=== PATIENT | female | born 1975 | race Caucasian/White ===

== ENCOUNTER 2016-09-04 21:26 | Inpatient (IN) | payer MEDICARE ==
[~2016-09-04 21:26] MED LIST: ROCURONIUM BROMIDE INJ 50 MG/5 ML VIAL IV ONE
[2016-09-04] MEDS ORDERED: FENTANYL CITRATE INJ/PF 100 MCG/2 ML AMPUL ONE (21:38)
[2016-09-04] MEDS ORDERED: PROPOFOL 100 ML IV ONE (21:38)
[2016-09-04] MEDS ORDERED: FENTANYL CITRATE INJ/PF 100 MCG/2 ML AMPUL IV ONE (21:44)
[2016-09-04] MEDS ORDERED: KETAMINE HCL INJ 500 MG/10 ML VIAL IV ONE (21:44)
[2016-09-04] MEDS ORDERED: PROPOFOL 100 ML IV PRN (21:44)
[2016-09-04] MEDS ORDERED: ROCURONIUM BROMIDE INJ 50 MG/5 ML VIAL IV ONE (21:44)
--- NOTE | 2016-09-04 21:44 | ER Document Report ---
ED General - General Chief Complaint: Possible Overdose Stated Complaint: ALTERED MENTAL STATUS Cannot obtain history due to: Altered mental status Notes: Patient is a 41-year-old female who presents by EMS after being found unresponsive face down on her bed covered in feces by her son. In route to the emergency room and she was intermittently combative with EMS staff but then would become completely unresponsive. She has had a history of multiple similar presentations in the past. No additional history can be obtained secondary to patient's mental status and critical nature time of arrival. TRAVEL OUTSIDE OF THE [place] IN LAST 30 DAYS: No - Related Data Allergies/Adverse Reactions: morphine [Morphine] Allergy (Severe, Verified 11/29/15 21:03) VOMITING trazodone [Trazodone] Allergy (Severe, Verified 11/29/15 21:03) codeine [Codeine] Allergy (Intermediate, Verified 11/29/15 21:03) Sulfa (Sulfonamide Antibiotics) Allergy (Verified 11/29/15 20:55) Home Medications: Current Home Medications Baclofen [Baclofen] 20 mg PO Q4H 09/05/16 [History] Ibuprofen [Motrin 800 mg Tablet] 800 mg PO Q8H PRN 09/05/16 [History] Pregabalin [Lyrica] 200 mg PO Q8H 09/05/16 [History] Past Medical History - General Information source: Emergency Med Personnel Cannot obtain history due to: Altered mental status - Social History Smoking Status: Unknown if Ever Smoked Lives with: Family Family History: Other - Depression - Past Medical History Cardiac Medical History: Denies: Hx Heart Attack, Hx Hypertension Pulmonary Medical History: Reports: Hx Asthma - medicated, Hx Sleep Apnea Neurological Medical History: Reports: Hx Migraine. Denies: Hx Cerebrovascular Accident, Hx Seizures GI Medical History: Denies: Hx Hepatitis, Hx Hiatal Hernia, Hx Ulcer Musculoskeltal Medical History: Reports Hx Arthritis Psychiatric Medical History: Reports: Hx Anxiety, Hx Bipolar Disorder, Hx Depression Infectious Medical History: Denies: Hx Hepatitis Past Surgical History: Reports: Hx Adenoidectomy - 3 TIMES REMOVED, Hx Gastric Bypass Surgery, Hx Tonsillectomy - 3 TIMES REMOVED. Denies: Hx Mastectomy, Hx Open Heart Surgery, Hx Pacemaker Review of Systems - Review of Systems -: Yes ROS unobtainable due to patient's medical condition Physical Exam - Vital signs Vitals: Resp BP Pulse Ox 19 144/128 H 99 09/04/16 21:27 09/04/16 21:27 09/04/16 21:27 Interpretation: Normal Notes: PHYSICAL EXAMINATION: GENERAL: Obtunded, GCS 6 HEAD: Atraumatic, normocephalic. EYES: He was 3 mm and equally reactive to light. ENT: Very dry mucous membranes NECK: supple without lymphadenopathy LUNGS: Clear going upper airway noises are transmitted. Breath sounds are otherwise clear to auscultation bilaterally and equal. No wheezes rales or rhonchi. HEART: Regular rate and rhythm without murmurs ABDOMEN: Morbidly obese abdomen. Soft, normoactive bowel sounds. No guarding, no rebound. No masses appreciated. EXTREMITIES: no pitting or edema. No cyanosis. NEUROLOGICAL: Moves all extremities spontaneously to noxious stimuli but does not follow commands in any extremities. Does not open eyes to noxious stimuli. No verbal response. PSYCH: Obtunded SKIN: Warm, Dry, normal turgor, multiple ecchymosis of bilateral knees and lower extremities Course - Re-evaluation Re-evalutation: 09/04/16 21:42 Patient presents obtunded, not protecting her airway. She only responded to noxious stimuli. She will not answer any questions and does not follow commands in any extremity. She had gurgling respirations and given her lack of ability to protect her airway, I moved to intubate the patient shortly after her arrival. This is achieved without difficulty on first pass using a video mac 4. She has been started on propofol for postintubation sedation. [facility], CT of the head, and urinalysis will be obtained. Patient has a repeat history of presenting with altered mental status in the setting of polysubstance overdose and the son who was on scene apparently feels that the patient likely again did this today. 09/04/16 23:05 Patient remains sedated without requirement of escalation of propofol dosing. Laboratories are returning unremarkable. CT the head is pending. Chest x-ray shows appropriate ET tube placement with atelectasis at the left lobe base versus possible pneumonia. Given the absence of fever, tachycardia, hypotension , leukocytosis, or clinical history I do not suspect an acute pneumonia. Patient will require admission. 09/04/16 23:34 Patient continues to be appropriately sedated. Vitals within normal limits. Her laboratories at this point a complete unremarkable and a CT the head is negative. 09/04/16 23:47 Patient remains sedated on minimal propofol. I discussed this case with the hospitalist Dr. An was accepted for admission at this time - Vital Signs Vital signs: Temp Pulse Resp BP Pulse Ox 97.0 F 14 132/100 H 100 09/05/16 02:30 09/05/16 02:30 09/05/16 02:31 09/05/16 02:26 - Laboratory Result Diagrams: 09/04/16 21:50 09/04/16 22:53 Laboratory results interpreted by me: 09/04/16 09/04/16 09/04/16 21:50 22:12 22:53 Hgb 11.3 L Hct 35.6 L MCH 25.6 L MCHC 31.8 L RDW 17.5 H Sodium 145.8 H Potassium 3.3 L Chloride 110 H AST 44 H Total Protein 5.9 L Albumin 3.3 L Urine Ketones TRACE H Salicylates < 1.0 L Acetaminophen < 10 L - Diagnostic Test Radiology reviewed: Image reviewed, Reports reviewed Radiology results interpreted by me: 09/05/16 04:22 Chest x-ray: ET tube is in appropriate position. CT head: No acute intracranial bleed - EKG Interpretation by Me Additional EKG results interpreted by me: 09/05/16 04:23 Normal sinus rhythm. Rate 85. No ST elevations or depressions. QTC is 467. Procedures - Intubation Orotracheal Time of Intubation: 21:40 Airway evaluation: Normal anatomy Mallampati Classification: Class 2 Medications: Ketamine, Other - Rocuronium Intubation method: Orotracheal Blade type: Zackery Blade size: 4 Equipment used: Glidescope ETT size: 7.5 ETT secured at: Gums ETT secured at (cm): 21 Breath Sounds after Intubation: Equal End tidal CO2 confirmed: Yes Ventilator settings: SIMV Tidal volume: 450 FiO2: 45 Respirations: 14 Pressure support: 0 PEEP: 8 Post Intubation Xray: Yes Intubation Complications: No complications Critical Care Note - Critical Care Note Total time excluding time spent on procedures (mins): 40 Comments: Critical care time spent obtaining history from patient or surrogate, discussions with consultants, development of treatment plan with patient or surrogate, evaluation of patient's response to treatment, examination of patient , ordering and performing treatments and interventions, ordering and review of laboratory studies, re-evaluation of patient's condition, ordering and review of radiographic studies and review of old charts Discharge - Discharge Condition: Critical Disposition: ADMITTED INPATIENT Admitting Provider: Linda Barragan Juve Josué Admitted: ICU
[2016-09-04] MEDS ORDERED: NALOXONE HCL INJ/PF 0.4 MG/1 ML SDV IV ONE (21:45)
[2016-09-04] MEDS ORDERED: NORMAL SALINE 1000 ML 1,000 ML IV ONE ×2 (21:45→23:34)
[2016-09-04 22:10] LABS: ABSOLUTE MONOCYTES (AUTO) 0.8 10^3/uL (0.1-1.4); BASOPHILS % (AUTO) 0.5 % (0-2); EOSINOPHILS % (AUTO) 0.6 % (0-6); HEMATOCRIT 35.6 % (36.0-47.0); HEMOGLOBIN 11.3 g/dL (12.0-15.5); HGB HCT DIFFERENCE -1.7; LYMPHOCYTES % (AUTO) 16.9 % (13-45); MEAN CORPUSCULAR HEMOGLOBIN 25.6 pg (27.0-33.4); MEAN CORPUSCULAR HGB CONC 31.8 g/dL (32.0-36.0); MEAN CORPUSCULAR VOLUME 81 fl (80-97); MONOCYTES % (AUTO) 12.9 % (3-13); RED BLOOD COUNT 4.41 10^6/uL (3.72-5.28); RED CELL DISTRIBUTION WIDTH 17.5 % (11.5-14.0); SEGMENTED NEUTROPHILS % (AUTO) 69.1 % (42-78); WHITE BLOOD COUNT 5.9 10^3/uL (4.0-10.5)
[2016-09-04 22:47] LABS: URINE BARBITURATES SCREEN NEGATIVE; URINE METHADONE SCREEN NEGATIVE; URINE OPIATES LOW NEGATIVE; URINE PHENCYCLIDINE SCREEN NEGATIVE
[2016-09-04 22:49] LABS: APPEARANCE,URINE SLIGHTLY-CLOUDY; BILIRUBIN,URINE NEGATIVE (NEGATIVE); GLUCOSE, URINE NEGATIVE (NEGATIVE); KETONES,URINE TRACE mg/dL (NEGATIVE); LEUKOCYTE ESTERASE,URINE NEGATIVE (NEGATIVE); NITRITE,URINE NEGATIVE (NEGATIVE); PROTEIN,URINE NEGATIVE (NEGATIVE); URINE SPECIFIC GRAVITY 1.009; UROBILINOGEN,URINE NEGATIVE mg/dL (<2.0)
[2016-09-04 23:15] LABS: ALANINE AMINOTRANSFERASE 38 U/L (9-52); ALBUMIN 3.3 g/dL (3.5-5.0); ALKALINE PHOSPHATASE 71 U/L (38-126); ANION GAP 11 (5-19); ASPARTATE AMINO TRANSFERASE 44 U/L (14-36); BILIRUBIN,TOTAL 0.9 mg/dL (0.2-1.3); BLOOD UREA NITROGEN 14 mg/dL (7-20); CARBON DIOXIDE 25 mmol/L (22-30); CHLORIDE 110 mmol/L (98-107); CREATININE RESULT 0.58 mg/dL (0.52-1.25); GLUCOSE 110 mg/dL (75-110); POTASSIUM 3.3 mmol/L (3.6-5.0); SODIUM 145.8 mmol/L (137-145); TOTAL PROTEIN 5.9 g/dL (6.3-8.2)
[2016-09-04 23:17] LABS: ALCOHOL < 10 mg/dL (NONE DETECTED)
[2016-09-04] MEDS ORDERED: IPRATROPIUM/ALBUTEROL 0.5-2.5 MG/3 ML AMPUL NEB PRN (23:44)
[2016-09-05 00:09] LABS: PROTHROMBIN TIME 13.7 SEC (11.4-15.4)
[2016-09-05] MEDS ORDERED: NALOXONE HCL INJ/PF 0.4 MG/1 ML SDV ONE (00:15)
[2016-09-05] MEDS: POTASSI CL 20 MEQ/1/2NS 1L 20 MEQ/1,000 ML RTUINJ IV SCH ×4 (00:30→15:59)
[2016-09-05] MEDS: PROPOFOL 100 ML IV PRN ×8 (01:12→22:19)
--- NOTE | 2016-09-05 02:23 | PDOC H&P ---
History of Present Illness Admission Date/PCP: 09/04/16 23:45 Patient complains of: Altered mental status History of Present Illness: GILBERT WANG is a 41 year old female with a past medical history of polysubstance abuse, chronic pain, depression, gastric bypass and recurrent presentations of suspected overdose requiring intubation and critical care. Who is found by her son lying prone on the ground poorly responsive after hearing a loud bang. EMS at the scene discovered her in the deplorable condition surrounded by fecal matter and combative in the emergency room she is poorly responsive without improvement to Narcan and requiring intubation for airway protection. Toxicology is negative she's referred to the hospitalist for admission. Past Medical History Cardiac Medical History: Denies: Myocardial Infarction, Hypertension Pulmonary Medical History: Reports: Asthma - medicated, Sleep Apnea Neurological Medical History: Reports: Migraine Denies: Seizures GI Medical History: Denies: Hepatitis, Hiatal Hernia Musculoskeltal Medical History: Reports: Arthritis Psychiatric Medical History: Reports: Bipolar Disorder, Depression Hematology: Denies: Anemia, Sickle Cell Disease Past Surgical History Past Surgical History: Reports: Adenoidectomy - 3 TIMES REMOVED, Gastric Bypass Surgery, Tonsillectomy - 3 TIMES REMOVED Denies: Amputation, Mastectomy, Pacemaker Social History Information Source: [facility] Records Lives with: Family Smoking Status: Current Every Day Smoker Frequency of Alcohol Use: None Hx Recreational Drug Use: No Drugs: None, Other Hx Prescription Drug Abuse: Yes - opioids and narcotics - Advance Directive Resuscitation Status: Full Code Family History Family History: Other - Depression Parental Family History Reviewed: Yes Children Family History Reviewed: Yes Sibling(s) Family History Reviewed.: Yes Medication/Allergy Home Medications: Ropinirole HCl 2 mg PO BID 12/06/15 Duloxetine HCl 60 mg PO BID 04/08/16 Eszopiclone 6 mg PO QHS 04/08/16 Hydromorphone HCl 4 mg PO BIDP PRN 04/08/16 Meloxicam 7.5 mg PO BIDP PRN 04/08/16 Ondansetron HCl 4 mg PO QID 04/08/16 Pregabalin [Lyrica] 200 mg PO TID 04/08/16 Propranolol HCl [Propranolol HCl ER] 80 mg PO QHS 04/08/16 Tizanidine HCl 8 mg PO QHS 04/08/16 Tizanidine HCl 1 tab PO DAILYP PRN 04/09/16 Acetaminophen [Tylenol 325 mg Tablet] 650 mg PO Q4HP PRN tablet 04/10/16 Baclofen [Baclofen] 20 mg PO Q4H 09/05/16 Ibuprofen [Motrin 800 mg Tablet] 800 mg PO Q8H PRN 09/05/16 Pregabalin [Lyrica] 200 mg PO Q8H 09/05/16 Allergies/Adverse Reactions: morphine [Morphine] Allergy (Severe, Verified 11/29/15 21:03) VOMITING trazodone [Trazodone] Allergy (Severe, Verified 11/29/15 21:03) codeine [Codeine] Allergy (Intermediate, Verified 11/29/15 21:03) Sulfa (Sulfonamide Antibiotics) Allergy (Verified 11/29/15 20:55) Review of Systems ROS unobtainable: Due to mental status Physical Exam Vital Signs: Temp Pulse Resp BP Pulse Ox 96.7 F L 14 129/79 H 100 09/05/16 02:01 09/05/16 02:01 09/05/16 02:01 09/05/16 02:01 General appearance: PRESENT: other - Intubated and sedated Head exam: PRESENT: atraumatic, normocephalic Eye exam: PRESENT: conjunctiva pink, EOMI, PERRLA, other - Pupils symmetric but sluggishly reactive. ABSENT: conjunctival injection, conjunctiva pale, periorbital swelling, scleral icterus Ear exam: PRESENT: normal external ear exam Mouth exam: PRESENT: moist, tongue midline Neck exam: ABSENT: carotid bruit, JVD, lymphadenopathy, thyromegaly Respiratory exam: PRESENT: clear to auscultation geetha. ABSENT: rales, rhonchi, wheezes Cardiovascular exam: PRESENT: RRR. ABSENT: diastolic murmur, rubs, systolic murmur Pulses: PRESENT: normal dorsalis pedis pul Vascular exam: PRESENT: normal capillary refill GI/Abdominal exam: PRESENT: normal bowel sounds, soft. ABSENT: distended, guarding, mass, organolmegaly, rebound, tenderness Rectal exam: PRESENT: deferred Extremities exam: PRESENT: other - Bilateral lower extremity lesion suggestive of erythema nodosum Neurological exam: PRESENT: other - Sedated and encephalopathic Skin exam: PRESENT: dry, intact, warm, other - Lower extremity lesions suggestive of erythema nodosum no open lesion or exudate. ABSENT: cyanosis, rash Adult Front & Back Image: 1 - Multiple 2 to 5 cm erythemic, nonulcerated lesions, no evidence of joint involvement Results Impressions: Chest X-Ray 09/04/16 21:45 IMPRESSION: Patchy airspace disease in the left lower lobe. Endotracheal tube tip overlies the mid trachea. Nasogastric catheters present with tip overlying the body of the stomach. Head CT 09/04/16 22:17 IMPRESSION: No acute intracranial findings. Assessment & Plan - Diagnosis (1) Overdose Is this a current diagnosis for this admission?: YesPlan: Patient has had several recent similar presentations, toxicology negative, EKG and chemistry unremarkable, continue supportive measures (2) Acute encephalopathy Is this a current diagnosis for this admission?: YesPlan: Patient's medication reconciliation includes Esozpiclone. Continue supportive measures (3) Obstructive sleep apnea Is this a current diagnosis for this admission?: YesPlan: Patient intubated for airway protection obtain an ABG in a.m. - Time Time Spent: 30 to 50 Minutes
[2016-09-05 04:33] LABS: ABSOLUTE EOSINOPHILS # (AUTO) 0.1 10^3/uL (0.0-0.6); ABSOLUTE LYMPHOCYTES (AUTO) 1.7 10^3/uL (0.5-4.7); ABSOLUTE MONOCYTES (AUTO) 0.7 10^3/uL (0.1-1.4); ABSOLUTE NEUT (AUTO) 3.1 10^3/uL (1.7-8.2); BASOPHILS % (AUTO) 0.5 % (0-2); EOSINOPHILS % (AUTO) 1.2 % (0-6); HEMOGLOBIN 10.3 g/dL (12.0-15.5); HGB HCT DIFFERENCE -1.1; LYMPHOCYTES % (AUTO) 30.2 % (13-45); MEAN CORPUSCULAR HEMOGLOBIN 26.2 pg (27.0-33.4); MEAN CORPUSCULAR HGB CONC 32.3 g/dL (32.0-36.0); MEAN CORPUSCULAR VOLUME 81 fl (80-97); RED BLOOD COUNT 3.95 10^6/uL (3.72-5.28); RED CELL DISTRIBUTION WIDTH 18.1 % (11.5-14.0); SEGMENTED NEUTROPHILS % (AUTO) 56.1 % (42-78); WHITE BLOOD COUNT 5.5 10^3/uL (4.0-10.5)
[2016-09-05] MEDS ORDERED: INFLUENZA ADLT QUAD (36MOS+) 2016-17 VAC 0.5 ML SYR IM PRN (04:51)
[2016-09-05 05:00] LABS: ANION GAP 13 (5-19); BLOOD UREA NITROGEN 12 mg/dL (7-20); CALCIUM 8.5 mg/dL (8.4-10.2); CARBON DIOXIDE 21 mmol/L (22-30); CHLORIDE 109 mmol/L (98-107); CREATININE RESULT 0.57 mg/dL (0.52-1.25); GLUCOSE 86 mg/dL (75-110); POTASSIUM 3.7 mmol/L (3.6-5.0); SODIUM 142.5 mmol/L (137-145)
[2016-09-05 05:46] LABS: ARTERIAL BLOOD BASE EXCESS -6.2 mmol/L; ARTERIAL BLOOD O2 SATURATION 98.7 % (94-98)
[2016-09-05] MEDS: HEPARIN SOD (PORCINE) 5,000 UNIT/ML 1 ML SYRINGE SUBCUT SCH ×3 (05:51→21:10)
[2016-09-05] MEDS ORDERED: PHARMACY COMMUNICATION ORDER MC NR ×2 (07:45→09:45)
[2016-09-05 08:27] LABS: MAGNESIUM 1.9 mg/dL (1.6-2.3)
--- NOTE | 2016-09-05 08:33 | EKG REPORT ---
SEVERITY:- BORDERLINE ECG - SINUS RHYTHM PROBABLE LEFT ATRIAL ABNORMALITY : Confirmed by: Kody Lloyd MD 05-Sep-2016 08:32:27
[2016-09-05] MEDS ORDERED: GLUCAGON,HUMAN RECOMB 1 MG INJ IM PRN (09:35)
[2016-09-05] MEDS ORDERED: DEXTROSE 50%-WATER 25 GM/50 ML DISP.SYRIN IV PRN ×2 (09:35)
[2016-09-05] MEDS ORDERED: INSULIN LISPRO 100 UNIT/ML 3 ML VIAL SUBCUT PRN (09:35)
[2016-09-05] MEDS ORDERED: DEXTROSE 40% GEL 15 GM TUBE PO PRN ×2 (09:35)
[2016-09-05] MEDS ORDERED: CLONIDINE 0.1 MG/24 HR PATCH.TDWK TD SCH ×2 (10:00→22:00)
[2016-09-05 10:09] LABS: ALANINE AMINOTRANSFERASE 44 U/L (9-52); ALBUMIN 3.1 g/dL (3.5-5.0); ALKALINE PHOSPHATASE 69 U/L (38-126); ANION GAP 10 (5-19); ASPARTATE AMINO TRANSFERASE 38 U/L (14-36); BILIRUBIN,TOTAL 0.8 mg/dL (0.2-1.3); BLOOD UREA NITROGEN 10 mg/dL (7-20); CALCIUM 8.7 mg/dL (8.4-10.2); CARBON DIOXIDE 21 mmol/L (22-30); CHLORIDE 110 mmol/L (98-107); CREATININE RESULT 0.55 mg/dL (0.52-1.25); GLUCOSE 79 mg/dL (75-110); POTASSIUM 3.6 mmol/L (3.6-5.0); SODIUM 140.8 mmol/L (137-145); TOTAL PROTEIN 5.6 g/dL (6.3-8.2)
--- NOTE | 2016-09-05 10:38 | Physician Advisory Note ---
Physician Advisor ProgressNote .: Pursuant to the plan for [facility], I have reviewed the medical record for this patient. Physician Advisor Statement: Possible documentation opportunities if attending agrees: 1. ? - "possible sepsis, present on admission, with hypothermia, tachycardia and acute encephalopathy, due to ____, despite negative BCs, ruled in/out" 2. ? - "Acute Respiratory Failure due to drug overdose [+aspir PNA + obesity], with associated obtunded mental status and 'notably poor respiratory drive' per triage nurse, having gurgling respirations & not protecting her airway" (total GCS was 6-8 initially) 3. "LLL Pneumonia, suspect aspiration type given AMS" 4. "obesity with BMI 43" 5. "hypernatremia, likely due to intravascular volume depletion, due to acute toxic encephalopathy from overdose" As always, if concerned about any unstable VS or abnormal labs, please comment on them & note what doing about them, & please document each day the potential clinical problems you are concerned could occur if pt not kept in hospital for tx at this time. Thanks for your help with documentation accuracy/specificity improvement! Kathya Collier MD [facility] Physician Advisor, Fellow of Hospital Medicine
[2016-09-05] MEDS: PROPRANOLOL HCL 40 MG TABLET NG SCH ×2 (10:51→21:09)
[2016-09-05] MEDS: MIDAZOLAM HCL 100 ML IV PRN ×2 (10:52→18:04)
[2016-09-05] MEDS: HALOPERIDOL LACTATE INJ 5 MG/1 ML VIAL IV PRN (10:53)
[2016-09-05] MEDS: NYSTATIN TOPICAL POWDER 15 GM TP SCH ×2 (10:53→18:59)
[2016-09-05] MEDS: FENTANYL CITRATE INJ/PF 100 MCG/2 ML AMPUL IV PRN ×2 (10:54→18:06)
[2016-09-05 12:25] LABS: ARTERIAL BLOOD O2 SATURATION 98.6 % (94-98)
[2016-09-05 14:52] LABS: ANION GAP 10 (5-19); BLOOD UREA NITROGEN 9 mg/dL (7-20); CALCIUM 8.5 mg/dL (8.4-10.2); CARBON DIOXIDE 19 mmol/L (22-30); CHLORIDE 110 mmol/L (98-107); CREATININE RESULT 0.57 mg/dL (0.52-1.25); GLUCOSE 83 mg/dL (75-110); POTASSIUM 3.6 mmol/L (3.6-5.0); SODIUM 139.1 mmol/L (137-145)
--- NOTE | 2016-09-05 15:01 | PDOC CONSULTATION ---
Consultation Consult Date: 09/05/16 Attending physician:: ANTONIO MCDONNELL Consult reason:: resp fail History of Present Illness Admission Date/PCP: 09/04/16 23:45 History of Present Illness: All information from chart as patient is intubated and sedated no family members at the bedside GILBERT WANG is a 41 year old female with a past medical history of polysubstance abuse, chronic pain, depression, gastric bypass and recurrent presentations of suspected overdose requiring intubation and critical care. Who is found by her son lying prone on the ground poorly responsive after hearing a loud bang. EMS at the scene discovered her in the deplorable condition surrounded by fecal matter and combative in the emergency room she is poorly responsive without improvement to Narcan and requiring intubation for airway protection. Toxicology is negative she's referred to the hospitalist for admission. She has been followed several times in the past [facility] Past Medical History Cardiac Medical History: Denies: Myocardial Infarction, Hypertension Pulmonary Medical History: Reports: Asthma - medicated, Sleep Apnea Neurological Medical History: Reports: Migraine Denies: Seizures GI Medical History: Denies: Hepatitis, Hiatal Hernia Musculoskeltal Medical History: Reports: Arthritis Psychiatric Medical History: Reports: Bipolar Disorder, Depression Hematology: Denies: Anemia, Sickle Cell Disease Past Surgical History Past Surgical History: Reports: Adenoidectomy - 3 TIMES REMOVED, Gastric Bypass Surgery, Tonsillectomy - 3 TIMES REMOVED Denies: Amputation, Mastectomy, Pacemaker Social History Lives with: Family Smoking Status: Unknown if Ever Smoked Frequency of Alcohol Use: None Hx Recreational Drug Use: No Drugs: None, Other Hx Prescription Drug Abuse: Yes - Advance Directive Resuscitation Status: Full Code Family History Family History: Other - Depression Parental Family History Reviewed: No Children Family History Reviewed: No Sibling(s) Family History Reviewed.: No Medication/Allergy Home Medications: Baclofen [Baclofen 20 Mg Tablet] 20 mg PO TID 09/05/16 Ibuprofen [Motrin 800 mg Tablet] 800 mg PO BIDP PRN 09/05/16 Ondansetron HCl [Zofran] 4 mg PO Q8HP PRN 09/05/16 Pregabalin [Lyrica] 200 mg PO TID 09/05/16 Tizanidine HCl [Zanaflex 4 Mg Tablet] 4 mg PO DAILYP PRN 09/05/16 Tizanidine HCl [Zanaflex 4 Mg Tablet] 8 mg PO QHS 09/05/16 Allergies/Adverse Reactions: morphine [Morphine] Allergy (Severe, Verified 11/29/15 21:03) VOMITING trazodone [Trazodone] Allergy (Severe, Verified 11/29/15 21:03) codeine [Codeine] Allergy (Intermediate, Verified 11/29/15 21:03) Sulfa (Sulfonamide Antibiotics) Allergy (Verified 11/29/15 20:55) Review of Systems ROS unobtainable: Due to endotracheal tube Physical Exam Vital Signs: Temp Pulse Resp BP Pulse Ox 97.3 F 62 14 151/90 H 100 09/05/16 06:55 09/05/16 06:00 09/05/16 06:55 09/05/16 06:00 09/05/16 06:55 Intake & Output 09/04/16 09/05/16 09/06/16 06:59 06:59 06:59 Intake Total 697 Output Total 225 Balance 472 Weight 120.8 kg General appearance: PRESENT: no acute distress, disheveled, well-developed, well -nourished Head exam: PRESENT: atraumatic, normocephalic Eye exam: PRESENT: conjunctiva pale Mouth exam: PRESENT: neck supple, tongue midline Neck exam: PRESENT: carotid bruit Respiratory exam: PRESENT: crackles, decreased breath sounds, prolonged expiratory phas, rhonchi, unlabored, other - LLLobe Cardiovascular exam: PRESENT: RRR, +S1, +S2 Pulses: PRESENT: normal radial pulses GI/Abdominal exam: PRESENT: normal bowel sounds, soft. ABSENT: distended, guarding, mass, organolmegaly, rebound, tenderness Rectal exam: PRESENT: deferred Gentrourinary exam: PRESENT: indwelling catheter Skin exam: PRESENT: other - Various stages of subcutaneous ecchymosis was prominent over the lower extremities minor trauma with abrasions and excoriations to heels of feet bilaterally Results Laboratory Results: 09/05/16 04:04 09/05/16 04:04 09/05/16 09/05/16 09/05/16 04:04 04:04 05:18 WBC 5.5 RBC 3.95 Hgb 10.3 L Hct 32.0 L MCV 81 MCH 26.2 L MCHC 32.3 RDW 18.1 H Plt Count 158 Seg Neutrophils % 56.1 Lymphocytes % 30.2 Monocytes % 12.0 Eosinophils % 1.2 Basophils % 0.5 Absolute Neutrophils 3.1 Absolute Lymphocytes 1.7 Absolute Monocytes 0.7 Absolute Eosinophils 0.1 Absolute Basophils 0.0 Carbonic Acid 0.81 L HCO3/H2CO3 Ratio 20:1 ABG pH 7.42 ABG pCO2 27.0 L ABG pO2 132.4 H ABG HCO3 17.0 L ABG O2 Saturation 98.7 H ABG Base Excess -6.2 FiO2 35% Sodium 142.5 Potassium 3.7 Chloride 109 H Carbon Dioxide 21 L Anion Gap 13 BUN 12 Creatinine 0.57 Est GFR ( Amer) > 60 Est GFR (Non-Af Amer) > 60 Glucose 86 Lactic Acid Calcium 8.5 Magnesium 09/05/16 09/05/16 07:59 07:59 WBC RBC Hgb Hct MCV MCH MCHC RDW Plt Count Seg Neutrophils % Lymphocytes % Monocytes % Eosinophils % Basophils % Absolute Neutrophils Absolute Lymphocytes Absolute Monocytes Absolute Eosinophils Absolute Basophils Carbonic Acid HCO3/H2CO3 Ratio ABG pH ABG pCO2 ABG pO2 ABG HCO3 ABG O2 Saturation ABG Base Excess FiO2 Sodium Potassium Chloride Carbon Dioxide Anion Gap BUN Creatinine Est GFR ( Amer) Est GFR (Non-Af Amer) Glucose Lactic Acid 0.6 L Calcium Magnesium 1.9 09/05/16 07:59 Creatine Kinase 299 H Impressions: Chest X-Ray 09/04/16 21:45 IMPRESSION: Patchy airspace disease in the left lower lobe. Endotracheal tube tip overlies the mid trachea. Nasogastric catheters present with tip overlying the body of the stomach. Head CT 09/04/16 22:17 IMPRESSION: No acute intracranial findings. Assessment & Plan - Diagnosis (1) Acute encephalopathy Is this a current diagnosis for this admission?: YesPlan: Etiology of drug abuse not known (2) Overdose Is this a current diagnosis for this admission?: YesPlan: Drug screen is negative at this time (3) Polysubstance overdose Qualifiers: Encounter type: initial encounter Injury intent: undetermined intent Qualified Code(s): T50.904A - Poisoning by unspecified drugs, medicaments and biological substances, undetermined, initial encounter Is this a current diagnosis for this admission?: YesPlan: Per chart long history of polysubstance abuse (4) Morbid obesity with BMI of 50.0-59.9, adult Is this a current diagnosis for this admission?: YesPlan: Unchanged (5) Obstructive sleep apnea Is this a current diagnosis for this admission?: YesPlan: Currently mechanically ventilated no evidence to support use of CPAP if CPAP is at home (6) Asthma Is this a current diagnosis for this admission?: YesPlan: Bronchodilator therapy (7) Community acquired pneumonia Is this a current diagnosis for this admission?: YesPlan: Left lower lobe patchy infiltrates per radiology; WBC normal no left shift no bandemia; T-max 99.5 (8) Tobacco dependency Is this a current diagnosis for this admission?: YesPlan: Transdermal nicotine (9) Acute respiratory failure Qualifiers: Respiratory failure complication: hypoxia and hypercapnia Qualified Code(s): J96.01 - Acute respiratory failure with hypoxia Is this a current diagnosis for this admission?: YesPlan: Continue supplemental oxygenation and ventilation as needed - Time Critical Time spent with patient: 35 or more minutes - 55 minutes
[2016-09-05] MEDS: LANSOPRAZOLE 30 MG TAB.RAP.DR NG SCH (18:05)
--- NOTE | 2016-09-05 19:51 | PDOC PROGRESS REPORT ---
Subjective Progress Note for:: 09/05/16 Subjective:: Patient is intubated and sedated. Unable to obtain review of systems. Review of patient's pharmacy records reveals that she had baclofen filled on . Physical Exam Vital Signs: Temp Pulse Resp BP Pulse Ox 97.3 F 62 14 151/90 H 100 09/05/16 06:55 09/05/16 06:00 09/05/16 06:55 09/05/16 06:00 09/05/16 06:55 Intake & Output 09/04/16 09/05/16 09/06/16 06:59 06:59 06:59 Intake Total 697 Output Total 225 Balance 472 Weight 120.8 kg Exam: General: Intubated and sedated, diaphoretic HEENT: AT/NC, PERRL WITH MYDRIASIS, oropharynx is moist, pink, no scleral icterus, no conjunctival injection Neck: No JVD, trachea midline Chest: Rhonchi left lower lobe, CV: Regular rate and rhythm, normal S1 and S2, no murmur, rub, or gallop Abdomen: Soft, nondistended, hypoactive bowel sounds Extremities: No cyanosis, clubbing or edema Skin: Multiple ecchymoses in various stages of healing on bilateral lower extremities, abrasions bilateral Achilles Results Laboratory Results: 09/05/16 04:04 09/05/16 04:04 09/05/16 09/05/16 09/05/16 04:04 04:04 05:18 WBC 5.5 RBC 3.95 Hgb 10.3 L Hct 32.0 L MCV 81 MCH 26.2 L MCHC 32.3 RDW 18.1 H Plt Count 158 Seg Neutrophils % 56.1 Lymphocytes % 30.2 Monocytes % 12.0 Eosinophils % 1.2 Basophils % 0.5 Absolute Neutrophils 3.1 Absolute Lymphocytes 1.7 Absolute Monocytes 0.7 Absolute Eosinophils 0.1 Absolute Basophils 0.0 Carbonic Acid 0.81 L HCO3/H2CO3 Ratio 20:1 ABG pH 7.42 ABG pCO2 27.0 L ABG pO2 132.4 H ABG HCO3 17.0 L ABG O2 Saturation 98.7 H ABG Base Excess -6.2 FiO2 35% Sodium 142.5 Potassium 3.7 Chloride 109 H Carbon Dioxide 21 L Anion Gap 13 BUN 12 Creatinine 0.57 Est GFR ( Amer) > 60 Est GFR (Non-Af Amer) > 60 Glucose 86 Calcium 8.5 Impressions: Chest X-Ray 09/04/16 21:45 IMPRESSION: Patchy airspace disease in the left lower lobe. Endotracheal tube tip overlies the mid trachea. Nasogastric catheters present with tip overlying the body of the stomach. Head CT 09/04/16 22:17 IMPRESSION: No acute intracranial findings. Assessment & Plan - Diagnosis (1) Sepsis Qualifiers: Sepsis type: sepsis due to unspecified organism Qualified Code(s): A41.9 - Sepsis, unspecified organism Is this a current diagnosis for this admission?: YesPlan: Sepsis criteria met on admission with tachycardia, leukocytosis, and hypothermia. Sepsis likely secondary to aspiration pneumonia. (2) Aspiration pneumonia due to inhalation of vomitus Is this a current diagnosis for this admission?: YesPlan: Have place patient on Levaquin. Pending sputum culture. Scheduled nebulized treatment. (3) Status post gastric bypass for obesity Is this a current diagnosis for this admission?: Yes (4) DVT prophylaxis Is this a current diagnosis for this admission?: YesPlan: Heparin and SCDs (5) GI prophylaxis Is this a current diagnosis for this admission?: YesPlan: Prevacid (6) Dehydration with hypernatremia Is this a current diagnosis for this admission?: YesPlan: Fluid resuscitation (7) Anemia Qualifiers: Anemia type: unspecified type Qualified Code(s): D64.9 - Anemia, unspecified Is this a current diagnosis for this admission?: Yes (8) Metabolic acidosis due to ingestion of drugs or chemicals Is this a current diagnosis for this admission?: YesPlan: Likely secondary to ketosis and also possibly secondary to sepsis. Will check a lactate. Patient has mild high anion gap metabolic acidosis. Have discussed this with Poison Control [facility] and in their experience unlikely to be an ingestion of methanol or other volitileorganic acid. Will use bicarbonate drip if needed. (9) Acute encephalopathy Is this a current diagnosis for this admission?: YesPlan: Secondary to ingestion of medications and underlying sepsis. (10) Acute respiratory failure Qualifiers: Respiratory failure complication: hypoxia and hypercapnia Qualified Code(s): J96.01 - Acute respiratory failure with hypoxia Is this a current diagnosis for this admission?: YesPlan: Have consulted Dr. logan of coronary medicine for ventilator management. (11) Morbid obesity with BMI of 45.0-49.9, adult Is this a current diagnosis for this admission?: Yes (12) Polysubstance overdose Qualifiers: Encounter type: initial encounter Injury intent: undetermined intent Qualified Code(s): T50.904A - Poisoning by unspecified drugs, medicaments and biological substances, undetermined, initial encounter Is this a current diagnosis for this admission?: YesPlan: Likely baclofen overdose. IVC (13) Obstructive sleep apnea Is this a current diagnosis for this admission?: Yes
[2016-09-05] MEDS ORDERED: SODIUM BICARBONATE 8.4% INJ 50 MEQ/50 ML DISP.SYRIN IV ONE (21:00)
[2016-09-05] MEDS: LEVOFLOXACIN 750 MG/D5W RTU 750 MG/150 ML RTUPB IV SCH (21:08)
[2016-09-05] MEDS: NORMAL SALINE 1000 ML 1,000 ML IV PRN (21:09)
[2016-09-05] MEDS ORDERED: DEXTROSE 5%-WATER 1000 ML 1,000 ML with SODIUM BICARBONATE 150 ML IV PRN ×2 (22:00)
[2016-09-05 22:50] LABS: ANION GAP 8 (5-19); BLOOD UREA NITROGEN 8 mg/dL (7-20); CALCIUM 8.7 mg/dL (8.4-10.2); CARBON DIOXIDE 25 mmol/L (22-30); CHLORIDE 108 mmol/L (98-107); CREATININE RESULT 0.58 mg/dL (0.52-1.25); GLUCOSE 100 mg/dL (75-110); POTASSIUM 3.5 mmol/L (3.6-5.0); SODIUM 140.7 mmol/L (137-145)
[2016-09-06] MEDS: PROPOFOL 100 ML IV PRN ×3 (01:54→07:31)
[2016-09-06] MEDS: FENTANYL CITRATE INJ/PF 100 MCG/2 ML AMPUL IV PRN ×2 (03:20→20:20)
[2016-09-06] MEDS: HALOPERIDOL LACTATE INJ 5 MG/1 ML VIAL IV PRN ×3 (03:21→19:38)
[2016-09-06] MEDS: LANSOPRAZOLE 30 MG TAB.RAP.DR NG SCH ×2 (05:05→16:30)
[2016-09-06] MEDS: MIDAZOLAM HCL 100 ML IV PRN (05:05)
[2016-09-06] MEDS: HEPARIN SOD (PORCINE) 5,000 UNIT/ML 1 ML SYRINGE SUBCUT SCH ×3 (05:06→22:03)
[2016-09-06 05:09] LABS: ARTERIAL BLOOD BASE EXCESS 0.4 mmol/L; ARTERIAL BLOOD O2 SATURATION 98.6 % (94-98)
[2016-09-06 05:10] LABS: ALANINE AMINOTRANSFERASE 35 U/L (9-52); ALKALINE PHOSPHATASE 71 U/L (38-126); ANION GAP 8 (5-19); ASPARTATE AMINO TRANSFERASE 31 U/L (14-36); BILIRUBIN,TOTAL 0.8 mg/dL (0.2-1.3); BLOOD UREA NITROGEN 6 mg/dL (7-20); CALCIUM 8.2 mg/dL (8.4-10.2); CARBON DIOXIDE 24 mmol/L (22-30); CHLORIDE 108 mmol/L (98-107); CREATININE RESULT 0.56 mg/dL (0.52-1.25); GLUCOSE 90 mg/dL (75-110); MAGNESIUM 1.9 mg/dL (1.6-2.3); PHOSPHORUS 3.8 mg/dL (2.5-4.5); POTASSIUM 3.6 mmol/L (3.6-5.0); SODIUM 140.1 mmol/L (137-145); TOTAL PROTEIN 5.8 g/dL (6.3-8.2); TRIGLYCERIDES 371 mg/dL (<150)
[2016-09-06 05:11] LABS: ABSOLUTE EOSINOPHILS # (AUTO) 0.1 10^3/uL (0.0-0.6); ABSOLUTE MONOCYTES (AUTO) 0.7 10^3/uL (0.1-1.4); ABSOLUTE NEUT (AUTO) 5.3 10^3/uL (1.7-8.2); BASOPHILS % (AUTO) 0.4 % (0-2); EOSINOPHILS % (AUTO) 1.3 % (0-6); HEMATOCRIT 33.7 % (36.0-47.0); HEMOGLOBIN 10.9 g/dL (12.0-15.5); LYMPHOCYTES % (AUTO) 13.6 % (13-45); MEAN CORPUSCULAR HEMOGLOBIN 25.9 pg (27.0-33.4); MEAN CORPUSCULAR HGB CONC 32.3 g/dL (32.0-36.0); MEAN CORPUSCULAR VOLUME 80 fl (80-97); MONOCYTES % (AUTO) 9.8 % (3-13); RED CELL DISTRIBUTION WIDTH 17.9 % (11.5-14.0); SEGMENTED NEUTROPHILS % (AUTO) 74.9 % (42-78)
[2016-09-06] MEDS ORDERED: POTASSIUM CHLORIDE 20 MEQ/15 ML UDCUP NG ONE (08:00)
[2016-09-06] MEDS: PROPRANOLOL HCL 40 MG TABLET NG SCH ×2 (10:50→22:04)
[2016-09-06] MEDS: NICOTINE 21 MG/24 HR PATCH.TD24 TD SCH (10:51)
[2016-09-06] MEDS: NYSTATIN TOPICAL POWDER 15 GM TP SCH ×2 (10:51→19:06)
[2016-09-06] MEDS ORDERED: IPRATROPIUM/ALBUTEROL 0.5-2.5 MG/3 ML AMPUL NEB ONE (11:44)
[2016-09-06] MEDS ORDERED: DEXAMETHASONE SOD PHOS INJ 10 MG/1 ML VIAL IV ONE (11:45)
--- NOTE | 2016-09-06 13:00 | PSYCHOLOGICAL NOTE ---
Psych Note - Psych Note Psych Note: Patient is a 41-year-old female who presents by EMS after being found unresponsive face down on her bed covered in feces by her son. In route to the emergency room and she was intermittently combative with EMS staff but then would become completely unresponsive. She has had a history of multiple similar presentations in the past. Patient is currently intubated and unable to undergo psychiatric evaluation. Evaluation will currently need to take place later.
[2016-09-06 14:59] LABS: ARTERIAL BLOOD BASE EXCESS -0.2 mmol/L; ARTERIAL BLOOD O2 SATURATION 85.6 % (94-98)
[2016-09-06 17:22] LABS: ANION GAP 11 (5-19); BLOOD UREA NITROGEN 6 mg/dL (7-20); CALCIUM 8.9 mg/dL (8.4-10.2); CARBON DIOXIDE 22 mmol/L (22-30); CHLORIDE 109 mmol/L (98-107); CREATININE RESULT 0.56 mg/dL (0.52-1.25); GLUCOSE 136 mg/dL (75-110); POTASSIUM 3.8 mmol/L (3.6-5.0); SODIUM 141.9 mmol/L (137-145)
--- NOTE | 2016-09-06 21:27 | PDOC PROGRESS REPORT ---
Subjective Progress Note for:: 09/06/16 Subjective:: Patient seen earlier today on morning rounds. No acute events overnight. Patient weaning well likely to extubate. Physical Exam Vital Signs: Temp Pulse Resp BP Pulse Ox 99.1 F 62 14 130/73 H 100 09/06/16 06:45 09/05/16 20:00 09/06/16 06:45 09/06/16 06:10 09/06/16 06:11 Intake & Output 09/05/16 09/06/16 09/07/16 06:59 06:59 06:59 Intake Total 697 5297 Output Total 225 7 Balance 472 3270 Weight 120.8 kg 125 kg Exam: General: Intubated and sedated, following commands HEENT: AT/NC, PERRL PUPILS 5 MM, oropharynx is moist, pink, no scleral icterus , no conjunctival injection Neck: No JVD, trachea midline Chest: Occasional rhonchi CV: Regular rate and rhythm, normal S1 and S2, no murmur, rub, or gallop Abdomen: Soft, nondistended, active bowel sounds Extremities: No cyanosis, clubbing or edema Skin: Multiple ecchymoses in various stages of healing on bilateral lower extremities, abrasions bilateral Achilles Results Laboratory Results: 09/06/16 04:20 09/06/16 04:20 09/05/16 09/05/16 09/05/16 07:59 07:59 07:59 WBC RBC Hgb Hct MCV MCH MCHC RDW Plt Count Seg Neutrophils % Lymphocytes % Monocytes % Eosinophils % Basophils % Absolute Neutrophils Absolute Lymphocytes Absolute Monocytes Absolute Eosinophils Absolute Basophils Carbonic Acid HCO3/H2CO3 Ratio ABG pH ABG pCO2 ABG pO2 ABG HCO3 ABG O2 Saturation ABG Base Excess FiO2 Sodium 140.8 Potassium 3.6 Chloride 110 H Carbon Dioxide 21 L Anion Gap 10 BUN 10 Creatinine 0.55 Est GFR ( Amer) > 60 Est GFR (Non-Af Amer) > 60 Glucose 79 Lactic Acid 0.6 L Calcium 8.7 Phosphorus Magnesium 1.9 Cancelled Total Bilirubin 0.8 AST 38 H ALT 44 Alkaline Phosphatase 69 Total Protein 5.6 L Albumin 3.1 L Triglycerides 09/05/16 09/05/16 09/05/16 12:00 12:00 13:28 WBC RBC Hgb Hct MCV MCH MCHC RDW Plt Count Seg Neutrophils % Lymphocytes % Monocytes % Eosinophils % Basophils % Absolute Neutrophils Absolute Lymphocytes Absolute Monocytes Absolute Eosinophils Absolute Basophils Carbonic Acid 1.03 L HCO3/H2CO3 Ratio 21:1 ABG pH 7.42 ABG pCO2 34.3 L ABG pO2 124.0 H ABG HCO3 21.9 ABG O2 Saturation 98.6 H ABG Base Excess -2.0 FiO2 30% Sodium Cancelled 139.1 Potassium Cancelled 3.6 Chloride Cancelled 110 H Carbon Dioxide Cancelled 19 L Anion Gap Cancelled 10 BUN Cancelled 9 Creatinine Cancelled 0.57 Est GFR ( Amer) Cancelled > 60 Est GFR (Non-Af Amer) Cancelled > 60 Glucose Cancelled 83 Lactic Acid Calcium Cancelled 8.5 Phosphorus Magnesium Total Bilirubin AST ALT Alkaline Phosphatase Total Protein Albumin Triglycerides 09/05/16 09/06/16 09/06/16 22:35 04:20 04:20 WBC 7.0 RBC 4.20 Hgb 10.9 L Hct 33.7 L MCV 80 MCH 25.9 L MCHC 32.3 RDW 17.9 H Plt Count 116 L Seg Neutrophils % 74.9 Lymphocytes % 13.6 Monocytes % 9.8 Eosinophils % 1.3 Basophils % 0.4 Absolute Neutrophils 5.3 Absolute Lymphocytes 1.0 Absolute Monocytes 0.7 Absolute Eosinophils 0.1 Absolute Basophils 0.0 Carbonic Acid HCO3/H2CO3 Ratio ABG pH ABG pCO2 ABG pO2 ABG HCO3 ABG O2 Saturation ABG Base Excess FiO2 Sodium 140.7 Cancelled Potassium 3.5 L Cancelled Chloride 108 H Cancelled Carbon Dioxide 25 Cancelled Anion Gap 8 Cancelled BUN 8 Cancelled Creatinine 0.58 Cancelled Est GFR ( Amer) > 60 Cancelled Est GFR (Non-Af Amer) > 60 Cancelled Glucose 100 Cancelled Lactic Acid Calcium 8.7 Cancelled Phosphorus Cancelled Magnesium Cancelled Total Bilirubin AST ALT Alkaline Phosphatase Total Protein Albumin Triglycerides 09/06/16 09/06/16 04:20 04:48 WBC RBC Hgb Hct MCV MCH MCHC RDW Plt Count Seg Neutrophils % Lymphocytes % Monocytes % Eosinophils % Basophils % Absolute Neutrophils Absolute Lymphocytes Absolute Monocytes Absolute Eosinophils Absolute Basophils Carbonic Acid 1.07 HCO3/H2CO3 Ratio 22:1 ABG pH 7.45 ABG pCO2 35.4 ABG pO2 121.5 H ABG HCO3 24.1 ABG O2 Saturation 98.6 H ABG Base Excess 0.4 FiO2 30% Sodium 140.1 Potassium 3.6 Chloride 108 H Carbon Dioxide 24 Anion Gap 8 BUN 6 L Creatinine 0.56 Est GFR ( Amer) > 60 Est GFR (Non-Af Amer) > 60 Glucose 90 Lactic Acid Calcium 8.2 L Phosphorus 3.8 Magnesium 1.9 Total Bilirubin 0.8 AST 31 ALT 35 Alkaline Phosphatase 71 Total Protein 5.8 L Albumin 3.0 L Triglycerides 371 H 09/05/16 07:59 Creatine Kinase 299 H Impressions: Head CT 09/04/16 22:17 IMPRESSION: No acute intracranial findings. Assessment & Plan - Diagnosis (1) Sepsis Qualifiers: Sepsis type: sepsis due to unspecified organism Qualified Code(s): A41.9 - Sepsis, unspecified organism Is this a current diagnosis for this admission?: YesPlan: Sepsis criteria met on admission with tachycardia, leukocytosis, and hypothermia. Sepsis likely secondary to aspiration pneumonia. (2) Aspiration pneumonia due to inhalation of vomitus Is this a current diagnosis for this admission?: YesPlan: Have place patient on Levaquin. Will consider transitioning patient to a stronger antibiotic as she appears to have some thrombocytopenia and an increasing left shift today. Pending sputum culture. Scheduled nebulized treatment. (3) Status post gastric bypass for obesity Is this a current diagnosis for this admission?: Yes (4) DVT prophylaxis Is this a current diagnosis for this admission?: Yes (5) GI prophylaxis Is this a current diagnosis for this admission?: Yes (6) Dehydration with hypernatremia Is this a current diagnosis for this admission?: Yes (7) Anemia Qualifiers: Anemia type: unspecified type Qualified Code(s): D64.9 - Anemia, unspecified Is this a current diagnosis for this admission?: Yes (8) Metabolic acidosis due to ingestion of drugs or chemicals Is this a current diagnosis for this admission?: Yes (9) Acute encephalopathy Is this a current diagnosis for this admission?: YesPlan: Secondary to ingestion of medications and underlying sepsis. Patient following commands on ventilator despite being on dip rifampin. (10) Acute respiratory failure Qualifiers: Respiratory failure complication: hypoxia and hypercapnia Qualified Code(s): J96.01 - Acute respiratory failure with hypoxia Is this a current diagnosis for this admission?: Yes (11) Morbid obesity with BMI of 45.0-49.9, adult Is this a current diagnosis for this admission?: Yes (12) Polysubstance overdose Qualifiers: Encounter type: initial encounter Injury intent: undetermined intent Qualified Code(s): T50.904A - Poisoning by unspecified drugs, medicaments and biological substances, undetermined, initial encounter Is this a current diagnosis for this admission?: YesPlan: Likely baclofen overdose. IVC. Poison control was consulted and agreed with our management and assessment. (13) Obstructive sleep apnea Is this a current diagnosis for this admission?: Yes - Time Time Spent with patient: 35 or more minutes Medications reviewed and adjusted accordingly: Yes
[2016-09-06] MEDS: LEVOFLOXACIN 750 MG/D5W RTU 750 MG/150 ML RTUPB IV SCH (22:03)
[2016-09-07] MEDS: FENTANYL CITRATE INJ/PF 100 MCG/2 ML AMPUL IV PRN ×2 (00:28→04:46)
[2016-09-07] MEDS: HALOPERIDOL LACTATE INJ 5 MG/1 ML VIAL IV PRN ×3 (02:11→16:25)
[2016-09-07 02:19] LABS: ANION GAP 12 (5-19); BLOOD UREA NITROGEN 5 mg/dL (7-20); CALCIUM 9.2 mg/dL (8.4-10.2); CARBON DIOXIDE 22 mmol/L (22-30); CHLORIDE 107 mmol/L (98-107); CREATININE RESULT 0.52 mg/dL (0.52-1.25); GLUCOSE 108 mg/dL (75-110); POTASSIUM 3.8 mmol/L (3.6-5.0)
[2016-09-07 05:17] LABS: ARTERIAL BLOOD BASE EXCESS 0.9 mmol/L; ARTERIAL BLOOD O2 SATURATION 97.8 % (94-98)
[2016-09-07] MEDS: LANSOPRAZOLE 30 MG TAB.RAP.DR NG SCH ×2 (05:51→16:25)
[2016-09-07] MEDS: HEPARIN SOD (PORCINE) 5,000 UNIT/ML 1 ML SYRINGE SUBCUT SCH ×3 (06:12→22:09)
[2016-09-07] MEDS: NORMAL SALINE 1000 ML 1,000 ML IV PRN ×2 (06:41→22:15)
[2016-09-07 06:42] LABS: ABSOLUTE LYMPHOCYTES (AUTO) 1.1 10^3/uL (0.5-4.7); ABSOLUTE MONOCYTES (AUTO) 0.9 10^3/uL (0.1-1.4); ABSOLUTE NEUT (AUTO) 7.2 10^3/uL (1.7-8.2); BASOPHILS % (AUTO) 0.4 % (0-2); EOSINOPHILS % (AUTO) 0.1 % (0-6); HEMATOCRIT 34.9 % (36.0-47.0); HEMOGLOBIN 11.2 g/dL (12.0-15.5); HGB HCT DIFFERENCE -1.3; LYMPHOCYTES % (AUTO) 12.1 % (13-45); MEAN CORPUSCULAR HEMOGLOBIN 25.7 pg (27.0-33.4); MEAN CORPUSCULAR VOLUME 80 fl (80-97); MONOCYTES % (AUTO) 10.1 % (3-13); RED BLOOD COUNT 4.35 10^6/uL (3.72-5.28); RED CELL DISTRIBUTION WIDTH 17.7 % (11.5-14.0); SEGMENTED NEUTROPHILS % (AUTO) 77.3 % (42-78); WHITE BLOOD COUNT 9.3 10^3/uL (4.0-10.5)
[2016-09-07 07:00] LABS: ANION GAP 12 (5-19); BLOOD UREA NITROGEN 4 mg/dL (7-20); CALCIUM 9.3 mg/dL (8.4-10.2); CARBON DIOXIDE 24 mmol/L (22-30); CHLORIDE 104 mmol/L (98-107); CREATININE RESULT 0.55 mg/dL (0.52-1.25); GLUCOSE 97 mg/dL (75-110); MAGNESIUM 1.7 mg/dL (1.6-2.3); POTASSIUM 3.5 mmol/L (3.6-5.0); SODIUM 140.4 mmol/L (137-145)
[2016-09-07] MEDS ORDERED: POTASSIUM CHLORIDE 10 MEQ TABLET.SA PO ONE (07:41)
[2016-09-07] MEDS ORDERED: MAGNESIUM SULFATE/D5W 1 GM/100 ML RTUPB IV ONE (07:41)
[2016-09-07] MEDS ORDERED: LORAZEPAM INJ 2 MG/1 ML VIAL ONE (08:22)
[2016-09-07] MEDS ORDERED: LORAZEPAM INJ 2 MG/1 ML VIAL IV ONE (08:30)
[2016-09-07] MEDS: LORAZEPAM INJ 2 MG/1 ML VIAL IV PRN ×2 (08:37→17:18)
[2016-09-07] MEDS: PROPRANOLOL HCL 40 MG TABLET NG SCH ×2 (10:33→22:11)
[2016-09-07] MEDS: NYSTATIN TOPICAL POWDER 15 GM TP SCH ×2 (10:38→17:20)
[2016-09-07] MEDS: NICOTINE 21 MG/24 HR PATCH.TD24 TD SCH (10:38)
--- NOTE | 2016-09-07 15:31 | PSYCHOLOGICAL NOTE ---
Psych Note - Psych Note Psych Note: Patient is a 41-year-old female who presents by EMS after being found unresponsive face down on her bed covered in feces by her son. In route to the emergency room and she was intermittently combative with EMS staff but then would become completely unresponsive. She has had a history of multiple similar presentations in the past. Patient is very difficult to understand; she is having hard time forming words and has flat affect. Patient was able to communicate the bruises came from tripping because the power went off in her room. She also was able to state that her back hurt and she took baclofen. Patient stated she would like inpatient treatment. Patient will need to be re-evaluated when she can communicate better and is able to engage more effectively.
--- NOTE | 2016-09-07 16:39 | PDOC PROGRESS REPORT ---
Subjective Progress Note for:: 09/07/16 Subjective:: Patient is overly anxious and has not slept according to nursing staff. She is restless. Patient's speech is a whisper. Physical Exam Vital Signs: Temp Pulse Resp BP Pulse Ox 98.8 F 92 26 H 155/107 H 98 09/07/16 06:45 09/06/16 20:00 09/07/16 06:45 09/07/16 06:41 09/07/16 06:45 Intake & Output 09/06/16 09/07/16 09/08/16 06:59 06:59 06:59 Intake Total 5283 1827 Output Total 2026 5050 Balance 3270 -3223 Weight 125 kg 122.3 kg Exam: General: Awake, alert, oriented to self, no acute respiratory distress HEENT: AT/NC, PERRLA, oropharynx is moist, pink, no scleral icterus, no conjunctival injection Neck: No JVD, trachea midline Chest: Clear to auscultation bilaterally CV: Regular rate and rhythm, normal S1 and S2, no murmur, rub, or gallop Abdomen: Soft, nondistended, active bowel sounds, nontender to palpation; no rebound rigidity or guarding Extremities: No cyanosis, clubbing or edema Skin: Multiple ecchymoses in various stages of healing on bilateral lower extremities, abrasions bilateral Achilles Results Laboratory Results: 09/07/16 06:33 09/07/16 06:33 09/06/16 09/06/16 09/07/16 14:42 16:40 00:17 WBC RBC Hgb Hct MCV MCH MCHC RDW Plt Count Seg Neutrophils % Lymphocytes % Monocytes % Eosinophils % Basophils % Absolute Neutrophils Absolute Lymphocytes Absolute Monocytes Absolute Eosinophils Absolute Basophils Carbonic Acid 1.07 HCO3/H2CO3 Ratio 22:1 ABG pH 7.44 ABG pCO2 35.6 ABG pO2 48.1 L ABG HCO3 23.6 ABG O2 Saturation 85.6 L ABG Base Excess -0.2 FiO2 ROOM AIR Sodium 141.9 Cancelled Potassium 3.8 Cancelled Chloride 109 H Cancelled Carbon Dioxide 22 Cancelled Anion Gap 11 Cancelled BUN 6 L Cancelled Creatinine 0.56 Cancelled Est GFR ( Amer) > 60 Cancelled Est GFR (Non-Af Amer) > 60 Cancelled Glucose 136 H Cancelled Calcium 8.9 Cancelled Magnesium 09/07/16 09/07/16 09/07/16 01:46 04:50 06:33 WBC 9.3 RBC 4.35 Hgb 11.2 L Hct 34.9 L MCV 80 MCH 25.7 L MCHC 32.0 RDW 17.7 H Plt Count 210 Seg Neutrophils % 77.3 Lymphocytes % 12.1 L Monocytes % 10.1 Eosinophils % 0.1 Basophils % 0.4 Absolute Neutrophils 7.2 Absolute Lymphocytes 1.1 Absolute Monocytes 0.9 Absolute Eosinophils 0.0 Absolute Basophils 0.0 Carbonic Acid 1.04 L HCO3/H2CO3 Ratio 23:1 ABG pH 7.46 H ABG pCO2 34.7 L ABG pO2 98.4 ABG HCO3 24.3 ABG O2 Saturation 97.8 ABG Base Excess 0.9 FiO2 ROOM AIR Sodium 141.0 Potassium 3.8 Chloride 107 Carbon Dioxide 22 Anion Gap 12 BUN 5 L Creatinine 0.52 Est GFR ( Amer) > 60 Est GFR (Non-Af Amer) > 60 Glucose 108 Calcium 9.2 Magnesium 09/07/16 06:33 WBC RBC Hgb Hct MCV MCH MCHC RDW Plt Count Seg Neutrophils % Lymphocytes % Monocytes % Eosinophils % Basophils % Absolute Neutrophils Absolute Lymphocytes Absolute Monocytes Absolute Eosinophils Absolute Basophils Carbonic Acid HCO3/H2CO3 Ratio ABG pH ABG pCO2 ABG pO2 ABG HCO3 ABG O2 Saturation ABG Base Excess FiO2 Sodium 140.4 Potassium 3.5 L Chloride 104 Carbon Dioxide 24 Anion Gap 12 BUN 4 L Creatinine 0.55 Est GFR ( Amer) > 60 Est GFR (Non-Af Amer) > 60 Glucose 97 Calcium 9.3 Magnesium 1.7 09/05/16 07:59 Creatine Kinase 299 H Impressions: Head CT 09/04/16 22:17 IMPRESSION: No acute intracranial findings. Chest/Abdomen CTA 09/06/16 00:00 IMPRESSION: Minimal bibasilar atelectasis. No pulmonary emboli. Chest X-Ray 09/06/16 06:00 IMPRESSION: No significant interval change compared with exam from 2 days prior. Assessment & Plan - Diagnosis (1) Polysubstance overdose Qualifiers: Encounter type: initial encounter Injury intent: undetermined intent Qualified Code(s): T50.904A - Poisoning by unspecified drugs, medicaments and biological substances, undetermined, initial encounter Is this a current diagnosis for this admission?: YesPlan: Likely baclofen overdose. IVC. Poison control was consulted and agreed with our management and assessment. This is this patient's third polysubstance overdose in 9 months. At this time I insist that this patient be placed for psychiatric evaluation. Currently not stable for placement medically. (2) Sepsis Qualifiers: Sepsis type: sepsis due to unspecified organism Qualified Code(s): A41.9 - Sepsis, unspecified organism Is this a current diagnosis for this admission?: YesPlan: Sepsis criteria met on admission with tachycardia, leukocytosis, and hypothermia. Sepsis likely secondary to aspiration pneumonia. (3) Aspiration pneumonia due to inhalation of vomitus Is this a current diagnosis for this admission?: YesPlan: Have place patient on Levaquin. Pending sputum culture. Scheduled nebulized treatment. Patient underwent CTA yesterday after extubation. Patient was found to have bibasilar atelectasis without consolidation. No pulmonary emboli were seen (4) Status post gastric bypass for obesity Is this a current diagnosis for this admission?: Yes (5) Dehydration with hypernatremia Is this a current diagnosis for this admission?: YesPlan: Fluid resuscitation (6) Anemia Qualifiers: Anemia type: unspecified type Qualified Code(s): D64.9 - Anemia, unspecified Is this a current diagnosis for this admission?: Yes (7) Metabolic acidosis due to ingestion of drugs or chemicals Is this a current diagnosis for this admission?: YesPlan: Now resolved. Likely secondary to ketosis and also possibly secondary to sepsis. Patient had mild high anion gap metabolic acidosis. Have discussed this with Poison Control Center and in their experience unlikely to be an ingestion of methanol or other volitile organic acid. (8) Acute encephalopathy Is this a current diagnosis for this admission?: YesPlan: Secondary to ingestion of medications and underlying sepsis. Also feel there is a component of benzodiazepine withdrawal or possibly narcotic withdrawal. Upon review of patient's outside records, it appears as though in the last month she is no longer prescribed narcotics and benzodiazepines. Patient does continue to get baclofen. It appears as though patient's Risperdal was also stopped. (9) Acute respiratory failure Qualifiers: Respiratory failure complication: hypoxia and hypercapnia Qualified Code(s): J96.01 - Acute respiratory failure with hypoxia Is this a current diagnosis for this admission?: YesPlan: Resolved. (10) Obstructive sleep apnea Is this a current diagnosis for this admission?: Yes (11) DVT prophylaxis Is this a current diagnosis for this admission?: Yes (12) GI prophylaxis Is this a current diagnosis for this admission?: Yes (13) Morbid obesity with BMI of 45.0-49.9, adult Is this a current diagnosis for this admission?: Yes - Time Time Spent with patient: 35 or more minutes Medications reviewed and adjusted accordingly: Yes Anticipated discharge: Other - Psychiatric placement
[2016-09-07] MEDS: LEVOFLOXACIN 750 MG/D5W RTU 750 MG/150 ML RTUPB IV SCH (22:10)
[2016-09-08] MEDS: LANSOPRAZOLE 30 MG TAB.RAP.DR NG SCH ×2 (05:39→16:18)
[2016-09-08] MEDS: HEPARIN SOD (PORCINE) 5,000 UNIT/ML 1 ML SYRINGE SUBCUT SCH ×3 (05:39→21:33)
[2016-09-08] MEDS: NORMAL SALINE 1000 ML 1,000 ML IV PRN (05:40)
[2016-09-08 09:17] LABS: ABSOLUTE EOSINOPHILS # (AUTO) 0.1 10^3/uL (0.0-0.6); ABSOLUTE MONOCYTES (AUTO) 0.4 10^3/uL (0.1-1.4); ABSOLUTE NEUT (AUTO) 2.6 10^3/uL (1.7-8.2); BASOPHILS % (AUTO) 0.5 % (0-2); EOSINOPHILS % (AUTO) 1.5 % (0-6); HEMOGLOBIN 11.3 g/dL (12.0-15.5); HGB HCT DIFFERENCE -1.1; LYMPHOCYTES % (AUTO) 24.1 % (13-45); MEAN CORPUSCULAR HEMOGLOBIN 25.8 pg (27.0-33.4); MEAN CORPUSCULAR HGB CONC 32.1 g/dL (32.0-36.0); MEAN CORPUSCULAR VOLUME 80 fl (80-97); MONOCYTES % (AUTO) 9.1 % (3-13); RED BLOOD COUNT 4.36 10^6/uL (3.72-5.28); SEGMENTED NEUTROPHILS % (AUTO) 64.8 % (42-78); WHITE BLOOD COUNT 4.1 10^3/uL (4.0-10.5)
[2016-09-08] MEDS: NYSTATIN TOPICAL POWDER 15 GM TP SCH ×2 (09:28→17:06)
[2016-09-08] MEDS: PROPRANOLOL HCL 40 MG TABLET NG SCH ×2 (09:30→21:33)
[2016-09-08 09:31] LABS: ANION GAP 15 (5-19); BLOOD UREA NITROGEN 5 mg/dL (7-20); CARBON DIOXIDE 21 mmol/L (22-30); CHLORIDE 103 mmol/L (98-107); CREATININE RESULT 0.57 mg/dL (0.52-1.25); GLUCOSE 90 mg/dL (75-110); POTASSIUM 3.6 mmol/L (3.6-5.0); SODIUM 138.9 mmol/L (137-145)
[2016-09-08] MEDS: NICOTINE 21 MG/24 HR PATCH.TD24 TD SCH (09:32)
[2016-09-08] MEDS: PREGABALIN 100 MG CAPSULE PO SCH ×2 (13:16→17:07)
[2016-09-08] MEDS ORDERED: BACLOFEN 10 MG TABLET PO ONE (16:00)
[2016-09-08] MEDS ORDERED: ACETAMINOPHEN 325 MG TABLET PO ONE (16:00)
--- NOTE | 2016-09-08 17:12 | PDOC PROGRESS REPORT ---
Subjective Progress Note for:: 09/08/16 Subjective:: Patient is much improved today. Patient denies SI or HI. Patient denies chest pain, shortness of breath, abdominal pain, nausea, vomiting, fevers, chills, diarrhea, constipation, headache, new onset weakness. Patient complains of her normal chronic pain. Physical Exam Vital Signs: Temp Pulse Resp BP Pulse Ox 98.3 F 86 20 121/59 L 100 09/08/16 03:43 09/08/16 06:37 09/08/16 03:43 09/08/16 03:43 09/08/16 03:43 Intake & Output 09/07/16 09/08/16 09/09/16 06:59 06:59 06:59 Intake Total 1822059 Output Total 5049 2074 Balance -3222 -15 Weight 122.3 kg 123 kg Exam: General: Awake, alert, oriented to self, no acute respiratory distress HEENT: AT/NC, PERRLA, oropharynx is moist, pink, no scleral icterus, no conjunctival injection Neck: No JVD, trachea midline Chest: Clear to auscultation bilaterally CV: Regular rate and rhythm, normal S1 and S2, no murmur, rub, or gallop Abdomen: Soft, nondistended, active bowel sounds, nontender to palpation; no rebound rigidity or guarding Extremities: No cyanosis, clubbing or edema Skin: Multiple ecchymoses in various stages of healing on bilateral lower extremities, abrasions bilateral Achilles Results Laboratory Results: 09/07/16 06:33 09/07/16 06:33 09/05/16 07:59 Creatine Kinase 299 H Impressions: Head CT 09/04/16 22:17 IMPRESSION: No acute intracranial findings. Chest/Abdomen CTA 09/06/16 00:00 IMPRESSION: Minimal bibasilar atelectasis. No pulmonary emboli. Chest X-Ray 09/06/16 06:00 IMPRESSION: No significant interval change compared with exam from 2 days prior. Assessment & Plan - Diagnosis (1) Polysubstance overdose Qualifiers: Encounter type: initial encounter Injury intent: undetermined intent Qualified Code(s): T50.904A - Poisoning by unspecified drugs, medicaments and biological substances, undetermined, initial encounter Is this a current diagnosis for this admission?: YesPlan: Likely baclofen overdose. Patient reports she took 6 baclofen. IVC. Poison control was consulted and agreed with our management and assessment. This is this patient's third polysubstance overdose in 9 months. At this time I insist that this patient be placed for psychiatric evaluation. Currently stable for placement medically. (2) Sepsis Qualifiers: Sepsis type: sepsis due to unspecified organism Qualified Code(s): A41.9 - Sepsis, unspecified organism Is this a current diagnosis for this admission?: YesPlan: Sepsis criteria met on admission with tachycardia, leukocytosis, and hypothermia. Sepsis likely secondary to pneumonia with Staphylococcus aureus. (3) Status post gastric bypass for obesity Is this a current diagnosis for this admission?: YesPlan: Place on vitamins. (4) Dehydration with hypernatremia Is this a current diagnosis for this admission?: YesPlan: Resolved with rehydration (5) Anemia Qualifiers: Anemia type: unspecified type Qualified Code(s): D64.9 - Anemia, unspecified Is this a current diagnosis for this admission?: Yes (6) Metabolic acidosis due to ingestion of drugs or chemicals Is this a current diagnosis for this admission?: YesPlan: Now resolved. Likely secondary to ketosis and also possibly secondary to sepsis. Patient had mild high anion gap metabolic acidosis. Have discussed this with Poison Control Center and in their experience unlikely to be an ingestion of methanol or other volitile organic acid. (7) Acute encephalopathy Is this a current diagnosis for this admission?: YesPlan: This has now resolved. Secondary to ingestion of medications and underlying sepsis. Also feel there is a component of baclofen withdrawal. (8) Acute respiratory failure Qualifiers: Respiratory failure complication: hypoxia and hypercapnia Qualified Code(s): J96.01 - Acute respiratory failure with hypoxia Is this a current diagnosis for this admission?: YesPlan: Resolved. (9) Obstructive sleep apnea Is this a current diagnosis for this admission?: Yes (10) DVT prophylaxis Is this a current diagnosis for this admission?: Yes (11) GI prophylaxis Is this a current diagnosis for this admission?: Yes (12) Morbid obesity with BMI of 45.0-49.9, adult Is this a current diagnosis for this admission?: Yes - Time Time Spent with patient: 25-34 minutes Medications reviewed and adjusted accordingly: Yes
[2016-09-08] MEDS: MULTIVITAMINS W-IRON TABLET, CHEWABLE PO SCH (17:44)
[2016-09-08] MEDS: CALCIUM CARBONATE 250 MG/VITAMIN D3 125 UNIT TABLET PO SCH (17:45)
[2016-09-08] MEDS: VENLAFAXINE HCL 25 MG TABLET PO SCH (21:34)
[2016-09-08] MEDS ORDERED: CLINDAMYCIN HCL 150 MG CAPSULE PO SCH (22:00)
[2016-09-08] MEDS ORDERED: ARIPIPRAZOLE 5 MG TABLET PO SCH (22:00)
[2016-09-08] MEDS ORDERED: BACLOFEN 10 MG TABLET PO SCH (22:00)
[2016-09-08] MEDS ORDERED: LEVOFLOXACIN 750 MG TABLET PO ONE (22:00)
[2016-09-09] MEDS: ACETAMINOPHEN 325 MG TABLET PO PRN ×2 (00:21→07:25)
[2016-09-09] MEDS: HEPARIN SOD (PORCINE) 5,000 UNIT/ML 1 ML SYRINGE SUBCUT SCH ×2 (05:40→13:26)
[2016-09-09] MEDS: LANSOPRAZOLE 30 MG TAB.RAP.DR NG SCH (05:40)
[2016-09-09] MEDS: NYSTATIN TOPICAL POWDER 15 GM TP SCH (09:10)
[2016-09-09] MEDS: PROPRANOLOL HCL 40 MG TABLET NG SCH (09:14)
[2016-09-09] MEDS: MULTIVITAMINS W-IRON TABLET, CHEWABLE PO SCH (09:14)
[2016-09-09] MEDS: CALCIUM CARBONATE 250 MG/VITAMIN D3 125 UNIT TABLET PO SCH (09:15)
[2016-09-09] MEDS: PREGABALIN 100 MG CAPSULE PO SCH ×2 (09:15→13:25)
[2016-09-09] MEDS: NICOTINE 21 MG/24 HR PATCH.TD24 TD SCH (09:16)
[2016-09-09] MEDS ORDERED: CYANOCOBALAMIN (VITAMIN B-12) 1,000 MCG TABLET PO SCH (10:00)
[2016-09-09] MEDS ORDERED: CHOLECALCIFEROL (D3) 1,000 UNIT TABLET PO SCH (10:00)
[2016-09-09] MEDS ORDERED: LEVOFLOXACIN 750 MG TABLET PO SCH (10:00)
--- NOTE | 2016-09-09 10:03 | PSYCHOLOGICAL NOTE ---
Psych Note - Psych Note Psych Note: Reviewed patient record in preparation for disposition and reevluation. Note, it appears patient has two medical records which have been requested to be merged. Patient is known to this clinician and was seen and discharged for a similar, although less severe overdose of her medications, last week. At the time of discharge, patient was recommended to pursue inpatient or outpatient SA treatment. At that time, patient was not ready, in regards to the Stages of Change model; however, her 18 year old son was in agreement that the patient required further SA treatment, and specifically wanted his mother to go to an inpatient facility. Patient's reportedly found her minimally responsive, and noted to be "covered in feces," when he called 911 just a couple days post discharge. Patient was intubated second to being unable to maintain her airway. Patient was extubated, and per Hospitalist Dr. Holman, patient is medically cleared for inpatient placement. Discussed with Hospitalist SA treatment services in [place], to include voluntary or involuntary programs. At this time, there is only one known inpatient facility in this region who accepts IVC, which is [facility]. Discussed with Hospitalist that patient's SA presents as primary, and must be addressed prior to addressing any underlying psychiatric concerns, like depression. Discussed patient's willingness to change, and whether or not she would agree to inpatient SA treatment. Also discussed, inpatient SA treatment in [place] is largely detox oriented, and few in the [place] offer inpatient treatment beyond detox. At this time , Hospitalist states patient is still experiencing some withdrawal from Baclofen ; however, acknowledges that the patient is outside of the detox window, making her ineligible for detox placement. Conducted check in with patient who today presents A&Ox4 with euthymic mood and her usual flat affect. Patient today states she was not attempting suicide when she took her pills. She states this episode is both her fault and her son's fault. Patient states she and her son were arguing because she was not sleeping , and she took her prescribed 3 pills of Baclofen. Patient states she did not make her son aware she already took her dose, and when he brought her the medications, she accepted and ingested. Patient states she was having trouble sleeping due to her restless leg syndrome, and chronic pain. Patient maintains she had not slept in 3 days' however, this time frame is incongruent with her last discharge date from the ED and re-admission. Patient states she is wiling to go to inpatient SA treatment, and discussed the possibility of doing so. Discussed with patient that she is currently outside the window of requiring detox stabilization. Patient reports she would be willing to engage in an intensive outpatient treatment, or a longer inpatient treatment program, if she is able to identify one. [facility] Clinical Nursing Professor, Otilia inquired into length of admission. Made Coordinator aware patient had been admitted since 09/04. Coordinator states patient is ineligible for [facility] as they are strictly a detox facility and "no longer to drug treatment. The [facility]'s have all this wonderful money for intensive outpatient treatment so they are sent here for detox and then follow up in their community." Patient is A&O. Mood is euthymic with flat affect. Patient denies suicidal/ homicidal ideations, intent, plan, or means. Patient denies A/V H; delusions not noted. Thought processes were organized. Conversational speech was slow for rate, tone, and prosody. Intellectual abilities were estimated within average range. Attention and focus were fair. Insight, judgment, and impulse control were poor. Polysubtance Use Disorder Unspecified Depressive Disorder Patient at this time is recommended to remain under IVC for further observation and disposition. Will attempt to secure placement for what is likely comorbid depression and substance abuse. Concerns for patient's safety due to the frequency and severity of episodes (again, not patient has 2 charts), limited/ poor insight, as well as differing stories regarding her intent behind ingesting these pills. Patient reportedly told RN that she was attempting suicide; however, today stated she did not. I consulted with Dr. Duque in regards to the care and management of this patient. Hospitalist advised of updates and in agreement with disposition and recommendations.
[2016-09-09] MEDS: VENLAFAXINE HCL 25 MG TABLET PO SCH (10:29)
[2016-09-09] MEDS ORDERED: LIDOCAINE 5% (700 MG) TRANSDERMAL ADH..PATCH TP SCH (13:00)
--- NOTE | 2016-09-09 15:22 | PSYCHOLOGICAL NOTE ---
Psych Note - Psych Note Psych Note: Conducted check in with patient who is a 41 year old female admitted to [facility] due to reported overdose of her Baclofen. Patient today is smiling and A&O. Mood presents calm and happy. Patient states she remains in agreement to seek substance abuse services. Discussed with patient the inquiries and referrals made on her behalf and provided psychoeducation regarding treatment options per her insurance and substances abused. Made patient aware that [facility] is not an option, for a myriad of reasons, unless she is able to self pay. Discussed with patient an alternative facility located in [place], [place] and recommended by [facility] who can bill Medicare for SA treatment (vs strictly detox). Patient states while she does not physically have transportation herself, she may have enough money for a [employer] bus, or her friend who had agreed to take her to [place], may be able to assist her down there. Discussed with patient that this program, as discussed yesterday, is voluntary and that due to her no longer meeting criteria for IVC (absence of SI/ HI, A/V H), she would need to pursue treatment. Reviewed with patient the list of resources provided to her, to include SA facilities and local outpatient treatment facilities. Patient continues to deny SI/HI. Discussed with Hospitalist who states she is in agreement with rescinding patient's IVC so she may pursue voluntary treatment. Discussed the IVC criteria , and reviewed patient's current presentation. Hospitalist in agreement that to continue the IVC would violate the patient's rights as she no longer meets criteria. Made Hospitalist aware of potential treatment bed at [facility] in [place], [place]. Requested Clinician call Jake Katz with d/c planning to request assistance. Left vm making Ms. Katz aware of request. Patient is A&Ox4. Mood is calm and happy with smiling affect. Patient denies suicidal/homicidal ideations, intent, plan, or means. Patient denies A/V H; delusions not noted. Thought processes were organizes and rational. Conversational speech was WNL for patient. Intellectual abilities were estimated within average range. Attention and focus were fair. Insight, judgment , and impulse control were poor. Polysubtance Use Disorder Unspecified Depressive Disorder Patient is psychiatrically cleared for discharge and recommended for rescind IVC. A treatment bed in a partial hospitalization program in [place], [place] has been identified and patient is in agreement to pursue this bed upon discharge. Note, there were a myriad of factors which prevented direct placement from the hospital. Specifically, in [place] there no longer appear to be treatment facilities which can bill Medicare, they are strictly detox facilities. Per the [employer]ice, Medicare will only pay for alcohol or benzo detox, and only for up to 7 days. Patient was provided information on treatment programs who will accept jones pay, should she choose to do so. I consulted with Dr. Duque in regards to the care and management of this patient. Hospitalist in agreement with disposition and recommendations.
[2016-09-09 15:43] VITALS: BP 144/110
--- NOTE | 2016-09-09 22:48 | PDOC DISCHARGE SUMMARY ---
General - Admit/Disc Date/PCP Admission Date/Primary Care Provider: 09/04/16 23:45 Discharge Date: 09/09/16 - Discharge Diagnosis (1) Polysubstance overdose Is this a current diagnosis for this admission?: Yes (2) Sepsis Is this a current diagnosis for this admission?: Yes (3) Status post gastric bypass for obesity Is this a current diagnosis for this admission?: Yes (4) Dehydration with hypernatremia Is this a current diagnosis for this admission?: Yes (5) Anemia Is this a current diagnosis for this admission?: Yes (6) Metabolic acidosis due to ingestion of drugs or chemicals Is this a current diagnosis for this admission?: Yes (7) Acute encephalopathy Is this a current diagnosis for this admission?: Yes (8) Acute respiratory failure Is this a current diagnosis for this admission?: Yes (9) Obstructive sleep apnea Is this a current diagnosis for this admission?: Yes (10) Morbid obesity with BMI of 45.0-49.9, adult Is this a current diagnosis for this admission?: Yes - Additional Information Resuscitation Status: Full Code Discharge Diet: Regular Discharge Activity: Activity As Tolerated, Slowly Increase Activity Home Medications: Diclofenac Sodium [Voltaren] 4 inch TOP QIDP PRN 07/09/16 Duloxetine HCl [Cymbalta] 60 mg PO Q12 07/09/16 Eszopiclone [Lunesta] 6 mg PO QHS 07/09/16 Pregabalin [Lyrica 100 mg Capsule] 200 mg PO Q8 07/09/16 Propranolol HCl [Propranolol HCl ER] 80 mg PO DAILY 07/09/16 Risperidone 1 mg PO QHS 07/09/16 Ropinirole HCl [Requip] 1 mg PO QID 07/09/16 Baclofen [Baclofen 10 mg Tablet] 10 mg PO Q12 tablet 07/12/16 Docusate Sodium [Colace 100 mg Capsule] 100 mg PO BID capsule 07/12/16 Ondansetron HCl [Zofran] 4 mg PO Q8HP PRN 09/05/16 Pregabalin [Lyrica] 200 mg PO TID 09/05/16 Tizanidine HCl [Zanaflex 4 mg Tablet] 4 mg PO DAILYP PRN 09/05/16 Baclofen [Baclofen 10 mg Tablet] 10 mg PO QHS tablet 09/09/16 Calcium Carbonate/Vitamin D3 [Os-Maicol 250 mg with Vitamin D 125 Units] 1 tab PO BID tablet 09/09/16 Cholecalciferol (Vitamin D3) [Vitamin D3 1000 Unit Tablet] 1,000 unit PO DAILY tablet 09/09/16 Cyanocobalamin (Vitamin B-12) [Vitamin B-12 1000 mcg Tablet] 1,000 mcg PO DAILY tablet 09/09/16 Levofloxacin [Levaquin 750 mg Tablet] 750 mg PO DAILY #5 tablet 09/09/16 Multivitamins W-Iron [Flintstones Chewable Multivit W/Fe Tab] 2 tab PO BID tab.chew 09/09/16 Nicotine [Nicoderm 21 mg/24 Hr Transderm Patch] 1 each TD DAILY patch.td24 12/21 Pregabalin [Lyrica 100 mg Capsule] 100 mg PO TID capsule 09/09/16 Propranolol HCl [Inderal 40 mg Tablet] 40 mg PO Q12 #30 tablet 09/09/16 Venlafaxine HCl [Effexor 25 mg Tablet] 25 mg PO Q12 #30 tablet 09/09/16 History of Present Illness History of Present Illness: GILBERT WANG is a 41 year old female with a past medical history of polysubstance abuse, chronic pain, depression, gastric bypass and recurrent presentations of suspected overdose requiring intubation and critical care. Who is found by her son lying prone on the ground poorly responsive after hearing a loud bang. EMS at the scene discovered her in the deplorable condition surrounded by fecal matter and combative in the emergency room she is poorly responsive without improvement to Narcan and requiring intubation for airway protection. Toxicology is negative she's referred to the hospitalist for admission. Hospital Course Hospital Course: Patient was initially intubated and in the ICU. Poison control was contacted and so was her pharmacy. It appears as though patient has overdosed on baclofen again. Patient was treated conservatively and quickly extubated. Patient was found to have a staphylococcal aureus pneumonia. She was on Levaquin and did well with this. This was listed as an allergy previously and this was removed from her allergy profile. Patient was seen by psychology and did not meet criteria for IVC. A bed was obtained for patient at [place] [address] . Phone number: . Patient was strongly encouraged to go to this facility and participate in therapy. Have discussed with patient tapering off of her baclofen. Physical Exam Vital Signs: Temp Pulse Resp BP Pulse Ox 97.7 F 73 20 144/110 H 100 09/09/16 15:52 09/09/16 15:52 09/09/16 15:52 09/09/16 15:52 09/09/16 15:52 Intake & Output 09/08/16 09/09/16 09/10/16 06:59 06:59 06:59 Intake Total 2059 2336 520 Output Total 5 1750 Balance -15 586 520 Weight 123 kg 120.8 kg Exam: General: Awake, alert, oriented to person, place, time, situation, no acute respiratory distress HEENT: AT/NC, PERRLA, oropharynx is moist, pink, no scleral icterus, no conjunctival injection Neck: No JVD, trachea midline Chest: Clear to auscultation bilaterally CV: Regular rate and rhythm, normal S1 and S2, no murmur, rub, or gallop Abdomen: Soft, nondistended, active bowel sounds, nontender to palpation; no rebound rigidity or guarding Extremities: No cyanosis, clubbing or edema Neuro: Cranial nerves II through XII are grossly intact without focal deficits Psych: Normal mood and blunted affect Skin: Multiple ecchymoses in various stages of healing on bilateral lower extremities, abrasions bilateral Achilles Results Laboratory Results: 09/08/16 08:44 09/08/16 08:44 09/05/16 07:59 Creatine Kinase 299 H Impressions: Head CT 09/04/16 22:17 IMPRESSION: No acute intracranial findings. Chest/Abdomen CTA 09/06/16 00:00 IMPRESSION: Minimal bibasilar atelectasis. No pulmonary emboli. Chest X-Ray 09/06/16 06:00 IMPRESSION: No significant interval change compared with exam from 2 days prior. Qualifiers PATEINT BEING DISCHARGED WITH ANY OF THE FOLLOWING DIAGNOSIS?: No Plan Time Spent: Less than 30 Minutes
== END 2016-09-09 16:23 | disposition home or self-care (01) | DRG 917 ==
LOC: ER 21:26 → EH 23:45 → ICU 09-05 02:40 → 3S 09-07 11:43
PROVIDERS: ADMIT Internal Medicine; ATTEND Internal Medicine
DX: T42.8X4A Poisoning by antiparkinsonism drugs and other central muscle-tone depressants, undetermined, initial encounter (principal); A41.9 Sepsis, unspecified organism; J96.01 Acute respiratory failure with hypoxia; G93.40 Encephalopathy, unspecified; J96.02 Acute respiratory failure with hypercapnia; J69.0 Pneumonitis due to inhalation of food and vomit; J15.211 Pneumonia due to Methicillin susceptible Staphylococcus aureus; E87.0 Hyperosmolality and hypernatremia; E87.2 Acidosis; Z68.42 Body mass index [BMI] 45.0-49.9, adult; Y92.009 Unspecified place in unspecified non-institutional (private) residence as the place of occurrence of the external cause; E86.0 Dehydration; D64.9 Anemia, unspecified; G47.33 Obstructive sleep apnea (adult) (pediatric); Z98.84 Bariatric surgery status; E66.01 Morbid (severe) obesity due to excess calories; M19.90 Unspecified osteoarthritis, unspecified site; F31.9 Bipolar disorder, unspecified; Z79.899 Other long term (current) drug therapy; Z88.1 Allergy status to other antibiotic agents; Z88.8 Allergy status to other drugs, medicaments and biological substances; F17.210 Nicotine dependence, cigarettes, uncomplicated
CPT/HCPCS: 36415; 70450; 71010; 71275; 80048; 80053; 80178; 80307; 81001; 82550; 82803; 82962; 83605; 83735; 84100; 84478; 84703; 85025; 85610; 87070; 87186; 87205; 93005; 93010; 94002; 94003; 94640; 94660; 96360; 99291; J1100; J1630; J1644; J1956; J2060; J2250; J2310; J2704; J3010; J3475; J3480; J3490; J7030; J7060; J7620

== ENCOUNTER 2016-09-13 08:09 | Inpatient (IN) | payer MEDICARE ==
[2016-09-13] MEDS ORDERED: LORAZEPAM INJ 2 MG/1 ML VIAL IM ONE (08:12)
[2016-09-13] MEDS ORDERED: NORMAL SALINE 1000 ML 1,000 ML IV PRN ×2 (08:13→09:22)
[2016-09-13] MEDS ORDERED: LORAZEPAM INJ 2 MG/1 ML VIAL ONE ×2 (08:15→11:15)
[2016-09-13] MEDS ORDERED: ETOMIDATE INJ/PF 20 MG/10 ML SDV IV ONE ×2 (08:36→08:46)
[2016-09-13 08:45] LABS: ABSOLUTE LYMPHOCYTES (AUTO) 1.4 10^3/uL (0.5-4.7); ABSOLUTE MONOCYTES (AUTO) 1.2 10^3/uL (0.1-1.4); ABSOLUTE NEUT (AUTO) 11.1 10^3/uL (1.7-8.2); BASOPHILS % (AUTO) 0.2 % (0-2); EOSINOPHILS % (AUTO) 0.1 % (0-6); HEMATOCRIT 39.3 % (36.0-47.0); HEMOGLOBIN 12.5 g/dL (12.0-15.5); HGB HCT DIFFERENCE -1.8; LYMPHOCYTES % (AUTO) 10.5 % (13-45); MEAN CORPUSCULAR HEMOGLOBIN 25.6 pg (27.0-33.4); MEAN CORPUSCULAR HGB CONC 31.7 g/dL (32.0-36.0); MEAN CORPUSCULAR VOLUME 81 fl (80-97); MONOCYTES % (AUTO) 8.4 % (3-13); RED BLOOD COUNT 4.87 10^6/uL (3.72-5.28); SEGMENTED NEUTROPHILS % (AUTO) 80.8 % (42-78); WHITE BLOOD COUNT 13.8 10^3/uL (4.0-10.5)
[2016-09-13] MEDS ORDERED: PROPOFOL 100 ML IV ONE ×2 (08:53→11:44)
[2016-09-13 09:16] LABS: ALANINE AMINOTRANSFERASE 29 U/L (9-52); ALBUMIN 4.4 g/dL (3.5-5.0); ALKALINE PHOSPHATASE 82 U/L (38-126); ANION GAP 16 (5-19); ASPARTATE AMINO TRANSFERASE 25 U/L (14-36); BILIRUBIN,TOTAL 0.8 mg/dL (0.2-1.3); BLOOD UREA NITROGEN 22 mg/dL (7-20); CALCIUM 10.2 mg/dL (8.4-10.2); CARBON DIOXIDE 23 mmol/L (22-30); CHLORIDE 107 mmol/L (98-107); CREATININE RESULT 0.53 mg/dL (0.52-1.25); GLUCOSE 113 mg/dL (75-110); LIPASE 128.8 U/L (23-300); POTASSIUM 3.9 mmol/L (3.6-5.0); SODIUM 145.8 mmol/L (137-145); TOTAL PROTEIN 7.5 g/dL (6.3-8.2)
[2016-09-13 09:20] LABS: ALCOHOL < 10 mg/dL (NONE DETECTED)
[2016-09-13 09:22] LABS: VENOUS BLOOD BASE EXCESS -1.7 mmol/L; VENOUS BLOOD HCO3 22.7 mmol/L (20-32); VENOUS BLOOD PCO2 37.3 mmHg (35-63); VENOUS BLOOD PH 7.4 (7.30-7.42)
[2016-09-13] MEDS ORDERED: NORMAL SALINE 1000 ML 1,000 ML IV ONE (09:22)
[2016-09-13 10:29] LABS: APPEARANCE,URINE CLEAR; BILIRUBIN,URINE NEGATIVE (NEGATIVE); GLUCOSE, URINE NEGATIVE (NEGATIVE); KETONES,URINE TRACE mg/dL (NEGATIVE); LEUKOCYTE ESTERASE,URINE NEGATIVE (NEGATIVE); NITRITE,URINE NEGATIVE (NEGATIVE); PROTEIN,URINE NEGATIVE (NEGATIVE); URINE SPECIFIC GRAVITY 1.024; UROBILINOGEN,URINE NEGATIVE mg/dL (<2.0)
[2016-09-13 10:42] LABS: URINE BARBITURATES SCREEN NEGATIVE; URINE METHADONE SCREEN NEGATIVE; URINE OPIATES LOW NEGATIVE; URINE PHENCYCLIDINE SCREEN NEGATIVE
--- NOTE | 2016-09-13 11:34 | PSYCHOLOGICAL NOTE ---
Psych Note - Psych Note Psych Note: Patient presented to [facility] ED by EMS. Patient has been intubated and unable to engage in evaluation. Clinician will be making a report to APS with concerns that patient is unable to manage her medications.
[2016-09-13] MEDS ORDERED: LORAZEPAM INJ 2 MG/1 ML VIAL IV ONE (11:40)
[2016-09-13 12:05] LABS: PARTIAL THROMBOPLASTIN TIME 26.2 SEC (23.5-35.8)
[2016-09-13] MEDS ORDERED: VANCOMYCIN HCL INJ 1000 MG VIAL IV ONE (12:54)
[2016-09-13] MEDS ORDERED: CEFEPIME 2 GM/D5W RTU 50 ML IV ONE (12:54)
--- NOTE | 2016-09-13 13:18 | ER Document Report ---
ED General - General Chief Complaint: Possible Overdose Stated Complaint: ALTERED MENTAL STATUS TRAVEL OUTSIDE OF THE [place] IN LAST 30 DAYS: No - HPI Patient complains to provider of: altered mental status Notes: Patient has a history of multiple admissions to the hospital for substance abuse or substance overdose. Patient was brought in today by EMS after being found having altered mental status at home rolling around and Feces or dog feces at her house. Son states that the patient was not taking any extra medication according to EMS. Upon her arrival here to the ER patient had to be physically restrained patient was noncompliant with any medical therapy. Initially try to give the patient 1 dose of Ativan to help chemically restrain her however in the process of doing this patient did start to require oxygen. Patient continued to state altered and not following commands therefore decision was made to intubate the patient for her safety Otherwise history of present illness is limited due to altered mental status - Related Data Allergies/Adverse Reactions: morphine [Morphine] Allergy (Severe, Verified 09/13/16 11:16) VOMITING trazodone [Trazodone] Allergy (Severe, Verified 09/13/16 11:16) codeine [Codeine] Allergy (Intermediate, Verified 09/13/16 11:16) cinnamon [Cinnamon] Allergy (Unknown, Verified 09/13/16 11:16) Swelling of Throat metformin HCl [From Glucophage] Allergy (Verified 09/13/16 11:16) Sulfa (Sulfonamide Antibiotics) Allergy (Verified 09/13/16 11:16) Home Medications: Current Home Medications Baclofen [Baclofen 10 mg Tablet] 20 mg PO TID 09/13/16 [History] Hydromorphone HCl 4 mg PO BID 09/13/16 [History] Meloxicam 7.5 mg PO BID 09/13/16 [History] Pseudoephedrine HCl [Sudafed] 30 mg PO ASDIR PRN 09/13/16 [History] Ropinirole HCl [Requip] 1 mg PO BID 09/13/16 [History] Past Medical History - Social History Smoking Status: Unknown if Ever Smoked Family History: Reviewed & Not Pertinent, Other - Past Medical History Cardiac Medical History: Reports: Hx Hypertension Denies: Hx Coronary Artery Disease, Hx Heart Attack Pulmonary Medical History: Reports: Hx Asthma, Hx Pneumonia, Hx Sleep Apnea Denies: Hx Bronchitis, Hx COPD Neurological Medical History: Reports: Hx Migraine. Denies: Hx Cerebrovascular Accident, Hx Seizures Renal/ Medical History: Denies: Hx Peritoneal Dialysis GI Medical History: Denies: Hx Hepatitis, Hx Hiatal Hernia, Hx Ulcer Musculoskeltal Medical History: Reports Hx Arthritis Psychiatric Medical History: Reports: Hx Anxiety, Hx Bipolar Disorder, Hx Depression Infectious Medical History: Denies: Hx Hepatitis Past Surgical History: Reports: Hx Adenoidectomy - 3 TIMES REMOVED, Hx Gastric Bypass Surgery, Hx Tonsillectomy - 3 TIMES REMOVED. Denies: Hx Mastectomy, Hx Open Heart Surgery, Hx Pacemaker - Immunizations Hx Diphtheria, Pertussis, Tetanus Vaccination: - unk Hx Pneumococcal Vaccination: 07/07/12 Review of Systems - Review of Systems -: Yes ROS unobtainable due to patient's medical condition - Altered mental status intubated Physical Exam - Vital signs Vitals: Pulse Resp BP Pulse Ox 142 H 18 180/137 H 91 L 09/13/16 08:10 09/13/16 08:10 09/13/16 08:10 09/13/16 08:10 Interpretation: Hypertensive, Tachycardic - General General appearance: Combative, Other - Altered - HEENT Head: Normocephalic, Atraumatic Eyes: Normal Conjunctiva: Normal Cornea: Normal Pupils: Dilated - Dilated reactive to light Sinus: Normal Nasal: Normal Mouth/Lips: Normal Mucous membranes: Normal Pharynx: Normal - Respiratory Respiratory status: No respiratory distress Chest status: Nontender Breath sounds: Normal Chest palpation: Normal - Cardiovascular Rhythm: Regular Heart sounds: Normal auscultation Murmur: No - Abdominal Inspection: Normal Distension: No distension Bowel sounds: Normal Tenderness: Nontender Organomegaly: No organomegaly - Back Back: Normal, Nontender - Extremities General upper extremity: Normal inspection, Nontender, Normal color, Normal ROM , Normal temperature General lower extremity: Normal inspection, Nontender, Normal color, Normal ROM , Normal temperature, Normal weight bearing. No: Juan A's sign - Neurological Neuro grossly intact: Yes Cognition: Confused Steffanie Coma Scale Eye Opening: Spontaneous Steffanie Coma Scale Verbal: Incomprehensible Steffanie Coma Scale Motor: Localizes to Pain [place] Coma Scale Total: 11 Speech: No: Normal - Patient screaming Motor strength normal: LUE, RUE, LLE, RLE Sensory: Normal - Psychological Associated symptoms: Other - Altered mental status combative - Skin Skin Temperature: Warm Skin Moisture: Dry Skin Color: Normal Notes: Multiple bruises throughout the extremities abdomen no signs of bruising on the back. Course - Re-evaluation Re-evalutation: 09/13/16 16:10 Patient coming in with a history of polysubstance abuse altered mental status combative. After administering 1 dose of Ativan patient did start to require oxygen and therefore decision was made to go ahead and intubate the patient as that sedating the patient without airway protection would be very dangerous. CT scan lab work was performed CT scan CTA shows signs of possible pneumonia. Will treat this with the pain vancomycin. Patient was fluid resuscitated otherwise workup shows no other etiology. More likely dissolve chemical induced. Patient will be referred to the hospitalist for admission. - Vital Signs Vital signs: Temp Pulse Resp BP Pulse Ox 97.2 F 119 H 15 130/59 H 100 09/13/16 14:21 09/13/16 08:49 09/13/16 14:21 09/13/16 14:20 09/13/16 14:30 - Laboratory Result Diagrams: 09/13/16 08:28 09/13/16 08:28 Laboratory results interpreted by me: 09/13/16 09/13/16 09/13/16 08:28 08:28 08:28 WBC 13.8 H MCH 25.6 L MCHC 31.7 L RDW 18.0 H Seg Neutrophils % 80.8 H Lymphocytes % 10.5 L Absolute Neutrophils 11.1 H Sodium 145.8 H BUN 22 H Glucose 113 H Lactic Acid 3.5 H Urine Ketones Salicylates < 1.0 L Acetaminophen < 10 L 09/13/16 10:00 WBC MCH MCHC RDW Seg Neutrophils % Lymphocytes % Absolute Neutrophils Sodium BUN Glucose Lactic Acid Urine Ketones TRACE H Salicylates Acetaminophen Procedures - Central Line Right Internal jugular Consent obtained: Yes Central line pre-insertion: Sterile PPE donned, Chloraprep applied, Sterile drapes applied Central line lumen type: Triple Anesthetic type: 1% Lidocaine mL's of anesthesia: 2 Ultrasound guided: Yes CM at insertion site: 20 Line secured with sutures: Yes Central line post-insertion: Blood return from lumens, Biopatch applied, Sutured , Sterile dressing applied, Position confirmed w/ CXR Number of attempts: 1 Complications: No - Intubation Orotracheal Airway evaluation: Abnormal 3-3-2 rule, Large tongue, Obese Mallampati Classification: Class 2 Medications: Etomidate, Other - rocuronium Intubation method: Orotracheal Equipment used: Glidescope, Bougie ETT size: 7.0 ETT secured at: Teeth ETT secured at (cm): 19 Ventilator settings: SIMV Tidal volume: 500 FiO2: 100 Respirations: 12 Pressure support: 10 PEEP: 5 Post Intubation Xray: Yes Notes: 09/13/16 16:12 Patient was recently extubated. Had difficult time in passing the 80 original tube and also the 70 with the glide stylette 'll let therefore a bougie was placed within the airway and et was placed within the airway after sliding the ET tube over the bougie this was confirmed with light prescription scope visualization Critical Care Note - Critical Care Note Total time excluding time spent on procedures (mins): 35 Comments: Multiple evaluations patient requiring intubation central line placement due to altered mental status from polysubstance abuse. Discharge - Discharge Clinical Impression: Acute encephalopathy, Tobacco dependency Polysubstance overdose Qualifiers: Encounter type: initial encounter Injury intent: undetermined intent Qualified Code(s): T50.904A - Poisoning by unspecified drugs, medicaments and biological substances, undetermined, initial encounter Aspiration pneumonia Qualifiers: Aspiration pneumonia type: unspecified Laterality: unspecified laterality Lung location: unspecified part of lung Qualified Code(s): J69.0 - Pneumonitis due to inhalation of food and vomit Condition: Fair Disposition: ADMITTED INPATIENT Admitting Provider: [facility] Unit Admitted: ICU
[2016-09-13] MEDS ORDERED: ALBUTEROL SULFATE 0.083% NEB 2.5 MG/3 ML AMPUL NEB PRN (13:56)
[2016-09-13] MEDS ORDERED: ROCURONIUM BROMIDE INJ 50 MG/5 ML VIAL IV ONE (14:21)
[2016-09-13] MEDS ORDERED: ENOXAPARIN SODIUM INJ 40 MG/0.4 ML DISP.SYRIN SUBCUT ONE (15:00)
[2016-09-13 15:27] LABS: PROTHROMBIN TIME 12.3 SEC (11.4-15.4)
[2016-09-13] MEDS: POTASSI CL 20 MEQ/D5-1/2NS 1L 1,000 ML IV PRN ×2 (16:32→22:09)
[2016-09-13] MEDS: PROPOFOL 100 ML IV PRN ×3 (16:33→22:08)
[2016-09-13 16:43] LABS: ARTERIAL BLOOD BASE EXCESS -1.1 mmol/L; ARTERIAL BLOOD O2 SATURATION 98.6 % (94-98)
[2016-09-13] MEDS ORDERED: INFLUENZA ADLT QUAD (36MOS+) 2016-17 VAC 0.5 ML SYR IM PRN (17:21)
--- NOTE | 2016-09-13 18:02 | PDOC H&P ---
History of Present Illness Admission Date/PCP: 09/13/16 13:56 History of Present Illness: GILBERT WANG is a 41 year old female that is well-known to our facility for frequent polysubstance overdose requiring hospitalization. Patient has history of bipolar disorder and chronic pain. It is thought she overdosed on baclofen. I cannot obtain history from patient as she is sedated and intubated the time of my evaluation. Past Medical History Cardiac Medical History: Reports: Hypertension Denies: Coronary Artery Disease, Myocardial Infarction Pulmonary Medical History: Reports: Asthma, Pneumonia, Sleep Apnea Denies: Bronchitis, Chronic Obstructive Pulmonary Disease (COPD) Neurological Medical History: Reports: Migraine Denies: Seizures GI Medical History: Denies: Hepatitis, Hiatal Hernia Musculoskeltal Medical History: Reports: Arthritis Psychiatric Medical History: Reports: Bipolar Disorder, Depression Hematology: Reports: Anemia Denies: Sickle Cell Disease Past Surgical History Past Surgical History: Reports: Adenoidectomy - 3 TIMES REMOVED, Gastric Bypass Surgery, Tonsillectomy - 3 TIMES REMOVED Denies: Amputation, Mastectomy, Pacemaker Social History Information Source: [facility] Smoking Status: Unknown if Ever Smoked Frequency of Alcohol Use: None Hx Recreational Drug Use: No Drugs: None, Other Hx Prescription Drug Abuse: Yes - Advance Directive Resuscitation Status: Full Code Family History Family History: Reviewed & Not Pertinent, Other Parental Family History Reviewed: Yes Children Family History Reviewed: Yes Sibling(s) Family History Reviewed.: Yes Medication/Allergy Home Medications: Duloxetine HCl [Cymbalta] 60 mg PO Q12 07/09/16 Pregabalin [Lyrica] 200 mg PO TID 09/05/16 Tizanidine HCl [Zanaflex 4 mg Tablet] 4 mg PO DAILYP PRN 09/05/16 Levofloxacin [Levaquin 750 mg Tablet] 750 mg PO DAILY #5 tablet 09/09/16 Propranolol HCl [Inderal 40 mg Tablet] 40 mg PO Q12 #30 tablet 09/09/16 Venlafaxine HCl [Effexor 25 mg Tablet] 25 mg PO Q12 #30 tablet 09/09/16 Baclofen [Baclofen 10 mg Tablet] 20 mg PO TID 09/13/16 Hydromorphone HCl 4 mg PO BID 09/13/16 Meloxicam 7.5 mg PO BID 09/13/16 Pseudoephedrine HCl [Sudafed] 30 mg PO ASDIR PRN 09/13/16 Ropinirole HCl [Requip] 1 mg PO BID 09/13/16 Allergies/Adverse Reactions: morphine [Morphine] Allergy (Severe, Verified 09/13/16 11:16) VOMITING trazodone [Trazodone] Allergy (Severe, Verified 09/13/16 11:16) codeine [Codeine] Allergy (Intermediate, Verified 09/13/16 11:16) cinnamon [Cinnamon] Allergy (Unknown, Verified 09/13/16 11:16) Swelling of Throat metformin HCl [From Glucophage] Allergy (Verified 09/13/16 11:16) Sulfa (Sulfonamide Antibiotics) Allergy (Verified 09/13/16 11:16) Review of Systems ROS unobtainable: Due to endotracheal tube Physical Exam Vital Signs: Temp Pulse Resp BP Pulse Ox 98.1 F 117 H 22 H 135/78 H 95 09/13/16 16:36 09/13/16 16:36 09/13/16 16:36 09/13/16 16:36 09/13/16 16:36 Intake & Output 09/12/16 09/13/16 09/14/16 06:59 06:59 06:59 Output Total 1000 Balance -1000 Weight 127 kg PHYSICAL EXAM: GENERAL: Sedated/intubated HEENT: Normocephalic, no scleral icterus, conjunctiva clear, EOEM intact, PERRLA , moist mucous membranes. Endotracheal tube in place NECK: trachea midline, no thyromegally RESPIRATORY: Bilateral anterior rhonchi CARDIAC: Regular rate and rhythm, no murmur/molly/rub ABDOMEN: Soft, no distension, unable to appreciate tenderness, no guarding, normal bowel sounds, negative Desai sign RECTAL: deferred : deferred EXTREMITIES: No edema, cyanosis, clubbing MUSCULOSKELETAL: No joint swelling or deformity VASCULAR: normal peripheral pulses NEUROLOGIC: Limited by sedated/intubated state SKIN: No rash, no wounds, no worrisome skin lesions Results Laboratory Results: 09/13/16 16:20 Carbonic Acid 1.07 HCO3/H2CO3 Ratio 21:1 ABG pH 7.43 ABG pCO2 35.7 ABG pO2 127.4 H ABG HCO3 22.9 ABG O2 Saturation 98.6 H ABG Base Excess -1.1 FiO2 30% Impressions: Chest X-Ray 09/13/16 09:11 IMPRESSION: LIFE LINES DESCRIBED. MILD PERIHILAR PROMINENCE. Abdomen/Pelvis CT 09/13/16 09:50 IMPRESSION: NO SIGNIFICANT OR ACUTE FINDING IN THE ABDOMEN OR PELVIS ON CT SCAN WITH IV CONTRAST. Chest/Abdomen CTA 09/13/16 09:50 IMPRESSION: No CT angio evidence of acute pulmonary emboli or thoracic aortic dissection. Patchy consolidation in the left lower lobe atelectasis versus pneumonia. Bandlike atelectasis right lung base. Head CT 09/13/16 09:50 IMPRESSION: NORMAL BRAIN CT WITHOUT CONTRAST. Assessment & Plan - Diagnosis (1) Acute respiratory failure Qualifiers: Respiratory failure complication: hypoxia and hypercapnia Qualified Code(s): J96.01 - Acute respiratory failure with hypoxia Is this a current diagnosis for this admission?: YesPlan: Patient was intubated in the emergency department. Continue mechanical ventilation. Follow-up chest x-ray and ABGs. Consult Dr. Shoemaker of pulmonary medicine. (2) Sepsis Qualifiers: Sepsis type: sepsis due to unspecified organism Qualified Code(s): A41.9 - Sepsis, unspecified organism Is this a current diagnosis for this admission?: YesPlan: Secondary to aspiration pneumonia. Start patient on IV cefepime IV Levaquin. Check blood and sputum cultures. (3) Aspiration pneumonia due to inhalation of vomitus Is this a current diagnosis for this admission?: YesPlan: High probability of gram-negative bacteria. Start IV cefepime and Levaquin pending blood and sputum cultures. (4) Polysubstance overdose Qualifiers: Encounter type: initial encounter Injury intent: undetermined intent Qualified Code(s): T50.904A - Poisoning by unspecified drugs, medicaments and biological substances, undetermined, initial encounter Is this a current diagnosis for this admission?: YesPlan: Patient has had multiple episodes of overdose requiring hospitalization. Placed on involuntary commitment. (5) Bipolar affective disorder Qualifiers: Active/Remission status: currently active Current bipolar episode type : mixed Current episode severity: severe Psychotic features: without psychotic features Qualified Code(s): F31.63 - Bipolar disorder, current episode mixed, severe, without psychotic features Is this a current diagnosis for this admission?: Yes (6) Chronic pain Is this a current diagnosis for this admission?: Yes (7) Status post gastric bypass for obesity Is this a current diagnosis for this admission?: Yes - Time Critical Time spent with patient: 35 or more minutes
[2016-09-13 18:25] LABS: APPEARANCE,URINE CLEAR; BILIRUBIN,URINE NEGATIVE (NEGATIVE); GLUCOSE, URINE NEGATIVE (NEGATIVE); KETONES,URINE NEGATIVE (NEGATIVE); LEUKOCYTE ESTERASE,URINE NEGATIVE (NEGATIVE); NITRITE,URINE NEGATIVE (NEGATIVE); PROTEIN,URINE NEGATIVE (NEGATIVE); URINE SPECIFIC GRAVITY 1.033; UROBILINOGEN,URINE NEGATIVE mg/dL (<2.0)
[2016-09-13] MEDS: MIDAZOLAM HCL 100 ML IV PRN (19:24)
--- NOTE | 2016-09-13 19:41 | EKG REPORT ---
SEVERITY:- NORMAL ECG - SINUS RHYTHM : Confirmed by: Jacob Arias 13-Sep-2016 19:41:23
[2016-09-13] MEDS: LEVOFLOXACIN 750 MG/D5W RTU 750 MG/150 ML RTUPB IV SCH (20:04)
[2016-09-13] MEDS ORDERED: CEFEPIME 2 GM/D5W RTU 50 ML IV SCH (22:00)
[2016-09-13] MEDS: FAMOTIDINE INJ/PF 20 MG/2 ML SDV IV SCH (22:08)
[2016-09-13] MEDS ORDERED: CEFEPIME INJ 2 GM VIAL ONE (23:23)
[2016-09-14] MEDS: PROPOFOL 100 ML IV PRN ×9 (00:57→21:36)
[2016-09-14] MEDS: HYDROMORPHONE HCL INJ/PF 2 MG/ML AMPULE IV PRN (03:19)
[2016-09-14] MEDS: POTASSI CL 20 MEQ/D5-1/2NS 1L 1,000 ML IV PRN ×3 (03:20→19:52)
[2016-09-14 06:25] LABS: ABSOLUTE EOSINOPHILS # (AUTO) 0.1 10^3/uL (0.0-0.6); ABSOLUTE LYMPHOCYTES (AUTO) 1.3 10^3/uL (0.5-4.7); ABSOLUTE MONOCYTES (AUTO) 0.6 10^3/uL (0.1-1.4); ABSOLUTE NEUT (AUTO) 4.3 10^3/uL (1.7-8.2); BASOPHILS % (AUTO) 0.5 % (0-2); EOSINOPHILS % (AUTO) 1.6 % (0-6); HEMATOCRIT 29.5 % (36.0-47.0); LYMPHOCYTES % (AUTO) 20.1 % (13-45); MEAN CORPUSCULAR HEMOGLOBIN 26.2 pg (27.0-33.4); MEAN CORPUSCULAR HGB CONC 32.3 g/dL (32.0-36.0); MEAN CORPUSCULAR VOLUME 81 fl (80-97); MONOCYTES % (AUTO) 9.7 % (3-13); RED BLOOD COUNT 3.64 10^6/uL (3.72-5.28); SEGMENTED NEUTROPHILS % (AUTO) 68.1 % (42-78); WHITE BLOOD COUNT 6.3 10^3/uL (4.0-10.5)
[2016-09-14 06:30] LABS: ARTERIAL BLOOD BASE EXCESS -0.2 mmol/L; ARTERIAL BLOOD O2 SATURATION 98.5 % (94-98)
[2016-09-14 06:41] LABS: HEMOGLOBIN 9.5 g/dL (12.0-15.5)
[2016-09-14 06:45] LABS: ANION GAP 8 (5-19); BLOOD UREA NITROGEN 9 mg/dL (7-20); CALCIUM 8.3 mg/dL (8.4-10.2); CARBON DIOXIDE 23 mmol/L (22-30); CHLORIDE 111 mmol/L (98-107); CREATININE RESULT 0.39 mg/dL (0.52-1.25); GLUCOSE 86 mg/dL (75-110); SODIUM 142.3 mmol/L (137-145)
[2016-09-14 06:52] LABS: POTASSIUM 3.1 mmol/L (3.6-5.0)
[2016-09-14] MEDS: ENOXAPARIN SODIUM INJ 40 MG/0.4 ML DISP.SYRIN SUBCUT SCH (08:42)
[2016-09-14] MEDS: POTASSI CL 20 MEQ/50 ML RIDER 20 MEQ/50 ML RTUPB IV SCH ×2 (08:43→10:13)
[2016-09-14] MEDS ORDERED: POTASSI CL 20 MEQ/D5-1/2NS 1L 1,000 ML IV PRN (08:51)
[2016-09-14] MEDS ORDERED: NORMAL SALINE INJ/PF 0.9% 10 ML SDV IV PRN (08:57)
[2016-09-14] MEDS: FAMOTIDINE INJ/PF 20 MG/2 ML SDV IV SCH ×2 (09:17→21:35)
[2016-09-14] MEDS ORDERED: CEFEPIME HCL 2 GM in DEXTROSE 5%-WATER 50 ML IV ONE (11:00)
[2016-09-14] MEDS ORDERED: LORAZEPAM INJ 2 MG/1 ML VIAL ONE (11:15)
[2016-09-14] MEDS: MIDAZOLAM HCL 100 ML IV PRN ×2 (11:59→19:54)
[2016-09-14] MEDS: ACETAMINOPHEN 325 MG TABLET NG PRN (11:59)
[2016-09-14] MEDS ORDERED: LORAZEPAM INJ 2 MG/1 ML VIAL IV ONE (12:00)
[2016-09-14] MEDS ORDERED: DEXTROSE 50%-WATER 25 GM/50 ML DISP.SYRIN IV ONE ×2 (12:31→13:07)
[2016-09-14] MEDS ORDERED: INSULIN LISPRO 100 UNIT/ML 3 ML VIAL SUBCUT PRN (12:32)
[2016-09-14] MEDS ORDERED: DEXTROSE 50%-WATER 25 GM/50 ML DISP.SYRIN IV PRN (12:32)
[2016-09-14] MEDS ORDERED: DEXTROSE 40% GEL 15 GM TUBE PO PRN ×2 (12:32)
[2016-09-14] MEDS ORDERED: GLUCAGON,HUMAN RECOMB 1 MG INJ IM PRN (12:32)
[2016-09-14] MEDS: DEXTROSE 50%-WATER 25 GM/50 ML DISP.SYRIN IV PRN ×4 (13:22→21:37)
[2016-09-14] MEDS: LEVOFLOXACIN 750 MG/D5W RTU 750 MG/150 ML RTUPB IV SCH (15:16)
--- NOTE | 2016-09-14 16:08 | PDOC PROGRESS REPORT ---
Subjective Progress Note for:: 09/14/16 Subjective:: Patient developed significant sinus tachycardia when taken off sedation today for weaning. Weaning trial was terminated. I cannot obtain history from patient secondary to sedated/intubated state. Physical Exam Vital Signs: Temp Pulse Resp BP Pulse Ox 100.4 F 117 H 18 126/62 H 97 09/14/16 14:00 09/14/16 12:00 09/14/16 14:45 09/14/16 13:59 09/14/16 15:44 Intake & Output 09/13/16 09/14/16 09/15/16 06:59 06:59 07:59 Output Total 2210 1050 Balance -2210 -1050 Weight 128.6 kg GENERAL: Sedated/intubated HEENT: Normocephalic, no scleral icterus, conjunctiva clear, EOEM intact, PERRLA , moist mucous membranes. Endotracheal tube in place NECK: trachea midline, no thyromegally RESPIRATORY: Clear to auscultation CARDIAC: Regular rate and rhythm, no murmur/molly/rub ABDOMEN: Soft, no distension, unable to appreciate tenderness, no guarding, normal bowel sounds, negative Desai sign EXTREMITIES: No edema, cyanosis, clubbing MUSCULOSKELETAL: No joint swelling or deformity VASCULAR: normal peripheral pulses NEUROLOGIC: Limited by sedated/intubated state SKIN: No rash, no wounds, no worrisome skin lesions Results Laboratory Results: 09/14/16 06:15 09/14/16 06:15 09/13/16 09/13/16 09/14/16 16:20 17:52 06:15 WBC RBC Hgb Hct MCV MCH MCHC RDW Plt Count Seg Neutrophils % Lymphocytes % Monocytes % Eosinophils % Basophils % Absolute Neutrophils Absolute Lymphocytes Absolute Monocytes Absolute Eosinophils Absolute Basophils Carbonic Acid 1.07 1.06 HCO3/H2CO3 Ratio 21:1 22:1 ABG pH 7.43 7.45 ABG pCO2 35.7 35.1 ABG pO2 127.4 H 118.7 H ABG HCO3 22.9 23.6 ABG O2 Saturation 98.6 H 98.5 H ABG Base Excess -1.1 -0.2 FiO2 30% 30% Sodium Potassium Chloride Carbon Dioxide Anion Gap BUN Creatinine Est GFR ( Amer) Est GFR (Non-Af Amer) Glucose Calcium Urine Color YELLOW Urine Appearance CLEAR Urine pH 5.0 Ur Specific [place] 1.033 Urine Protein NEGATIVE Urine Glucose (UA) NEGATIVE Urine Ketones NEGATIVE Urine Blood NEGATIVE Urine Nitrite NEGATIVE Ur Leukocyte Esterase NEGATIVE Urine WBC (Auto) 2 Urine RBC (Auto) 6 09/14/16 09/14/16 06:15 06:15 WBC 6.3 RBC 3.64 L Hgb 9.5 L D Hct 29.5 L MCV 81 MCH 26.2 L MCHC 32.3 RDW 18.0 H Plt Count 160 Seg Neutrophils % 68.1 Lymphocytes % 20.1 Monocytes % 9.7 Eosinophils % 1.6 Basophils % 0.5 Absolute Neutrophils 4.3 Absolute Lymphocytes 1.3 Absolute Monocytes 0.6 Absolute Eosinophils 0.1 Absolute Basophils 0.0 Carbonic Acid HCO3/H2CO3 Ratio ABG pH ABG pCO2 ABG pO2 ABG HCO3 ABG O2 Saturation ABG Base Excess FiO2 Sodium 142.3 Potassium 3.1 L Chloride 111 H Carbon Dioxide 23 Anion Gap 8 BUN 9 Creatinine 0.39 L Est GFR ( Amer) > 60 Est GFR (Non-Af Amer) > 60 Glucose 86 Calcium 8.3 L Urine Color Urine Appearance Urine pH Ur Specific [place] Urine Protein Urine Glucose (UA) Urine Ketones Urine Blood Urine Nitrite Ur Leukocyte Esterase Urine WBC (Auto) Urine RBC (Auto) Impressions: Abdomen/Pelvis CT 09/13/16 09:50 IMPRESSION: NO SIGNIFICANT OR ACUTE FINDING IN THE ABDOMEN OR PELVIS ON CT SCAN WITH IV CONTRAST. Chest/Abdomen CTA 09/13/16 09:50 IMPRESSION: No CT angio evidence of acute pulmonary emboli or thoracic aortic dissection. Patchy consolidation in the left lower lobe atelectasis versus pneumonia. Bandlike atelectasis right lung base. Head CT 09/13/16 09:50 IMPRESSION: NORMAL BRAIN CT WITHOUT CONTRAST. Chest X-Ray 09/14/16 06:00 IMPRESSION: 1. Support tubes and lines as above. 2. Persistent perihilar prominence, similar to prior study. Retrocardiac opacity likely representing atelectasis, infiltrate, or aspiration. Assessment & Plan - Diagnosis (1) Acute respiratory failure Qualifiers: Respiratory failure complication: hypoxia and hypercapnia Qualified Code(s): J96.01 - Acute respiratory failure with hypoxia Is this a current diagnosis for this admission?: YesPlan: Continue mechanical ventilation. Follow-up chest x-ray and ABGs. Pulmonary medicine managing. (2) Sepsis Qualifiers: Sepsis type: sepsis due to unspecified organism Qualified Code(s): A41.9 - Sepsis, unspecified organism Is this a current diagnosis for this admission?: YesPlan: Secondary to aspiration pneumonia. Continue IV cefepime IV Levaquin pending blood and sputum cultures. (3) Aspiration pneumonia due to inhalation of vomitus Is this a current diagnosis for this admission?: YesPlan: High probability of gram-negative bacteria. Continue IV cefepime and Levaquin pending blood and sputum cultures. (4) Polysubstance overdose Qualifiers: Encounter type: initial encounter Injury intent: undetermined intent Qualified Code(s): T50.904A - Poisoning by unspecified drugs, medicaments and biological substances, undetermined, initial encounter Is this a current diagnosis for this admission?: YesPlan: Patient has had multiple episodes of overdose requiring hospitalization. Placed on involuntary commitment. (5) Bipolar affective disorder Qualifiers: Active/Remission status: currently active Current bipolar episode type : mixed Current episode severity: severe Psychotic features: without psychotic features Qualified Code(s): F31.63 - Bipolar disorder, current episode mixed, severe, without psychotic features Is this a current diagnosis for this admission?: Yes (6) Chronic pain Is this a current diagnosis for this admission?: Yes (7) Status post gastric bypass for obesity Is this a current diagnosis for this admission?: Yes - Time Critical Time spent with patient: 35 or more minutes
--- NOTE | 2016-09-14 18:26 | PDOC CONSULTATION ---
Consultation Consult Date: 09/13/16 Attending physician:: GERI MAYFIELD Consult reason:: resp depression History of Present Illness Admission Date/PCP: 09/13/16 13:56 History of Present Illness: Information from chart as patient intubatedGILBERT WANG is a 41 year old female that is well-known to our facility for frequent polysubstance overdose requiring hospitalization. Patient has history of bipolar disorder and chronic pain. It is thought she overdosed on baclofen. I cannot obtain history from patient as she is sedated and intubated the time of my evaluation. Past Medical History Cardiac Medical History: Reports: Hypertension Denies: Coronary Artery Disease, Myocardial Infarction Pulmonary Medical History: Reports: Asthma, Pneumonia, Sleep Apnea Denies: Bronchitis, Chronic Obstructive Pulmonary Disease (COPD) Neurological Medical History: Reports: Migraine Denies: Seizures GI Medical History: Denies: Hepatitis, Hiatal Hernia Musculoskeltal Medical History: Reports: Arthritis Psychiatric Medical History: Reports: Bipolar Disorder, Depression Hematology: Reports: Anemia Denies: Sickle Cell Disease Past Surgical History Past Surgical History: Reports: Adenoidectomy - 3 TIMES REMOVED, Gastric Bypass Surgery, Tonsillectomy - 3 TIMES REMOVED Denies: Amputation, Mastectomy, Pacemaker Social History Information Source: [facility] Records Smoking Status: Unknown if Ever Smoked Passive smoke exposure as: Both Frequency of Alcohol Use: None Hx Recreational Drug Use: No Drugs: None, Other Hx Prescription Drug Abuse: Yes - Advance Directive Resuscitation Status: Full Code Family History Family History: Reviewed & Not Pertinent, Other Parental Family History Reviewed: No Children Family History Reviewed: No Sibling(s) Family History Reviewed.: No Medication/Allergy Home Medications: Duloxetine HCl [Cymbalta] 60 mg PO Q12 07/09/16 Pregabalin [Lyrica] 200 mg PO TID 09/05/16 Tizanidine HCl [Zanaflex 4 mg Tablet] 4 mg PO DAILYP PRN 09/05/16 Levofloxacin [Levaquin 750 mg Tablet] 750 mg PO DAILY #5 tablet 09/09/16 Propranolol HCl [Inderal 40 mg Tablet] 40 mg PO Q12 #30 tablet 09/09/16 Venlafaxine HCl [Effexor 25 mg Tablet] 25 mg PO Q12 #30 tablet 09/09/16 Baclofen [Baclofen 10 mg Tablet] 20 mg PO TID 09/13/16 Hydromorphone HCl 4 mg PO BID 09/13/16 Meloxicam 7.5 mg PO BID 09/13/16 Pseudoephedrine HCl [Sudafed] 30 mg PO ASDIR PRN 09/13/16 Ropinirole HCl [Requip] 1 mg PO BID 09/13/16 Allergies/Adverse Reactions: morphine [Morphine] Allergy (Severe, Verified 09/13/16 11:16) VOMITING trazodone [Trazodone] Allergy (Severe, Verified 09/13/16 11:16) codeine [Codeine] Allergy (Intermediate, Verified 09/13/16 11:16) cinnamon [Cinnamon] Allergy (Unknown, Verified 09/13/16 11:16) Swelling of Throat metformin HCl [From Glucophage] Allergy (Verified 09/13/16 11:16) Sulfa (Sulfonamide Antibiotics) Allergy (Verified 09/13/16 11:16) Review of Systems ROS unobtainable: Due to endotracheal tube Physical Exam Vital Signs: Temp Pulse Resp BP Pulse Ox 97.2 F 71 16 118/50 L 100 09/14/16 06:00 09/13/16 20:25 09/14/16 06:00 09/14/16 05:58 09/14/16 06:00 Intake & Output 09/13/16 09/14/16 09/15/16 06:59 06:59 07:59 Output Total 2210 Balance -2210 Weight 128.6 kg General appearance: PRESENT: no acute distress, disheveled, obese Head exam: PRESENT: atraumatic, normocephalic Eye exam: PRESENT: conjunctiva pale Mouth exam: PRESENT: neck supple, tongue midline, other - ET tube in place Neck exam: ABSENT: carotid bruit, JVD, lymphadenopathy, thyromegaly Respiratory exam: PRESENT: decreased breath sounds, rales, rhonchi, symmetrical , unlabored Cardiovascular exam: PRESENT: RRR, +S1, +S2 Pulses: PRESENT: normal radial pulses GI/Abdominal exam: PRESENT: normal bowel sounds, soft. ABSENT: distended, guarding, mass, organolmegaly, rebound, tenderness Rectal exam: PRESENT: deferred Gentrourinary exam: PRESENT: indwelling catheter Musculoskeletal exam: PRESENT: normal inspection Skin exam: PRESENT: dry, warm Results Laboratory Results: 09/14/16 06:15 09/14/16 06:15 09/13/16 09/13/16 09/14/16 16:20 17:52 06:15 WBC RBC Hgb Hct MCV MCH MCHC RDW Plt Count Seg Neutrophils % Lymphocytes % Monocytes % Eosinophils % Basophils % Absolute Neutrophils Absolute Lymphocytes Absolute Monocytes Absolute Eosinophils Absolute Basophils Carbonic Acid 1.07 1.06 HCO3/H2CO3 Ratio 21:1 22:1 ABG pH 7.43 7.45 ABG pCO2 35.7 35.1 ABG pO2 127.4 H 118.7 H ABG HCO3 22.9 23.6 ABG O2 Saturation 98.6 H 98.5 H ABG Base Excess -1.1 -0.2 FiO2 30% 30% Sodium Potassium Chloride Carbon Dioxide Anion Gap BUN Creatinine Est GFR ( Amer) Est GFR (Non-Af Amer) Glucose Calcium Urine Color YELLOW Urine Appearance CLEAR Urine pH 5.0 Ur Specific [place] 1.033 Urine Protein NEGATIVE Urine Glucose (UA) NEGATIVE Urine Ketones NEGATIVE Urine Blood NEGATIVE Urine Nitrite NEGATIVE Ur Leukocyte Esterase NEGATIVE Urine WBC (Auto) 2 Urine RBC (Auto) 6 09/14/16 09/14/16 06:15 06:15 WBC 6.3 RBC 3.64 L Hgb 9.5 L D Hct 29.5 L MCV 81 MCH 26.2 L MCHC 32.3 RDW 18.0 H Plt Count 160 Seg Neutrophils % 68.1 Lymphocytes % 20.1 Monocytes % 9.7 Eosinophils % 1.6 Basophils % 0.5 Absolute Neutrophils 4.3 Absolute Lymphocytes 1.3 Absolute Monocytes 0.6 Absolute Eosinophils 0.1 Absolute Basophils 0.0 Carbonic Acid HCO3/H2CO3 Ratio ABG pH ABG pCO2 ABG pO2 ABG HCO3 ABG O2 Saturation ABG Base Excess FiO2 Sodium 142.3 Potassium 3.1 L Chloride 111 H Carbon Dioxide 23 Anion Gap 8 BUN 9 Creatinine 0.39 L Est GFR ( Amer) > 60 Est GFR (Non-Af Amer) > 60 Glucose 86 Calcium 8.3 L Urine Color Urine Appearance Urine pH Ur Specific [place] Urine Protein Urine Glucose (UA) Urine Ketones Urine Blood Urine Nitrite Ur Leukocyte Esterase Urine WBC (Auto) Urine RBC (Auto) Impressions: Abdomen/Pelvis CT 09/13/16 09:50 IMPRESSION: NO SIGNIFICANT OR ACUTE FINDING IN THE ABDOMEN OR PELVIS ON CT SCAN WITH IV CONTRAST. Chest/Abdomen CTA 09/13/16 09:50 IMPRESSION: No CT angio evidence of acute pulmonary emboli or thoracic aortic dissection. Patchy consolidation in the left lower lobe atelectasis versus pneumonia. Bandlike atelectasis right lung base. Head CT 09/13/16 09:50 IMPRESSION: NORMAL BRAIN CT WITHOUT CONTRAST. Chest X-Ray 09/14/16 06:00 IMPRESSION: 1. Support tubes and lines as above. 2. Persistent perihilar prominence, similar to prior study. Retrocardiac opacity likely representing atelectasis, infiltrate, or aspiration. Assessment & Plan - Diagnosis (1) Aspiration pneumonia Qualifiers: Aspiration pneumonia type: unspecified Laterality: unspecified laterality Lung location: unspecified part of lung Qualified Code(s): J69.0 - Pneumonitis due to inhalation of food and vomit Is this a current diagnosis for this admission?: Yes (2) Polysubstance overdose Qualifiers: Encounter type: initial encounter Injury intent: undetermined intent Qualified Code(s): T50.904A - Poisoning by unspecified drugs, medicaments and biological substances, undetermined, initial encounter Is this a current diagnosis for this admission?: Yes (3) Acute respiratory failure Qualifiers: Respiratory failure complication: hypoxia and hypercapnia Qualified Code(s): J96.01 - Acute respiratory failure with hypoxia Is this a current diagnosis for this admission?: YesPlan: mechanical ventilation - Time Critical Time spent with patient: 35 or more minutes - 50 min
--- NOTE | 2016-09-14 18:32 | PDOC PROGRESS REPORT ---
Subjective Progress Note for:: 09/14/16 Subjective:: arousable Physical Exam Vital Signs: Temp Pulse Resp BP Pulse Ox 97.2 F 71 16 118/50 L 100 09/14/16 06:00 09/13/16 20:25 09/14/16 06:00 09/14/16 05:58 09/14/16 06:00 Intake & Output 09/13/16 09/14/16 09/15/16 06:59 06:59 07:59 Output Total 2210 Balance -2210 Weight 128.6 kg General appearance: PRESENT: no acute distress, disheveled, obese Head exam: PRESENT: atraumatic, normocephalic Eye exam: PRESENT: conjunctiva pale, EOMI Mouth exam: PRESENT: moist, neck supple, other - ET tube in place Neck exam: ABSENT: carotid bruit, JVD, lymphadenopathy, thyromegaly Respiratory exam: PRESENT: decreased breath sounds, rhonchi, symmetrical, unlabored Cardiovascular exam: PRESENT: RRR, +S1, +S2 Pulses: PRESENT: normal radial pulses GI/Abdominal exam: PRESENT: normal bowel sounds, soft. ABSENT: distended, guarding, mass, organolmegaly, rebound, tenderness Rectal exam: PRESENT: deferred Gentrourinary exam: PRESENT: indwelling catheter Extremities exam: PRESENT: +1 edema Neurological exam: PRESENT: awake Skin exam: PRESENT: dry, intact Results Laboratory Results: 09/14/16 06:15 09/14/16 06:15 09/13/16 09/13/16 09/14/16 16:20 17:52 06:15 WBC RBC Hgb Hct MCV MCH MCHC RDW Plt Count Seg Neutrophils % Lymphocytes % Monocytes % Eosinophils % Basophils % Absolute Neutrophils Absolute Lymphocytes Absolute Monocytes Absolute Eosinophils Absolute Basophils Carbonic Acid 1.07 1.06 HCO3/H2CO3 Ratio 21:1 22:1 ABG pH 7.43 7.45 ABG pCO2 35.7 35.1 ABG pO2 127.4 H 118.7 H ABG HCO3 22.9 23.6 ABG O2 Saturation 98.6 H 98.5 H ABG Base Excess -1.1 -0.2 FiO2 30% 30% Sodium Potassium Chloride Carbon Dioxide Anion Gap BUN Creatinine Est GFR ( Amer) Est GFR (Non-Af Amer) Glucose Calcium Urine Color YELLOW Urine Appearance CLEAR Urine pH 5.0 Ur Specific [place] 1.033 Urine Protein NEGATIVE Urine Glucose (UA) NEGATIVE Urine Ketones NEGATIVE Urine Blood NEGATIVE Urine Nitrite NEGATIVE Ur Leukocyte Esterase NEGATIVE Urine WBC (Auto) 2 Urine RBC (Auto) 6 09/14/16 09/14/16 06:15 06:15 WBC 6.3 RBC 3.64 L Hgb 9.5 L D Hct 29.5 L MCV 81 MCH 26.2 L MCHC 32.3 RDW 18.0 H Plt Count 160 Seg Neutrophils % 68.1 Lymphocytes % 20.1 Monocytes % 9.7 Eosinophils % 1.6 Basophils % 0.5 Absolute Neutrophils 4.3 Absolute Lymphocytes 1.3 Absolute Monocytes 0.6 Absolute Eosinophils 0.1 Absolute Basophils 0.0 Carbonic Acid HCO3/H2CO3 Ratio ABG pH ABG pCO2 ABG pO2 ABG HCO3 ABG O2 Saturation ABG Base Excess FiO2 Sodium 142.3 Potassium 3.1 L Chloride 111 H Carbon Dioxide 23 Anion Gap 8 BUN 9 Creatinine 0.39 L Est GFR ( Amer) > 60 Est GFR (Non-Af Amer) > 60 Glucose 86 Calcium 8.3 L Urine Color Urine Appearance Urine pH Ur Specific [place] Urine Protein Urine Glucose (UA) Urine Ketones Urine Blood Urine Nitrite Ur Leukocyte Esterase Urine WBC (Auto) Urine RBC (Auto) Impressions: Abdomen/Pelvis CT 09/13/16 09:50 IMPRESSION: NO SIGNIFICANT OR ACUTE FINDING IN THE ABDOMEN OR PELVIS ON CT SCAN WITH IV CONTRAST. Chest/Abdomen CTA 09/13/16 09:50 IMPRESSION: No CT angio evidence of acute pulmonary emboli or thoracic aortic dissection. Patchy consolidation in the left lower lobe atelectasis versus pneumonia. Bandlike atelectasis right lung base. Head CT 09/13/16 09:50 IMPRESSION: NORMAL BRAIN CT WITHOUT CONTRAST. Chest X-Ray 09/14/16 06:00 IMPRESSION: 1. Support tubes and lines as above. 2. Persistent perihilar prominence, similar to prior study. Retrocardiac opacity likely representing atelectasis, infiltrate, or aspiration. Assessment & Plan - Diagnosis (1) Aspiration pneumonia Qualifiers: Aspiration pneumonia type: unspecified Laterality: unspecified laterality Lung location: unspecified part of lung Qualified Code(s): J69.0 - Pneumonitis due to inhalation of food and vomit Is this a current diagnosis for this admission?: YesPlan: c albicans (2) Polysubstance overdose Qualifiers: Encounter type: initial encounter Injury intent: undetermined intent Qualified Code(s): T50.904A - Poisoning by unspecified drugs, medicaments and biological substances, undetermined, initial encounter Is this a current diagnosis for this admission?: Yes (3) Acute respiratory failure Qualifiers: Respiratory failure complication: hypoxia and hypercapnia Qualified Code(s): J96.01 - Acute respiratory failure with hypoxia Is this a current diagnosis for this admission?: YesPlan: rr,FIO2,MIn vent airway pressures suggest safe extubation extubate - Time Critical Time spent with patient: 35 or more minutes - 55 min
[2016-09-14] MEDS: CEFEPIME HCL 2 GM in DEXTROSE 5%-WATER 50 ML IV SCH (21:35)
[2016-09-15] MEDS: PROPOFOL 100 ML IV PRN ×8 (00:03→23:04)
[2016-09-15] MEDS: DEXTROSE 50%-WATER 25 GM/50 ML DISP.SYRIN IV PRN ×3 (00:04→13:35)
[2016-09-15] MEDS: POTASSI CL 20 MEQ/D5-1/2NS 1L 1,000 ML IV PRN ×3 (04:41→22:03)
[2016-09-15] MEDS: MIDAZOLAM HCL 100 ML IV PRN ×2 (04:42→20:46)
[2016-09-15 05:40] LABS: ABSOLUTE EOSINOPHILS # (AUTO) 0.1 10^3/uL (0.0-0.6); ABSOLUTE LYMPHOCYTES (AUTO) 1.3 10^3/uL (0.5-4.7); ABSOLUTE MONOCYTES (AUTO) 0.9 10^3/uL (0.1-1.4); ABSOLUTE NEUT (AUTO) 4.7 10^3/uL (1.7-8.2); BASOPHILS % (AUTO) 0.2 % (0-2); EOSINOPHILS % (AUTO) 1.6 % (0-6); HEMOGLOBIN 9.9 g/dL (12.0-15.5); HGB HCT DIFFERENCE -1.3; LYMPHOCYTES % (AUTO) 17.9 % (13-45); MEAN CORPUSCULAR HEMOGLOBIN 25.7 pg (27.0-33.4); MEAN CORPUSCULAR HGB CONC 32.1 g/dL (32.0-36.0); MEAN CORPUSCULAR VOLUME 80 fl (80-97); MONOCYTES % (AUTO) 13.3 % (3-13); RED BLOOD COUNT 3.87 10^6/uL (3.72-5.28); RED CELL DISTRIBUTION WIDTH 18.3 % (11.5-14.0)
[2016-09-15 06:08] LABS: ARTERIAL BLOOD BASE EXCESS 0.5 mmol/L; ARTERIAL BLOOD O2 SATURATION 98.7 % (94-98)
[2016-09-15 06:10] LABS: ANION GAP 7 (5-19); BLOOD UREA NITROGEN 5 mg/dL (7-20); CALCIUM 8.4 mg/dL (8.4-10.2); CARBON DIOXIDE 25 mmol/L (22-30); CHLORIDE 107 mmol/L (98-107); CREATININE RESULT 0.44 mg/dL (0.52-1.25); GLUCOSE 94 mg/dL (75-110); MAGNESIUM 1.7 mg/dL (1.6-2.3); PHOSPHORUS 4.5 mg/dL (2.5-4.5); POTASSIUM 3.5 mmol/L (3.6-5.0); SODIUM 139.4 mmol/L (137-145)
[2016-09-15] MEDS: ENOXAPARIN SODIUM INJ 40 MG/0.4 ML DISP.SYRIN SUBCUT SCH (08:42)
[2016-09-15] MEDS: FAMOTIDINE INJ/PF 20 MG/2 ML SDV IV SCH ×2 (09:37→23:04)
[2016-09-15] MEDS: CEFEPIME HCL 2 GM in DEXTROSE 5%-WATER 50 ML IV SCH ×2 (09:37→23:05)
[2016-09-15] MEDS ORDERED: POTASSI CL 20 MEQ/50 ML RIDER 20 MEQ/50 ML RTUPB IV ONE (10:00)
[2016-09-15] MEDS ORDERED: SUCCINYLCHOLINE CHLORIDE INJ 200 MG/10 ML VIAL ONE (10:20)
[2016-09-15] MEDS ORDERED: DEXAMETHASONE SOD PHOSPHATE INJ 4 MG/1 ML VIAL ONE (11:47)
[2016-09-15] MEDS ORDERED: RACEPINEPHRINE HCL 2.25% NEB 0.5 ML AMPUL NEB ONE (11:56)
[2016-09-15] MEDS: LORAZEPAM INJ 2 MG/1 ML VIAL IV PRN (12:18)
[2016-09-15 12:21] LABS: ARTERIAL BLOOD BASE EXCESS 2.5 mmol/L; ARTERIAL BLOOD O2 SATURATION 99.1 % (94-98)
[2016-09-15] MEDS: DEXAMETHASONE SOD PHOSPHATE INJ 4 MG/1 ML VIAL IV SCH ×2 (14:11→23:05)
--- NOTE | 2016-09-15 15:18 | PDOC PROGRESS REPORT ---
Subjective Progress Note for:: 09/15/16 Subjective:: Patient had unremarkable lung exam, chest x-ray, ABG this morning and was therefore extubated. She has had upper airway stridor, tachypnea, tachycardia since extubation. This is been somewhat improved with initiation of BiPAP and administration of Ativan. Patient remains very sedate and I cannot obtain review of systems. Physical Exam Vital Signs: Temp Pulse Resp BP Pulse Ox 98.1 F 147 H 28 H 159/75 H 100 09/15/16 08:00 09/15/16 11:43 09/15/16 15:06 09/15/16 13:59 09/15/16 15:06 Intake & Output 09/14/16 09/15/16 09/16/16 05:59 06:59 06:59 Intake Total Output Total 2175 Balance -2175 Weight GENERAL: Sedated, mildly tachypneic HEENT: Conjunctiva clear, nonicteric, moist mucous membranes, no JVD, midline trachea RESPIRATORY: Upper airway stridor noted CARDIAC: Tachycardic/regular ABDOMEN: Soft, nondistended, nontender, positive bowel sounds, no rebound, no guarding EXTREMETIES: No edema, cyanosis, clubbing NEUROLOGIC: Alert, sedated, CN's grossly intact, no focal deficits SKIN: No rash, wounds Results Laboratory Results: 09/15/16 05:20 09/15/16 05:20 09/15/16 09/15/16 09/15/16 05:20 05:20 05:20 WBC 7.0 RBC 3.87 Hgb 9.9 L Hct 31.0 L MCV 80 MCH 25.7 L MCHC 32.1 RDW 18.3 H Plt Count 188 Seg Neutrophils % 67.0 Lymphocytes % 17.9 Monocytes % 13.3 H Eosinophils % 1.6 Basophils % 0.2 Absolute Neutrophils 4.7 Absolute Lymphocytes 1.3 Absolute Monocytes 0.9 Absolute Eosinophils 0.1 Absolute Basophils 0.0 Carbonic Acid 1.01 L HCO3/H2CO3 Ratio 23:1 ABG pH 7.47 H ABG pCO2 33.6 L ABG pO2 126.9 H ABG HCO3 23.8 ABG O2 Saturation 98.7 H ABG Base Excess 0.5 FiO2 30% Sodium 139.4 Potassium 3.5 L Chloride 107 Carbon Dioxide 25 Anion Gap 7 BUN 5 L Creatinine 0.44 L Est GFR ( Amer) > 60 Est GFR (Non-Af Amer) > 60 Glucose 94 Calcium 8.4 Phosphorus 4.5 Magnesium 1.7 09/15/16 12:10 WBC RBC Hgb Hct MCV MCH MCHC RDW Plt Count Seg Neutrophils % Lymphocytes % Monocytes % Eosinophils % Basophils % Absolute Neutrophils Absolute Lymphocytes Absolute Monocytes Absolute Eosinophils Absolute Basophils Carbonic Acid 1.13 HCO3/H2CO3 Ratio 23:1 ABG pH 7.46 H ABG pCO2 37.7 ABG pO2 157.8 H ABG HCO3 26.3 H ABG O2 Saturation 99.1 H ABG Base Excess 2.5 FiO2 30% Sodium Potassium Chloride Carbon Dioxide Anion Gap BUN Creatinine Est GFR ( Amer) Est GFR (Non-Af Amer) Glucose Calcium Phosphorus Magnesium 09/13/16 17:52 Catheterized Urine Urine Culture - Final NO GROWTH 2 DAYS Impressions: Abdomen/Pelvis CT 09/13/16 09:50 IMPRESSION: NO SIGNIFICANT OR ACUTE FINDING IN THE ABDOMEN OR PELVIS ON CT SCAN WITH IV CONTRAST. Chest/Abdomen CTA 09/13/16 09:50 IMPRESSION: No CT angio evidence of acute pulmonary emboli or thoracic aortic dissection. Patchy consolidation in the left lower lobe atelectasis versus pneumonia. Bandlike atelectasis right lung base. Head CT 09/13/16 09:50 IMPRESSION: NORMAL BRAIN CT WITHOUT CONTRAST. Chest X-Ray 09/15/16 06:00 IMPRESSION: 1. Support tubes and lines as above. 2. Interval improvement in the left retrocardiac density and perihilar prominence in comparison the previous day's study. Assessment & Plan - Diagnosis (1) Acute respiratory failure Qualifiers: Respiratory failure complication: hypoxia and hypercapnia Qualified Code(s): J96.01 - Acute respiratory failure with hypoxia Is this a current diagnosis for this admission?: YesPlan: Status post extubation 09/15/2016. Continue BiPAP. Start IV Decadron for upper airway stridor. ABG postextubation stable. If patient's clinical condition worsens she may have to be reintubated. (2) Sepsis Qualifiers: Sepsis type: sepsis due to unspecified organism Qualified Code(s): A41.9 - Sepsis, unspecified organism Is this a current diagnosis for this admission?: YesPlan: Secondary to aspiration pneumonia. Continue IV cefepime IV Levaquin for now until clinical condition improves. Blood cultures negative. Sputum culture with Nat species likely representing colonization. (3) Aspiration pneumonia due to inhalation of vomitus Is this a current diagnosis for this admission?: YesPlan: High probability of gram-negative bacteria. Continue IV cefepime and Levaquin until clinical status improves. (4) Polysubstance overdose Qualifiers: Encounter type: initial encounter Injury intent: undetermined intent Qualified Code(s): T50.904A - Poisoning by unspecified drugs, medicaments and biological substances, undetermined, initial encounter Is this a current diagnosis for this admission?: YesPlan: Patient has had multiple episodes of overdose requiring hospitalization. Placed on involuntary commitment. (5) Bipolar affective disorder Qualifiers: Active/Remission status: currently active Current bipolar episode type : mixed Current episode severity: severe Psychotic features: without psychotic features Qualified Code(s): F31.63 - Bipolar disorder, current episode mixed, severe, without psychotic features Is this a current diagnosis for this admission?: Yes (6) Chronic pain Is this a current diagnosis for this admission?: Yes (7) Status post gastric bypass for obesity Is this a current diagnosis for this admission?: Yes (8) Sinus tachycardia Is this a current diagnosis for this admission?: YesPlan: Likely multifactorial to include respiratory failure, possible baclofen withdrawal syndrome. Continue to address causes. (9) Anemia Qualifiers: Anemia type: unspecified type Qualified Code(s): D64.9 - Anemia, unspecified Is this a current diagnosis for this admission?: YesPlan: H&H remains low but stable. (10) Hypokalemia Is this a current diagnosis for this admission?: YesPlan: Replace as needed. (11) Hypoglycemia Is this a current diagnosis for this admission?: YesPlan: Continue dextrose containing IV fluids. Continue Accu-Cheks. (12) DVT prophylaxis Is this a current diagnosis for this admission?: YesPlan: Continue Lovenox. - Time Critical Time spent with patient: 35 or more minutes
[2016-09-15] MEDS: LEVOFLOXACIN 750 MG/D5W RTU 750 MG/150 ML RTUPB IV SCH (16:03)
[2016-09-15 17:29] LABS: ARTERIAL BLOOD BASE EXCESS 0.9 mmol/L; ARTERIAL BLOOD O2 SATURATION 97.2 % (94-98)
--- NOTE | 2016-09-15 18:13 | PDOC PROGRESS REPORT ---
Subjective Progress Note for:: 09/15/16 Subjective:: Yesterday's extubation was delayed due to heart rate Physical Exam Vital Signs: Temp Pulse Resp BP Pulse Ox 98.1 F 96 17 135/91 H 98 09/15/16 08:00 09/15/16 10:00 09/15/16 10:00 09/15/16 10:00 09/15/16 10:15 Intake & Output 09/14/16 09/15/16 09/16/16 05:59 06:59 06:59 Intake Total Output Total 650 Balance -650 Weight General appearance: PRESENT: no acute distress, disheveled, obese Head exam: PRESENT: atraumatic, normocephalic Eye exam: PRESENT: conjunctiva pale Mouth exam: PRESENT: tongue midline, other - Current vital signs are stable ET tube in place Neck exam: ABSENT: carotid bruit, JVD, lymphadenopathy, thyromegaly Respiratory exam: PRESENT: decreased breath sounds, rhonchi, symmetrical, unlabored Cardiovascular exam: PRESENT: RRR, +S1, +S2 Pulses: PRESENT: normal radial pulses GI/Abdominal exam: PRESENT: normal bowel sounds, soft. ABSENT: distended, guarding, mass, organolmegaly, rebound, tenderness Rectal exam: PRESENT: deferred Gentrourinary exam: PRESENT: indwelling catheter Skin exam: PRESENT: warm Results Laboratory Results: 09/15/16 05:20 09/15/16 05:20 09/15/16 09/15/16 09/15/16 05:20 05:20 05:20 WBC 7.0 RBC 3.87 Hgb 9.9 L Hct 31.0 L MCV 80 MCH 25.7 L MCHC 32.1 RDW 18.3 H Plt Count 188 Seg Neutrophils % 67.0 Lymphocytes % 17.9 Monocytes % 13.3 H Eosinophils % 1.6 Basophils % 0.2 Absolute Neutrophils 4.7 Absolute Lymphocytes 1.3 Absolute Monocytes 0.9 Absolute Eosinophils 0.1 Absolute Basophils 0.0 Carbonic Acid 1.01 L HCO3/H2CO3 Ratio 23:1 ABG pH 7.47 H ABG pCO2 33.6 L ABG pO2 126.9 H ABG HCO3 23.8 ABG O2 Saturation 98.7 H ABG Base Excess 0.5 FiO2 30% Sodium 139.4 Potassium 3.5 L Chloride 107 Carbon Dioxide 25 Anion Gap 7 BUN 5 L Creatinine 0.44 L Est GFR ( Amer) > 60 Est GFR (Non-Af Amer) > 60 Glucose 94 Calcium 8.4 Phosphorus 4.5 Magnesium 1.7 09/13/16 17:52 Catheterized Urine Urine Culture - Final NO GROWTH 2 DAYS Impressions: Abdomen/Pelvis CT 09/13/16 09:50 IMPRESSION: NO SIGNIFICANT OR ACUTE FINDING IN THE ABDOMEN OR PELVIS ON CT SCAN WITH IV CONTRAST. Chest/Abdomen CTA 09/13/16 09:50 IMPRESSION: No CT angio evidence of acute pulmonary emboli or thoracic aortic dissection. Patchy consolidation in the left lower lobe atelectasis versus pneumonia. Bandlike atelectasis right lung base. Head CT 09/13/16 09:50 IMPRESSION: NORMAL BRAIN CT WITHOUT CONTRAST. Chest X-Ray 09/15/16 06:00 IMPRESSION: 1. Support tubes and lines as above. 2. Interval improvement in the left retrocardiac density and perihilar prominence in comparison the previous day's study. Assessment & Plan - Diagnosis (1) Aspiration pneumonia Qualifiers: Aspiration pneumonia type: unspecified Laterality: unspecified laterality Lung location: unspecified part of lung Qualified Code(s): J69.0 - Pneumonitis due to inhalation of food and vomit Is this a current diagnosis for this admission?: YesPlan: c albicans (2) Polysubstance overdose Qualifiers: Encounter type: initial encounter Injury intent: undetermined intent Qualified Code(s): T50.904A - Poisoning by unspecified drugs, medicaments and biological substances, undetermined, initial encounter Is this a current diagnosis for this admission?: YesPlan: Primary travel concern appears to be baclofen (3) Acute respiratory failure Qualifiers: Respiratory failure complication: hypoxia and hypercapnia Qualified Code(s): J96.01 - Acute respiratory failure with hypoxia Is this a current diagnosis for this admission?: YesPlan: rr,FIO2,MIn vent airway pressures suggest safe extubation; Current vital signs are stable; No tachycardia, extubate (4) Aspiration pneumonia due to inhalation of vomitus Is this a current diagnosis for this admission?: YesPlan: Stable at this time (5) Metabolic acidosis due to ingestion of drugs or chemicals Is this a current diagnosis for this admission?: YesPlan: Improved (6) Morbid obesity with BMI of 45.0-49.9, adult Is this a current diagnosis for this admission?: Yes (7) Obstructive sleep apnea Is this a current diagnosis for this admission?: Yes (8) Polypharmacy Is this a current diagnosis for this admission?: Yes - Time Critical Time spent with patient: 35 or more minutes
[2016-09-16] MEDS: PROPOFOL 100 ML IV PRN ×7 (01:44→23:06)
[2016-09-16] MEDS: HYDROMORPHONE HCL INJ/PF 2 MG/ML AMPULE IV PRN (01:57)
[2016-09-16 04:40] LABS: ABSOLUTE LYMPHOCYTES (AUTO) 0.9 10^3/uL (0.5-4.7); ABSOLUTE MONOCYTES (AUTO) 0.6 10^3/uL (0.1-1.4); ABSOLUTE NEUT (AUTO) 5.2 10^3/uL (1.7-8.2); BASOPHILS % (AUTO) 0.2 % (0-2); EOSINOPHILS % (AUTO) 0.2 % (0-6); HEMATOCRIT 28.4 % (36.0-47.0); HEMOGLOBIN 9.3 g/dL (12.0-15.5); HGB HCT DIFFERENCE -0.5; LYMPHOCYTES % (AUTO) 13.1 % (13-45); MEAN CORPUSCULAR HEMOGLOBIN 26.5 pg (27.0-33.4); MEAN CORPUSCULAR HGB CONC 32.8 g/dL (32.0-36.0); MEAN CORPUSCULAR VOLUME 81 fl (80-97); RED BLOOD COUNT 3.51 10^6/uL (3.72-5.28); RED CELL DISTRIBUTION WIDTH 18.4 % (11.5-14.0); SEGMENTED NEUTROPHILS % (AUTO) 77.5 % (42-78); WHITE BLOOD COUNT 6.7 10^3/uL (4.0-10.5)
[2016-09-16 04:52] LABS: ANION GAP 7 (5-19); BLOOD UREA NITROGEN 8 mg/dL (7-20); CALCIUM 8.7 mg/dL (8.4-10.2); CARBON DIOXIDE 28 mmol/L (22-30); CHLORIDE 108 mmol/L (98-107); CREATININE RESULT 0.37 mg/dL (0.52-1.25); GLUCOSE 116 mg/dL (75-110); POTASSIUM 3.8 mmol/L (3.6-5.0); SODIUM 142.6 mmol/L (137-145)
[2016-09-16] MEDS: DEXAMETHASONE SOD PHOSPHATE INJ 4 MG/1 ML VIAL IV SCH ×3 (05:06→23:00)
[2016-09-16] MEDS: POTASSI CL 20 MEQ/D5-1/2NS 1L 1,000 ML IV PRN ×2 (06:31→17:25)
[2016-09-16] MEDS: ENOXAPARIN SODIUM INJ 40 MG/0.4 ML DISP.SYRIN SUBCUT SCH (08:04)
[2016-09-16] MEDS: NICOTINE 21 MG/24 HR PATCH.TD24 TD SCH (09:18)
[2016-09-16] MEDS: CEFEPIME HCL 2 GM in DEXTROSE 5%-WATER 50 ML IV SCH ×2 (09:18→23:02)
[2016-09-16] MEDS: FAMOTIDINE INJ/PF 20 MG/2 ML SDV IV SCH ×2 (09:18→23:00)
[2016-09-16 09:33] LABS: FOLATE 2.98 ng/mL (>2.76)
[2016-09-16] MEDS: BACLOFEN 10 MG TABLET NG SCH ×2 (09:41→17:16)
--- NOTE | 2016-09-16 10:11 | PDOC PROGRESS REPORT ---
Subjective Subjective:: reintubated--.tachardia and tachypnia Physical Exam Vital Signs: Temp Pulse Resp BP Pulse Ox 97.3 F 79 14 110/60 97 09/16/16 08:00 09/16/16 08:00 09/16/16 08:00 09/16/16 08:00 09/16/16 08:00 Intake & Output 09/15/16 09/16/16 09/17/16 06:59 06:59 06:59 Intake Total 3911 Output Total 4090 45 Balance -179 -45 Weight 124.9 kg General appearance: PRESENT: no acute distress, disheveled, obese Head exam: PRESENT: atraumatic, normocephalic Eye exam: PRESENT: conjunctiva pale Mouth exam: PRESENT: moist, neck supple, other - ET tube Respiratory exam: PRESENT: decreased breath sounds, prolonged expiratory phas, symmetrical, unlabored Cardiovascular exam: PRESENT: RRR, +S1, +S2 Pulses: PRESENT: normal radial pulses GI/Abdominal exam: PRESENT: normal bowel sounds, soft. ABSENT: distended, guarding, mass, organolmegaly, rebound, tenderness Rectal exam: PRESENT: deferred Gentrourinary exam: PRESENT: indwelling catheter Musculoskeletal exam: PRESENT: normal inspection Skin exam: PRESENT: dry, warm Results Laboratory Results: 09/16/16 04:25 09/16/16 04:25 09/15/16 09/15/16 09/16/16 12:10 17:10 04:25 WBC 6.7 RBC 3.51 L Hgb 9.3 L Hct 28.4 L MCV 81 MCH 26.5 L MCHC 32.8 RDW 18.4 H Plt Count 193 Seg Neutrophils % 77.5 Lymphocytes % 13.1 Monocytes % 9.0 Eosinophils % 0.2 Basophils % 0.2 Absolute Neutrophils 5.2 Absolute Lymphocytes 0.9 Absolute Monocytes 0.6 Absolute Eosinophils 0.0 Absolute Basophils 0.0 Retic Count (auto) Absolute Retic Carbonic Acid 1.13 1.18 HCO3/H2CO3 Ratio 23:1 21:1 ABG pH 7.46 H 7.43 ABG pCO2 37.7 39.1 ABG pO2 157.8 H 91.3 ABG HCO3 26.3 H 25.3 ABG O2 Saturation 99.1 H 97.2 ABG Base Excess 2.5 0.9 FiO2 30% 40% Sodium Potassium Chloride Carbon Dioxide Anion Gap BUN Creatinine Est GFR ( Amer) Est GFR (Non-Af Amer) Glucose Calcium Iron TIBC % Saturation Ferritin Vitamin B12 Folate 09/16/16 09/16/16 09/16/16 04:25 04:25 04:25 WBC RBC Hgb Hct MCV MCH MCHC RDW Plt Count Seg Neutrophils % Lymphocytes % Monocytes % Eosinophils % Basophils % Absolute Neutrophils Absolute Lymphocytes Absolute Monocytes Absolute Eosinophils Absolute Basophils Retic Count (auto) 1.45 Absolute Retic 0.052 Carbonic Acid HCO3/H2CO3 Ratio ABG pH ABG pCO2 ABG pO2 ABG HCO3 ABG O2 Saturation ABG Base Excess FiO2 Sodium 142.6 Potassium 3.8 Chloride 108 H Carbon Dioxide 28 Anion Gap 7 BUN 8 Creatinine 0.37 L Est GFR ( Amer) > 60 Est GFR (Non-Af Amer) > 60 Glucose 116 H Calcium 8.7 Iron 12.7 L TIBC 290 % Saturation 4 Ferritin 25.90 Vitamin B12 295.0 Folate 2.98 09/13/16 20:30 Tracheal Aspirate Gram Stain - Final 09/13/16 20:30 Tracheal Aspirate Sputum Culture - Final C.albicans/C.dubliniensis Normal Nydia 09/13/16 17:52 Catheterized Urine Urine Culture - Final NO GROWTH 2 DAYS Impressions: Abdomen/Pelvis CT 09/13/16 09:50 IMPRESSION: NO SIGNIFICANT OR ACUTE FINDING IN THE ABDOMEN OR PELVIS ON CT SCAN WITH IV CONTRAST. Chest/Abdomen CTA 09/13/16 09:50 IMPRESSION: No CT angio evidence of acute pulmonary emboli or thoracic aortic dissection. Patchy consolidation in the left lower lobe atelectasis versus pneumonia. Bandlike atelectasis right lung base. Head CT 09/13/16 09:50 IMPRESSION: NORMAL BRAIN CT WITHOUT CONTRAST. Chest X-Ray 09/15/16 06:00 IMPRESSION: 1. Support tubes and lines as above. 2. Interval improvement in the left retrocardiac density and perihilar prominence in comparison the previous day's study. Assessment & Plan - Diagnosis (1) Aspiration pneumonia Qualifiers: Aspiration pneumonia type: unspecified Laterality: unspecified laterality Lung location: unspecified part of lung Qualified Code(s): J69.0 - Pneumonitis due to inhalation of food and vomit Is this a current diagnosis for this admission?: YesPlan: c albicans no add organisms (2) Polysubstance overdose Qualifiers: Encounter type: initial encounter Injury intent: undetermined intent Qualified Code(s): T50.904A - Poisoning by unspecified drugs, medicaments and biological substances, undetermined, initial encounter Is this a current diagnosis for this admission?: Yes (3) Acute respiratory failure Qualifiers: Respiratory failure complication: hypoxia and hypercapnia Qualified Code(s): J96.01 - Acute respiratory failure with hypoxia Is this a current diagnosis for this admission?: YesPlan: stridor rx with decadron (4) Aspiration pneumonia due to inhalation of vomitus Is this a current diagnosis for this admission?: YesPlan: Stable at this time (5) Metabolic acidosis due to ingestion of drugs or chemicals Is this a current diagnosis for this admission?: YesPlan: Improved (6) Morbid obesity with BMI of 45.0-49.9, adult Is this a current diagnosis for this admission?: Yes (7) Obstructive sleep apnea Is this a current diagnosis for this admission?: Yes (8) Polypharmacy Is this a current diagnosis for this admission?: Yes - Time Critical Time spent with patient: 35 or more minutes - 45 min
[2016-09-16] MEDS: MIDAZOLAM HCL 100 ML IV PRN ×2 (10:52→23:06)
[2016-09-16] MEDS: LEVOFLOXACIN 750 MG/D5W RTU 750 MG/150 ML RTUPB IV SCH (15:17)
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
[2016-09-17] MEDS: POTASSI CL 20 MEQ/D5-1/2NS 1L 1,000 ML IV PRN ×3 (01:23→20:56)
[2016-09-17] MEDS: PROPOFOL 100 ML IV PRN ×7 (01:23→22:00)
[2016-09-17] MEDS: DEXAMETHASONE SOD PHOSPHATE INJ 4 MG/1 ML VIAL IV SCH ×3 (05:17→22:00)
[2016-09-17 05:23] LABS: ARTERIAL BLOOD BASE EXCESS 3.3 mmol/L; ARTERIAL BLOOD O2 SATURATION 96.6 % (94-98)
[2016-09-17 05:24] LABS: ABSOLUTE LYMPHOCYTES (AUTO) 0.7 10^3/uL (0.5-4.7); ABSOLUTE MONOCYTES (AUTO) 0.4 10^3/uL (0.1-1.4); ABSOLUTE NEUT (AUTO) 5.8 10^3/uL (1.7-8.2); BASOPHILS % (AUTO) 0.2 % (0-2); EOSINOPHILS % (AUTO) 0.1 % (0-6); HEMATOCRIT 29.9 % (36.0-47.0); HEMOGLOBIN 9.8 g/dL (12.0-15.5); HGB HCT DIFFERENCE -0.5; LYMPHOCYTES % (AUTO) 10.4 % (13-45); MEAN CORPUSCULAR HEMOGLOBIN 26.1 pg (27.0-33.4); MEAN CORPUSCULAR HGB CONC 32.6 g/dL (32.0-36.0); MEAN CORPUSCULAR VOLUME 80 fl (80-97); MONOCYTES % (AUTO) 6.3 % (3-13); RED BLOOD COUNT 3.74 10^6/uL (3.72-5.28); RED CELL DISTRIBUTION WIDTH 18.6 % (11.5-14.0)
[2016-09-17] MEDS: MIDAZOLAM HCL 100 ML IV PRN ×3 (05:33→22:01)
[2016-09-17 05:49] LABS: ANION GAP 9 (5-19); BLOOD UREA NITROGEN 8 mg/dL (7-20); CARBON DIOXIDE 27 mmol/L (22-30); CHLORIDE 107 mmol/L (98-107); CREATININE RESULT 0.43 mg/dL (0.52-1.25); GLUCOSE 130 mg/dL (75-110); POTASSIUM 4.2 mmol/L (3.6-5.0); SODIUM 142.8 mmol/L (137-145)
[2016-09-17] MEDS: HYDROMORPHONE HCL INJ/PF 2 MG/ML AMPULE IV PRN ×2 (08:39→12:42)
[2016-09-17] MEDS: ENOXAPARIN SODIUM INJ 40 MG/0.4 ML DISP.SYRIN SUBCUT SCH (08:40)
[2016-09-17] MEDS: BACLOFEN 10 MG TABLET NG SCH ×2 (09:38→17:04)
[2016-09-17] MEDS: IBUPROFEN 400 MG TABLET PO PRN (09:39)
[2016-09-17] MEDS: CEFEPIME HCL 2 GM in DEXTROSE 5%-WATER 50 ML IV SCH ×2 (09:42→22:00)
[2016-09-17] MEDS: FAMOTIDINE INJ/PF 20 MG/2 ML SDV IV SCH ×2 (09:42→21:59)
[2016-09-17] MEDS: FERROUS SULFATE LIQUID 300 MG/5 ML UDC NG SCH (09:42)
[2016-09-17] MEDS: NICOTINE 21 MG/24 HR PATCH.TD24 TD SCH (09:43)
--- NOTE | 2016-09-17 13:49 | PDOC PROGRESS REPORT ---
Subjective Progress Note for:: 09/17/16 Subjective:: intubated--sedated Physical Exam Vital Signs: Temp Pulse Resp BP Pulse Ox 98.2 F 112 H 17 118/68 97 09/17/16 06:00 09/16/16 20:00 09/17/16 06:35 09/17/16 06:35 09/17/16 06:35 Intake & Output 09/16/16 09/17/16 09/18/16 06:59 06:59 06:59 Intake Total 3911 4802 Output Total 4090 4700 Balance -179 102 Weight 124.9 kg 125.1 kg General appearance: PRESENT: no acute distress, disheveled, obese Head exam: PRESENT: atraumatic, normocephalic Eye exam: PRESENT: conjunctiva pale Mouth exam: PRESENT: neck supple, other - ET tube in place Neck exam: ABSENT: carotid bruit, JVD, lymphadenopathy, thyromegaly Respiratory exam: PRESENT: decreased breath sounds, prolonged expiratory phas, rhonchi, unlabored Cardiovascular exam: PRESENT: RRR, +S1, +S2 Pulses: PRESENT: normal radial pulses GI/Abdominal exam: PRESENT: normal bowel sounds, soft. ABSENT: distended, guarding, mass, organolmegaly, rebound, tenderness Rectal exam: PRESENT: deferred Gentrourinary exam: PRESENT: indwelling catheter Musculoskeletal exam: PRESENT: normal inspection Skin exam: PRESENT: dry, warm Results Laboratory Results: 09/17/16 05:05 09/17/16 05:05 09/16/16 09/17/16 09/17/16 04:25 05:05 05:05 WBC RBC Hgb Hct MCV MCH MCHC RDW Plt Count Seg Neutrophils % Lymphocytes % Monocytes % Eosinophils % Basophils % Absolute Neutrophils Absolute Lymphocytes Absolute Monocytes Absolute Eosinophils Absolute Basophils Carbonic Acid 1.13 HCO3/H2CO3 Ratio 23:1 ABG pH 7.47 H ABG pCO2 37.7 ABG pO2 81.0 ABG HCO3 27.0 H ABG O2 Saturation 96.6 ABG Base Excess 3.3 FiO2 21% Sodium 142.8 Potassium 4.2 Chloride 107 Carbon Dioxide 27 Anion Gap 9 BUN 8 Creatinine 0.43 L Est GFR ( Amer) > 60 Est GFR (Non-Af Amer) > 60 Glucose 130 H Calcium 9.0 Iron 12.7 L TIBC 290 % Saturation 4 Ferritin 25.90 Vitamin B12 295.0 Folate 2.98 09/17/16 05:05 WBC 7.0 RBC 3.74 Hgb 9.8 L Hct 29.9 L MCV 80 MCH 26.1 L MCHC 32.6 RDW 18.6 H Plt Count 221 Seg Neutrophils % 83.0 H Lymphocytes % 10.4 L Monocytes % 6.3 Eosinophils % 0.1 Basophils % 0.2 Absolute Neutrophils 5.8 Absolute Lymphocytes 0.7 Absolute Monocytes 0.4 Absolute Eosinophils 0.0 Absolute Basophils 0.0 Carbonic Acid HCO3/H2CO3 Ratio ABG pH ABG pCO2 ABG pO2 ABG HCO3 ABG O2 Saturation ABG Base Excess FiO2 Sodium Potassium Chloride Carbon Dioxide Anion Gap BUN Creatinine Est GFR ( Amer) Est GFR (Non-Af Amer) Glucose Calcium Iron TIBC % Saturation Ferritin Vitamin B12 Folate 09/13/16 20:30 Tracheal Aspirate Gram Stain - Final 09/13/16 20:30 Tracheal Aspirate Sputum Culture - Final C.albicans/C.dubliniensis Normal Nydia Impressions: Abdomen/Pelvis CT 09/13/16 09:50 IMPRESSION: NO SIGNIFICANT OR ACUTE FINDING IN THE ABDOMEN OR PELVIS ON CT SCAN WITH IV CONTRAST. Chest/Abdomen CTA 09/13/16 09:50 IMPRESSION: No CT angio evidence of acute pulmonary emboli or thoracic aortic dissection. Patchy consolidation in the left lower lobe atelectasis versus pneumonia. Bandlike atelectasis right lung base. Head CT 09/13/16 09:50 IMPRESSION: NORMAL BRAIN CT WITHOUT CONTRAST. Assessment & Plan - Diagnosis (1) Aspiration pneumonia Qualifiers: Aspiration pneumonia type: unspecified Laterality: unspecified laterality Lung location: unspecified part of lung Qualified Code(s): J69.0 - Pneumonitis due to inhalation of food and vomit Is this a current diagnosis for this admission?: YesPlan: c albicans no add organisms (2) Polysubstance overdose Qualifiers: Encounter type: initial encounter Injury intent: undetermined intent Qualified Code(s): T50.904A - Poisoning by unspecified drugs, medicaments and biological substances, undetermined, initial encounter Is this a current diagnosis for this admission?: YesPlan: Primary travel concern appears to be baclofen (3) Acute respiratory failure Qualifiers: Respiratory failure complication: hypoxia and hypercapnia Qualified Code(s): J96.01 - Acute respiratory failure with hypoxia Is this a current diagnosis for this admission?: YesPlan: stridor rx with decadron (4) Aspiration pneumonia due to inhalation of vomitus Is this a current diagnosis for this admission?: No (5) Metabolic acidosis due to ingestion of drugs or chemicals Is this a current diagnosis for this admission?: No (6) Morbid obesity with BMI of 45.0-49.9, adult Is this a current diagnosis for this admission?: YesPlan: Unchanged (7) Obstructive sleep apnea Is this a current diagnosis for this admission?: Yes (8) Polypharmacy Is this a current diagnosis for this admission?: YesPlan: Supportive care - Time Critical Time spent with patient: 35 or more minutes - 45 minutes
[2016-09-17] MEDS: LEVOFLOXACIN 750 MG/D5W RTU 750 MG/150 ML RTUPB IV SCH (14:03)
--- NOTE | 2016-09-17 22:59 | PDOC PROGRESS REPORT ---
Subjective Progress Note for:: 09/17/16 Subjective:: Patient seen in the ICU earlier today on rounds. No acute events overnight. Unable to obtain review of systems secondary to patient's intubated and sedated status. Physical Exam Vital Signs: Temp Pulse Resp BP Pulse Ox 99.3 F 92 17 109/62 96 09/17/16 16:00 09/17/16 20:00 09/17/16 19:17 09/17/16 20:35 09/17/16 21:15 Intake & Output 09/16/16 09/17/16 09/18/16 06:59 06:59 06:59 Intake Total 3911 4802 2549 Output Total 4090 4700 2110 Balance -179 102 439 Weight 124.9 kg 125.1 kg Exam: General: Patient is intubated, sedated, mechanically ventilated HEENT: AT/NC, PERRL, oropharynx is moist, pink, no scleral icterus, no conjunctival injection Neck: No JVD, trachea midline Chest: Clear to auscultation bilaterally, no wheezes rhonchi or rales CV: Regular rate and rhythm, normal S1 and S2, no murmur, rub, or gallop Abdomen: Soft, nontender to palpation, nondistended, active bowel sounds Extremities: No cyanosis, clubbing or edema Results Laboratory Results: 09/17/16 05:05 09/17/16 05:05 09/16/16 09/17/16 09/17/16 04:25 05:05 05:05 WBC RBC Hgb Hct MCV MCH MCHC RDW Plt Count Seg Neutrophils % Lymphocytes % Monocytes % Eosinophils % Basophils % Absolute Neutrophils Absolute Lymphocytes Absolute Monocytes Absolute Eosinophils Absolute Basophils Carbonic Acid 1.13 HCO3/H2CO3 Ratio 23:1 ABG pH 7.47 H ABG pCO2 37.7 ABG pO2 81.0 ABG HCO3 27.0 H ABG O2 Saturation 96.6 ABG Base Excess 3.3 FiO2 21% Sodium 142.8 Potassium 4.2 Chloride 107 Carbon Dioxide 27 Anion Gap 9 BUN 8 Creatinine 0.43 L Est GFR ( Amer) > 60 Est GFR (Non-Af Amer) > 60 Glucose 130 H Calcium 9.0 Transferrin 216 09/17/16 05:05 WBC 7.0 RBC 3.74 Hgb 9.8 L Hct 29.9 L MCV 80 MCH 26.1 L MCHC 32.6 RDW 18.6 H Plt Count 221 Seg Neutrophils % 83.0 H Lymphocytes % 10.4 L Monocytes % 6.3 Eosinophils % 0.1 Basophils % 0.2 Absolute Neutrophils 5.8 Absolute Lymphocytes 0.7 Absolute Monocytes 0.4 Absolute Eosinophils 0.0 Absolute Basophils 0.0 Carbonic Acid HCO3/H2CO3 Ratio ABG pH ABG pCO2 ABG pO2 ABG HCO3 ABG O2 Saturation ABG Base Excess FiO2 Sodium Potassium Chloride Carbon Dioxide Anion Gap BUN Creatinine Est GFR ( Amer) Est GFR (Non-Af Amer) Glucose Calcium Transferrin Impressions: Abdomen/Pelvis CT 09/13/16 09:50 IMPRESSION: NO SIGNIFICANT OR ACUTE FINDING IN THE ABDOMEN OR PELVIS ON CT SCAN WITH IV CONTRAST. Chest/Abdomen CTA 09/13/16 09:50 IMPRESSION: No CT angio evidence of acute pulmonary emboli or thoracic aortic dissection. Patchy consolidation in the left lower lobe atelectasis versus pneumonia. Bandlike atelectasis right lung base. Head CT 09/13/16 09:50 IMPRESSION: NORMAL BRAIN CT WITHOUT CONTRAST. Chest X-Ray 09/17/16 06:00 IMPRESSION: Tubes and lines in good positioning. Unchanged bandlike atelectasis in the right and left mid lung Trace residual left perihilar airspace disease Assessment & Plan - Diagnosis (1) Acute respiratory failure Qualifiers: Respiratory failure complication: hypoxia and hypercapnia Qualified Code(s): J96.01 - Acute respiratory failure with hypoxia Is this a current diagnosis for this admission?: YesPlan: Currently, patient failed extubation on Friday due to reported airway swelling and required reintubation. Defer to pulmonary medicine for management of the ventilator. (2) Baclofen overdose Qualifiers: Encounter type: subsequent encounter Injury intent: intentional self- harm Qualified Code(s): T42.8X2D - Poisoning by antiparkinsonism drugs and other central muscle-tone depressants, intentional self-harm, subsequent encounter Is this a current diagnosis for this admission?: YesPlan: Patient will remain IVC. Plan to extubate tomorrow. Continue low-dose baclofen department withdrawal. (3) Acute encephalopathy Is this a current diagnosis for this admission?: Yes (4) Aspiration pneumonia Qualifiers: Aspiration pneumonia type: unspecified Laterality: left Lung location: lower lobe of lung Qualified Code(s): J69.0 - Pneumonitis due to inhalation of food and vomit Is this a current diagnosis for this admission?: YesPlan: Patient currently on Levaquin for this. Patient was recently hospitalized for very similar episode and at that time was growing out Staphylococcus aureus her sputum. Current sputum culture is negative. (5) Chronic pain Qualifiers: Chronic pain type: other chronic pain Qualified Code(s): G89.29 - Other chronic pain Is this a current diagnosis for this admission?: Yes (6) Tobacco dependency Is this a current diagnosis for this admission?: Yes (7) Anemia Qualifiers: Anemia type: iron deficiency Iron deficiency anemia type: inadequate dietary iron intake Qualified Code(s): D50.8 - Other iron deficiency anemias Is this a current diagnosis for this admission?: YesPlan: Patient with Adriana-en-Y gastric bypass. Will place on oral iron supplementation. (8) DVT prophylaxis Is this a current diagnosis for this admission?: Yes (9) GI prophylaxis Is this a current diagnosis for this admission?: Yes (10) Obstructive sleep apnea Is this a current diagnosis for this admission?: Yes (11) Status post gastric bypass for obesity Is this a current diagnosis for this admission?: Yes (12) Bipolar affective disorder Qualifiers: Active/Remission status: currently active Current bipolar episode type : mixed Current episode severity: severe Psychotic features: without psychotic features Qualified Code(s): F31.63 - Bipolar disorder, current episode mixed, severe, without psychotic features Is this a current diagnosis for this admission?: YesPlan: We'll resume home medications. - Time Critical Time spent with patient: 25-34 minutes Medications reviewed and adjusted accordingly: Yes
[2016-09-18] MEDS: PROPOFOL 100 ML IV PRN ×2 (03:11→06:21)
[2016-09-18] MEDS: DEXAMETHASONE SOD PHOSPHATE INJ 4 MG/1 ML VIAL IV SCH ×2 (06:04→14:54)
[2016-09-18] MEDS: MIDAZOLAM HCL 100 ML IV PRN (06:04)
[2016-09-18 06:08] LABS: ABSOLUTE LYMPHOCYTES (AUTO) 0.9 10^3/uL (0.5-4.7); ABSOLUTE MONOCYTES (AUTO) 0.4 10^3/uL (0.1-1.4); ABSOLUTE NEUT (AUTO) 4.7 10^3/uL (1.7-8.2); BASOPHILS % (AUTO) 0.3 % (0-2); EOSINOPHILS % (AUTO) 0.1 % (0-6); HEMATOCRIT 30.3 % (36.0-47.0); HEMOGLOBIN 9.9 g/dL (12.0-15.5); HGB HCT DIFFERENCE -0.6; LYMPHOCYTES % (AUTO) 15.2 % (13-45); MEAN CORPUSCULAR HEMOGLOBIN 26.2 pg (27.0-33.4); MEAN CORPUSCULAR HGB CONC 32.7 g/dL (32.0-36.0); MEAN CORPUSCULAR VOLUME 80 fl (80-97); MONOCYTES % (AUTO) 6.1 % (3-13); RED BLOOD COUNT 3.79 10^6/uL (3.72-5.28); RED CELL DISTRIBUTION WIDTH 18.3 % (11.5-14.0); SEGMENTED NEUTROPHILS % (AUTO) 78.3 % (42-78)
[2016-09-18 06:12] LABS: ARTERIAL BLOOD BASE EXCESS 3.5 mmol/L; ARTERIAL BLOOD O2 SATURATION 93.5 % (94-98)
[2016-09-18] MEDS: POTASSI CL 20 MEQ/D5-1/2NS 1L 1,000 ML IV PRN ×3 (06:22→22:47)
[2016-09-18 06:25] LABS: ALANINE AMINOTRANSFERASE 21 U/L (9-52); ALBUMIN 2.7 g/dL (3.5-5.0); ALKALINE PHOSPHATASE 68 U/L (38-126); ANION GAP 7 (5-19); ASPARTATE AMINO TRANSFERASE 17 U/L (14-36); BILIRUBIN,TOTAL 0.3 mg/dL (0.2-1.3); BLOOD UREA NITROGEN 11 mg/dL (7-20); CALCIUM 8.8 mg/dL (8.4-10.2); CARBON DIOXIDE 27 mmol/L (22-30); CHLORIDE 107 mmol/L (98-107); CREATININE RESULT 0.49 mg/dL (0.52-1.25); GLUCOSE 124 mg/dL (75-110); POTASSIUM 4.3 mmol/L (3.6-5.0); SODIUM 140.5 mmol/L (137-145); TOTAL PROTEIN 5.2 g/dL (6.3-8.2)
[2016-09-18] MEDS: HYDROMORPHONE HCL INJ/PF 2 MG/ML AMPULE IV PRN ×2 (07:55→14:53)
[2016-09-18] MEDS: ENOXAPARIN SODIUM INJ 40 MG/0.4 ML DISP.SYRIN SUBCUT SCH (07:56)
[2016-09-18] MEDS: BACLOFEN 10 MG TABLET NG SCH ×2 (09:21→18:05)
[2016-09-18] MEDS: NICOTINE 21 MG/24 HR PATCH.TD24 TD SCH (09:23)
[2016-09-18] MEDS: FAMOTIDINE INJ/PF 20 MG/2 ML SDV IV SCH ×2 (09:23→22:46)
[2016-09-18] MEDS: CEFEPIME HCL 2 GM in DEXTROSE 5%-WATER 50 ML IV SCH ×2 (09:24→22:45)
[2016-09-18] MEDS: FERROUS SULFATE LIQUID 300 MG/5 ML UDC NG SCH (09:24)
--- NOTE | 2016-09-18 14:18 | PDOC PROGRESS REPORT ---
Subjective Progress Note for:: 09/18/16 Subjective:: intubated--sedated but responsive to stimuli Physical Exam Vital Signs: Temp Pulse Resp BP Pulse Ox 98.1 F 82 14 122/78 95 09/18/16 08:00 09/18/16 08:00 09/18/16 08:00 09/18/16 08:00 09/18/16 08:00 Intake & Output 09/17/16 09/18/16 09/19/16 06:59 06:59 06:59 Intake Total 4802 5493 Output Total 4700 4260 275 Balance 102 1233 -275 Weight 125.1 kg 122.6 kg General appearance: PRESENT: no acute distress, disheveled, obese Head exam: PRESENT: atraumatic, normocephalic Eye exam: PRESENT: conjunctiva pale Mouth exam: PRESENT: moist, neck supple, tongue midline, other - ET tube in place Neck exam: ABSENT: carotid bruit, JVD, lymphadenopathy, thyromegaly Respiratory exam: PRESENT: decreased breath sounds, prolonged expiratory phas, rhonchi, symmetrical, unlabored Cardiovascular exam: PRESENT: RRR, +S1, +S2 Pulses: PRESENT: normal radial pulses GI/Abdominal exam: PRESENT: normal bowel sounds, soft. ABSENT: distended, guarding, mass, organolmegaly, rebound, tenderness Rectal exam: PRESENT: deferred Gentrourinary exam: PRESENT: indwelling catheter Musculoskeletal exam: PRESENT: normal inspection Neurological exam: PRESENT: awake, other - Lethargic Skin exam: PRESENT: dry, warm Results Laboratory Results: 09/18/16 05:45 09/18/16 05:45 09/16/16 09/18/16 09/18/16 04:25 05:45 05:45 WBC 6.0 RBC 3.79 Hgb 9.9 L Hct 30.3 L MCV 80 MCH 26.2 L MCHC 32.7 RDW 18.3 H Plt Count 215 Seg Neutrophils % 78.3 H Lymphocytes % 15.2 Monocytes % 6.1 Eosinophils % 0.1 Basophils % 0.3 Absolute Neutrophils 4.7 Absolute Lymphocytes 0.9 Absolute Monocytes 0.4 Absolute Eosinophils 0.0 Absolute Basophils 0.0 Carbonic Acid HCO3/H2CO3 Ratio ABG pH ABG pCO2 ABG pO2 ABG HCO3 ABG O2 Saturation ABG Base Excess FiO2 Sodium 140.5 Potassium 4.3 Chloride 107 Carbon Dioxide 27 Anion Gap 7 BUN 11 Creatinine 0.49 L Est GFR ( Amer) > 60 Est GFR (Non-Af Amer) > 60 Glucose 124 H Calcium 8.8 Magnesium 2.0 Transferrin 216 Total Bilirubin 0.3 AST 17 ALT 21 Alkaline Phosphatase 68 Total Protein 5.2 L Albumin 2.7 L 09/18/16 05:45 WBC RBC Hgb Hct MCV MCH MCHC RDW Plt Count Seg Neutrophils % Lymphocytes % Monocytes % Eosinophils % Basophils % Absolute Neutrophils Absolute Lymphocytes Absolute Monocytes Absolute Eosinophils Absolute Basophils Carbonic Acid 1.17 HCO3/H2CO3 Ratio 23:1 ABG pH 7.47 H ABG pCO2 38.9 ABG pO2 63.4 L ABG HCO3 27.4 H ABG O2 Saturation 93.5 L ABG Base Excess 3.5 FiO2 21% Sodium Potassium Chloride Carbon Dioxide Anion Gap BUN Creatinine Est GFR ( Amer) Est GFR (Non-Af Amer) Glucose Calcium Magnesium Transferrin Total Bilirubin AST ALT Alkaline Phosphatase Total Protein Albumin Impressions: Abdomen/Pelvis CT 09/13/16 09:50 IMPRESSION: NO SIGNIFICANT OR ACUTE FINDING IN THE ABDOMEN OR PELVIS ON CT SCAN WITH IV CONTRAST. Chest/Abdomen CTA 09/13/16 09:50 IMPRESSION: No CT angio evidence of acute pulmonary emboli or thoracic aortic dissection. Patchy consolidation in the left lower lobe atelectasis versus pneumonia. Bandlike atelectasis right lung base. Head CT 09/13/16 09:50 IMPRESSION: NORMAL BRAIN CT WITHOUT CONTRAST. Chest X-Ray 09/17/16 06:00 IMPRESSION: Tubes and lines in good positioning. Unchanged bandlike atelectasis in the right and left mid lung Trace residual left perihilar airspace disease Assessment & Plan - Diagnosis (1) Aspiration pneumonia Qualifiers: Aspiration pneumonia type: unspecified Laterality: left Lung location: lower lobe of lung Qualified Code(s): J69.0 - Pneumonitis due to inhalation of food and vomit Is this a current diagnosis for this admission?: YesPlan: c albicans no add organisms (2) Polysubstance overdose Qualifiers: Encounter type: initial encounter Injury intent: undetermined intent Qualified Code(s): T50.904A - Poisoning by unspecified drugs, medicaments and biological substances, undetermined, initial encounter Is this a current diagnosis for this admission?: Yes (3) Acute respiratory failure Qualifiers: Respiratory failure complication: hypoxia and hypercapnia Qualified Code(s): J96.01 - Acute respiratory failure with hypoxia Is this a current diagnosis for this admission?: YesPlan: Minute volume, respiratory rate, FiO2, airway pressures all suggest a successful extubation will proceed with extubation (4) Aspiration pneumonia due to inhalation of vomitus Is this a current diagnosis for this admission?: No (5) Metabolic acidosis due to ingestion of drugs or chemicals Is this a current diagnosis for this admission?: No (6) Morbid obesity with BMI of 45.0-49.9, adult Is this a current diagnosis for this admission?: Yes (7) Obstructive sleep apnea Is this a current diagnosis for this admission?: Yes (8) Polypharmacy Is this a current diagnosis for this admission?: Yes - Time Critical Time spent with patient: 35 or more minutes - 55 minutes extubation
[2016-09-18] MEDS: LORAZEPAM INJ 2 MG/1 ML VIAL IV PRN (14:53)
[2016-09-18] MEDS: LEVOFLOXACIN 750 MG/D5W RTU 750 MG/150 ML RTUPB IV SCH (14:53)
[2016-09-18] MEDS ORDERED: HALOPERIDOL LACTATE INJ 5 MG/1 ML VIAL IV PRN (17:53)
[2016-09-18] MEDS ORDERED: HALOPERIDOL LACTATE INJ 5 MG/1 ML VIAL ONE (17:55)
[2016-09-18] MEDS ORDERED: LORAZEPAM INJ 2 MG/1 ML VIAL IV ONE (18:08)
[2016-09-18] MEDS ORDERED: DIPHENHYDRAMINE HCL 50 MG/ML VIAL IV ONE (18:09)
[2016-09-18] MEDS ORDERED: DIPHENHYDRAMINE HCL 50 MG/ML VIAL ONE (18:10)
[2016-09-18] MEDS ORDERED: LORAZEPAM INJ 2 MG/1 ML VIAL ONE (18:10)
--- NOTE | 2016-09-18 19:40 | PDOC PROGRESS REPORT ---
Subjective Progress Note for:: 09/18/16 Subjective:: Unable to obtain review of systems secondary to intubated and sedated status Physical Exam Vital Signs: Temp Pulse Resp BP Pulse Ox 99.3 F 92 17 100/89 H 93 09/17/16 16:00 09/17/16 20:00 09/17/16 19:17 09/18/16 05:35 09/18/16 06:15 Intake & Output 09/17/16 09/18/16 09/19/16 06:59 06:59 06:59 Intake Total 4802 5493 Output Total 4700 4260 Balance 102 1233 Weight 125.1 kg 122.6 kg Exam: General: Patient is intubated, sedated, mechanically ventilated HEENT: AT/NC, PERRL, oropharynx is moist, pink, no scleral icterus, no conjunctival injection Neck: No JVD, trachea midline Chest: Clear to auscultation bilaterally, no wheezes rhonchi or rales CV: Regular rate and rhythm, normal S1 and S2, no murmur, rub, or gallop Abdomen: Soft, nontender to palpation, nondistended, active bowel sounds Extremities: No cyanosis, clubbing or edema Results Laboratory Results: 09/18/16 05:45 09/18/16 05:45 09/16/16 09/18/16 09/18/16 04:25 05:45 05:45 WBC 6.0 RBC 3.79 Hgb 9.9 L Hct 30.3 L MCV 80 MCH 26.2 L MCHC 32.7 RDW 18.3 H Plt Count 215 Seg Neutrophils % 78.3 H Lymphocytes % 15.2 Monocytes % 6.1 Eosinophils % 0.1 Basophils % 0.3 Absolute Neutrophils 4.7 Absolute Lymphocytes 0.9 Absolute Monocytes 0.4 Absolute Eosinophils 0.0 Absolute Basophils 0.0 Carbonic Acid HCO3/H2CO3 Ratio ABG pH ABG pCO2 ABG pO2 ABG HCO3 ABG O2 Saturation ABG Base Excess FiO2 Sodium 140.5 Potassium 4.3 Chloride 107 Carbon Dioxide 27 Anion Gap 7 BUN 11 Creatinine 0.49 L Est GFR ( Amer) > 60 Est GFR (Non-Af Amer) > 60 Glucose 124 H Calcium 8.8 Magnesium 2.0 Transferrin 216 Total Bilirubin 0.3 AST 17 ALT 21 Alkaline Phosphatase 68 Total Protein 5.2 L Albumin 2.7 L 09/18/16 05:45 WBC RBC Hgb Hct MCV MCH MCHC RDW Plt Count Seg Neutrophils % Lymphocytes % Monocytes % Eosinophils % Basophils % Absolute Neutrophils Absolute Lymphocytes Absolute Monocytes Absolute Eosinophils Absolute Basophils Carbonic Acid 1.17 HCO3/H2CO3 Ratio 23:1 ABG pH 7.47 H ABG pCO2 38.9 ABG pO2 63.4 L ABG HCO3 27.4 H ABG O2 Saturation 93.5 L ABG Base Excess 3.5 FiO2 21% Sodium Potassium Chloride Carbon Dioxide Anion Gap BUN Creatinine Est GFR ( Amer) Est GFR (Non-Af Amer) Glucose Calcium Magnesium Transferrin Total Bilirubin AST ALT Alkaline Phosphatase Total Protein Albumin Impressions: Abdomen/Pelvis CT 09/13/16 09:50 IMPRESSION: NO SIGNIFICANT OR ACUTE FINDING IN THE ABDOMEN OR PELVIS ON CT SCAN WITH IV CONTRAST. Chest/Abdomen CTA 09/13/16 09:50 IMPRESSION: No CT angio evidence of acute pulmonary emboli or thoracic aortic dissection. Patchy consolidation in the left lower lobe atelectasis versus pneumonia. Bandlike atelectasis right lung base. Head CT 09/13/16 09:50 IMPRESSION: NORMAL BRAIN CT WITHOUT CONTRAST. Chest X-Ray 09/17/16 06:00 IMPRESSION: Tubes and lines in good positioning. Unchanged bandlike atelectasis in the right and left mid lung Trace residual left perihilar airspace disease Assessment & Plan - Diagnosis (1) Acute respiratory failure Qualifiers: Respiratory failure complication: hypoxia and hypercapnia Qualified Code(s): J96.01 - Acute respiratory failure with hypoxia Is this a current diagnosis for this admission?: YesPlan: Patient to be extubated today. Stop dexamethasone (2) Baclofen overdose Qualifiers: Encounter type: subsequent encounter Injury intent: intentional self- harm Qualified Code(s): T42.8X2D - Poisoning by antiparkinsonism drugs and other central muscle-tone depressants, intentional self-harm, subsequent encounter Is this a current diagnosis for this admission?: YesPlan: Patient will remain IVC. Plan to extubate tomorrow. Continue low-dose baclofen department withdrawal. (3) Acute encephalopathy Is this a current diagnosis for this admission?: Yes (4) Aspiration pneumonia Qualifiers: Aspiration pneumonia type: unspecified Laterality: left Lung location: lower lobe of lung Qualified Code(s): J69.0 - Pneumonitis due to inhalation of food and vomit Is this a current diagnosis for this admission?: YesPlan: Patient currently on Levaquin for this. Patient was recently hospitalized for very similar episode and at that time was growing out Staphylococcus aureus her sputum. Current sputum culture is negative. (5) Chronic pain Qualifiers: Chronic pain type: other chronic pain Qualified Code(s): G89.29 - Other chronic pain Is this a current diagnosis for this admission?: Yes (6) Tobacco dependency Is this a current diagnosis for this admission?: Yes (7) Anemia Qualifiers: Anemia type: iron deficiency Iron deficiency anemia type: inadequate dietary iron intake Qualified Code(s): D50.8 - Other iron deficiency anemias Is this a current diagnosis for this admission?: Yes (8) DVT prophylaxis Is this a current diagnosis for this admission?: Yes (9) GI prophylaxis Is this a current diagnosis for this admission?: Yes (10) Obstructive sleep apnea Is this a current diagnosis for this admission?: Yes (11) Status post gastric bypass for obesity Is this a current diagnosis for this admission?: Yes (12) Bipolar affective disorder Qualifiers: Active/Remission status: currently active Current bipolar episode type : mixed Current episode severity: severe Psychotic features: without psychotic features Qualified Code(s): F31.63 - Bipolar disorder, current episode mixed, severe, without psychotic features Is this a current diagnosis for this admission?: Yes - Time Time Spent with patient: 25-34 minutes Medications reviewed and adjusted accordingly: Yes Anticipated discharge: Other
[2016-09-19] MEDS: LORAZEPAM INJ 2 MG/1 ML VIAL IV PRN (00:32)
[2016-09-19] MEDS: NICOTINE 21 MG/24 HR PATCH.TD24 TD SCH (11:03)
[2016-09-19] MEDS: BACLOFEN 10 MG TABLET NG SCH (11:04)
[2016-09-19] MEDS: FAMOTIDINE INJ/PF 20 MG/2 ML SDV IV SCH (11:04)
[2016-09-19] MEDS: ENOXAPARIN SODIUM INJ 40 MG/0.4 ML DISP.SYRIN SUBCUT SCH (11:05)
[2016-09-19] MEDS: CEFEPIME HCL 2 GM in DEXTROSE 5%-WATER 50 ML IV SCH (11:11)
[2016-09-19] MEDS: ACETAMINOPHEN 325 MG TABLET NG PRN (11:25)
--- NOTE | 2016-09-19 11:43 | PDOC PROGRESS REPORT ---
Subjective Progress Note for:: 09/19/16 Subjective:: Stable doing well Physical Exam Vital Signs: Temp Pulse Resp BP Pulse Ox 98.6 F 107 H 12 120/73 95 09/19/16 08:00 09/19/16 10:00 09/19/16 10:00 09/19/16 10:00 09/19/16 10:15 Intake & Output 09/18/16 09/19/16 09/20/16 06:59 06:59 06:59 Intake Total 5493 3135 Output Total 4260 5135 400 Balance 1233 -2000 -400 Weight 122.6 kg 121.1 kg General appearance: PRESENT: no acute distress, disheveled, obese Head exam: PRESENT: atraumatic, normocephalic Eye exam: PRESENT: conjunctiva pale, EOMI Mouth exam: PRESENT: neck supple Neck exam: ABSENT: carotid bruit, JVD, lymphadenopathy, thyromegaly Respiratory exam: PRESENT: clear to auscultation geetha Cardiovascular exam: PRESENT: RRR, +S1, +S2 Pulses: PRESENT: normal radial pulses GI/Abdominal exam: PRESENT: normal bowel sounds, soft. ABSENT: distended, guarding, mass, organolmegaly, rebound, tenderness Rectal exam: PRESENT: deferred Gentrourinary exam: PRESENT: indwelling catheter Musculoskeletal exam: PRESENT: normal inspection Neurological exam: PRESENT: awake Psychiatric exam: PRESENT: flat affect Skin exam: PRESENT: dry, warm Results Laboratory Results: 09/18/16 05:45 09/18/16 05:45 09/17/16 09:12 Tracheal Aspirate Gram Stain - Final 09/17/16 09:12 Tracheal Aspirate Sputum Culture - Final C.albicans/C.dubliniensis Normal Nydia 09/13/16 17:47 Blood Blood Culture - Final NO GROWTH IN 5 DAYS 09/13/16 15:00 Blood Blood Culture - Final NO GROWTH IN 5 DAYS Impressions: Abdomen/Pelvis CT 09/13/16 09:50 IMPRESSION: NO SIGNIFICANT OR ACUTE FINDING IN THE ABDOMEN OR PELVIS ON CT SCAN WITH IV CONTRAST. Chest/Abdomen CTA 09/13/16 09:50 IMPRESSION: No CT angio evidence of acute pulmonary emboli or thoracic aortic dissection. Patchy consolidation in the left lower lobe atelectasis versus pneumonia. Bandlike atelectasis right lung base. Head CT 09/13/16 09:50 IMPRESSION: NORMAL BRAIN CT WITHOUT CONTRAST. Chest X-Ray 09/17/16 06:00 IMPRESSION: Tubes and lines in good positioning. Unchanged bandlike atelectasis in the right and left mid lung Trace residual left perihilar airspace disease Assessment & Plan - Diagnosis (1) Aspiration pneumonia Qualifiers: Aspiration pneumonia type: unspecified Laterality: left Lung location: lower lobe of lung Qualified Code(s): J69.0 - Pneumonitis due to inhalation of food and vomit Is this a current diagnosis for this admission?: No (2) Polysubstance overdose Qualifiers: Encounter type: initial encounter Injury intent: undetermined intent Qualified Code(s): T50.904A - Poisoning by unspecified drugs, medicaments and biological substances, undetermined, initial encounter Is this a current diagnosis for this admission?: YesPlan: Primary travel concern appears to be baclofen (3) Acute respiratory failure Qualifiers: Respiratory failure complication: hypoxia and hypercapnia Qualified Code(s): J96.01 - Acute respiratory failure with hypoxia Is this a current diagnosis for this admission?: YesPlan: Minute volume, respiratory rate, FiO2, airway pressures all suggest a successful extubation will proceed with extubation (4) Aspiration pneumonia due to inhalation of vomitus Is this a current diagnosis for this admission?: No (5) Metabolic acidosis due to ingestion of drugs or chemicals Is this a current diagnosis for this admission?: NoPlan: Improved (6) Morbid obesity with BMI of 45.0-49.9, adult Is this a current diagnosis for this admission?: YesPlan: Unchanged (7) Obstructive sleep apnea Is this a current diagnosis for this admission?: YesPlan: Patient will need a sleep study (8) Polypharmacy Is this a current diagnosis for this admission?: Yes - Time Critical Time spent with patient: 25-34 minutes - 30 minutes
--- NOTE | 2016-09-19 13:16 | PSYCHOLOGICAL NOTE ---
Psych Note - Psych Note Psych Note: Patient has a history of multiple admissions to the hospital for substance abuse or substance overdose. Patient was brought in today by EMS after being found having altered mental status at home rolling around and Feces or dog feces at her house. Son states that the patient was not taking any extra medication according to EMS. Clinician spoke with patient on services in [place] that was set up for patient. Patient stated she "didn't want to do it" because they wanted too much money. She further clarified that they would not accept her Medicaid. Patient disclosed events leading up to recent overdose was precipitated by her son and her getting into an argument. She continued to disclose that they had a "difference of opinion again" and this time her son disowned her which " pushed me over the edge." She continued disclosed that she "just wanted to sleep so he would be happy." Patient continued to disclose that she has been trying to get more income so he can get his own place. When asked what she was doing to get more income she disclosed that she contacted [facility] the about increasing his benefits because his father makes more money now. Clinician asked if patient herself an attempt to increase benefits for her son, patient denies self-harm for benefits. Patient is alert and orientated to person place time and circumstance. Mood is dysphoric with flat affect. Patient is verbalizing suicidal ideation, plan, mean and intense with her intentional overdose. Patient denies homicidal ideation. Patient denies auditory visual hallucinations; no delusions are noted. Thought processes are logical organized and linear. Conversational speech is low and muscle. Eye contact poor. Intellectual abilities appear to be within average range. Attention and concentration are fair. Insight, judgment, impulse control are poor. 311 (F32.9) Unspecified Depressive Disorder 292.9 (F19.99) Unspecified Other Substance Related Disorder Impression\\plan: Patient is recommended for IVC. Patient verbalized suicidal ideation with plans, means, and intent with recent intentional overdose. Patient has had approximately 1 overdose per month since April, with an escalation this month lasting only 5 days at home before overdosing again. There are some indications each overdose have been precipitated by an argument with her son. Patient in the past his strongly denied suicidal ideation and has stated he were accidental reported substance abuse. At this time, there is now indication the patient has been minimizing the family discord and the patient has a possibility overdosing as suicidal gesture. Clinician notes that since April, toxicology reports indicate only one visit were the patient had a narcotic in her system; in July. Patient has verbalized to [facility] staff that she has overdosed on Baclofen each time. Patient is recommended for inpatient treatment. She is considered a danger to herself. Attending physician is in agreement with recommendations and disposition.
--- NOTE | 2016-09-19 14:09 | PDOC PROGRESS REPORT ---
Subjective Progress Note for:: 09/19/16 Subjective:: Patient is quite sleepy this morning. She is unable to tell me anything surrounding admission. Patient denies chest pain, shortness of breath, abdominal pain, nausea, vomiting , fevers, chills, diarrhea, constipation, headache, new onset weakness. Physical Exam Vital Signs: Temp Pulse Resp BP Pulse Ox 37.1 F L 80 16 119/69 100 09/19/16 05:33 09/18/16 20:00 09/18/16 18:00 09/19/16 05:37 09/19/16 06:00 Intake & Output 09/18/16 09/19/16 09/20/16 06:59 06:59 06:59 Intake Total 5493 3135 Output Total 4260 5135 Balance 1233 -2000 Weight 122.6 kg 121.1 kg Exam: General: Awake sleepy and oriented x2, no acute respiratory distress HEENT: AT/NC, PERRL, EOMI, oropharynx is moist, pink, no scleral icterus, no conjunctival injection Neck: No JVD, trachea midline Chest: Clear to auscultation bilaterally, no wheezes rhonchi or rales CV: Tachycardic, Regular rate and rhythm, normal S1 and S2, no murmur, rub, or gallop Abdomen: Soft, nontender to palpation, nondistended, active bowel sounds; no rebound, rigidity, or guarding Extremities: No cyanosis, clubbing or edema Neuro: Cranial nerves II through XII are grossly intact without focal deficits; awake alert and oriented x2 Psych: Depressed mood and affect Results Laboratory Results: 09/18/16 05:45 09/18/16 05:45 09/13/16 17:47 Blood Blood Culture - Final NO GROWTH IN 5 DAYS 09/13/16 15:00 Blood Blood Culture - Final NO GROWTH IN 5 DAYS Impressions: Abdomen/Pelvis CT 09/13/16 09:50 IMPRESSION: NO SIGNIFICANT OR ACUTE FINDING IN THE ABDOMEN OR PELVIS ON CT SCAN WITH IV CONTRAST. Chest/Abdomen CTA 09/13/16 09:50 IMPRESSION: No CT angio evidence of acute pulmonary emboli or thoracic aortic dissection. Patchy consolidation in the left lower lobe atelectasis versus pneumonia. Bandlike atelectasis right lung base. Head CT 09/13/16 09:50 IMPRESSION: NORMAL BRAIN CT WITHOUT CONTRAST. Chest X-Ray 09/17/16 06:00 IMPRESSION: Tubes and lines in good positioning. Unchanged bandlike atelectasis in the right and left mid lung Trace residual left perihilar airspace disease Assessment & Plan - Diagnosis (1) Acute respiratory failure Qualifiers: Respiratory failure complication: hypoxia and hypercapnia Qualified Code(s): J96.01 - Acute respiratory failure with hypoxia Is this a current diagnosis for this admission?: YesPlan: Patient now extubated doing well. Swelling evaluation. Continue treatment for pneumonia. (2) Baclofen overdose Qualifiers: Encounter type: subsequent encounter Injury intent: intentional self- harm Qualified Code(s): T42.8X2D - Poisoning by antiparkinsonism drugs and other central muscle-tone depressants, intentional self-harm, subsequent encounter Is this a current diagnosis for this admission?: YesPlan: Patient will remain IVC. Continue low-dose baclofen to prevent withdrawal. (3) Acute encephalopathy Is this a current diagnosis for this admission?: YesPlan: Secondary to patient's medications (4) Aspiration pneumonia Qualifiers: Aspiration pneumonia type: unspecified Laterality: left Lung location: lower lobe of lung Qualified Code(s): J69.0 - Pneumonitis due to inhalation of food and vomit Is this a current diagnosis for this admission?: YesPlan: Patient currently on Levaquin for this. Will stop cefepime today. Patient was recently hospitalized for very similar episode and at that time was growing out Staphylococcus aureus her sputum. Current sputum culture is negative. (5) Chronic pain Qualifiers: Chronic pain type: other chronic pain Qualified Code(s): G89.29 - Other chronic pain Is this a current diagnosis for this admission?: Yes (6) Tobacco dependency Is this a current diagnosis for this admission?: Yes (7) Anemia Qualifiers: Anemia type: iron deficiency Iron deficiency anemia type: inadequate dietary iron intake Qualified Code(s): D50.8 - Other iron deficiency anemias Is this a current diagnosis for this admission?: Yes (8) DVT prophylaxis Is this a current diagnosis for this admission?: Yes (9) GI prophylaxis Is this a current diagnosis for this admission?: Yes (10) Obstructive sleep apnea Is this a current diagnosis for this admission?: Yes (11) Status post gastric bypass for obesity Is this a current diagnosis for this admission?: Yes (12) Bipolar affective disorder Qualifiers: Active/Remission status: currently active Current bipolar episode type : mixed Current episode severity: severe Psychotic features: without psychotic features Qualified Code(s): F31.63 - Bipolar disorder, current episode mixed, severe, without psychotic features Is this a current diagnosis for this admission?: YesPlan: Pending recommendations from psychology. - Time Time Spent with patient: 25-34 minutes Medications reviewed and adjusted accordingly: Yes Anticipated discharge: Other - Psychiatric facility Within: when bed available
[2016-09-19] MEDS ORDERED: PHARMACY COMMUNICATION ORDER MC NR (14:15)
[2016-09-19] MEDS: LEVOFLOXACIN 750 MG/D5W RTU 750 MG/150 ML RTUPB IV SCH (14:46)
[2016-09-19] MEDS ORDERED: METOPROLOL TARTRATE PF/INJ 5 MG/5 ML SDV IV ONE (14:50)
[2016-09-19] MEDS ORDERED: NICOTINE 21 MG/24 HR PATCH.TD24 TD PRN (15:21)
[2016-09-19] MEDS: BACLOFEN 10 MG TABLET PO SCH (17:39)
[2016-09-19] MEDS: IBUPROFEN 400 MG TABLET PO PRN (18:26)
[2016-09-19] MEDS: FAMOTIDINE 20 MG TABLET PO SCH (23:28)
[2016-09-19] MEDS: PROPRANOLOL HCL 20 MG TABLET PO SCH (23:29)
[2016-09-20] MEDS: ACETAMINOPHEN 325 MG TABLET PO PRN ×3 (01:01→21:23)
[2016-09-20] MEDS: ENOXAPARIN SODIUM INJ 40 MG/0.4 ML DISP.SYRIN SUBCUT SCH (07:49)
[2016-09-20] MEDS: IBUPROFEN 400 MG TABLET PO PRN ×2 (08:47→18:46)
[2016-09-20] MEDS: LEVOFLOXACIN 750 MG TABLET PO SCH (09:04)
[2016-09-20] MEDS: FAMOTIDINE 20 MG TABLET PO SCH ×2 (09:04→21:18)
[2016-09-20] MEDS: BACLOFEN 10 MG TABLET PO SCH (09:04)
[2016-09-20] MEDS: PROPRANOLOL HCL 20 MG TABLET PO SCH (09:04)
[2016-09-20] MEDS: NICOTINE 21 MG/24 HR PATCH.TD24 TD SCH (09:06)
[2016-09-20] MEDS ORDERED: PROPRANOLOL HCL 20 MG TABLET PO SCH (16:34)
[2016-09-20] MEDS ORDERED: HYDROXYZINE PAMOATE 50 MG CAPSULE PO PRN (16:35)
--- NOTE | 2016-09-20 17:01 | PDOC PROGRESS REPORT ---
Subjective Progress Note for:: 09/20/16 Subjective:: Patient complains of her normal chronic back pain. She reports that oftentimes she feels her pain is often so great that she just wants to sleep. Patient then denies SI or HI. Patient reports intentionally taking too much medication. Patient denies chest pain, shortness of breath, abdominal pain, nausea, vomiting , fevers, chills, diarrhea, constipation, headache, new onset weakness. Physical Exam Vital Signs: Temp Pulse Resp BP Pulse Ox 97.8 F 91 19 121/70 100 09/20/16 00:00 09/20/16 00:00 09/20/16 00:00 09/20/16 00:00 09/20/16 00:00 Intake & Output 09/19/16 09/20/16 09/21/16 06:59 06:59 06:59 Intake Total 3135 520 Output Total 5103 1775 Balance -2000 -1255 Weight 121.1 kg 119.3 kg Exam: General: Awake sleepy and oriented x3, no acute respiratory distress HEENT: AT/NC, PERRL, EOMI, oropharynx is moist, pink, no scleral icterus, no conjunctival injection Neck: No JVD, trachea midline Chest: Clear to auscultation bilaterally, no wheezes rhonchi or rales CV: Regular rate and rhythm, normal S1 and S2, no murmur, rub, or gallop Abdomen: Soft, nontender to palpation, nondistended, active bowel sounds; no rebound, rigidity, or guarding Extremities: No cyanosis, clubbing or edema Neuro: Cranial nerves II through XII are grossly intact without focal deficits; awake alert and oriented x3 Psych: Depressed mood and affect Results Laboratory Results: 09/18/16 05:45 09/18/16 05:45 09/17/16 09:12 Tracheal Aspirate Gram Stain - Final 09/17/16 09:12 Tracheal Aspirate Sputum Culture - Final C.albicans/C.dubliniensis Normal Nydia Impressions: Abdomen/Pelvis CT 09/13/16 09:50 IMPRESSION: NO SIGNIFICANT OR ACUTE FINDING IN THE ABDOMEN OR PELVIS ON CT SCAN WITH IV CONTRAST. Chest/Abdomen CTA 09/13/16 09:50 IMPRESSION: No CT angio evidence of acute pulmonary emboli or thoracic aortic dissection. Patchy consolidation in the left lower lobe atelectasis versus pneumonia. Bandlike atelectasis right lung base. Head CT 09/13/16 09:50 IMPRESSION: NORMAL BRAIN CT WITHOUT CONTRAST. Chest X-Ray 09/17/16 06:00 IMPRESSION: Tubes and lines in good positioning. Unchanged bandlike atelectasis in the right and left mid lung Trace residual left perihilar airspace disease Assessment & Plan - Diagnosis (1) Acute respiratory failure Qualifiers: Respiratory failure complication: hypoxia and hypercapnia Qualified Code(s): J96.01 - Acute respiratory failure with hypoxia Is this a current diagnosis for this admission?: YesPlan: Patient now extubated doing well. Continue treatment for pneumonia. (2) Baclofen overdose Qualifiers: Encounter type: subsequent encounter Injury intent: intentional self- harm Qualified Code(s): T42.8X2D - Poisoning by antiparkinsonism drugs and other central muscle-tone depressants, intentional self-harm, subsequent encounter Is this a current diagnosis for this admission?: YesPlan: Patient will remain IVC. Continue low-dose baclofen to prevent withdrawal. (3) Acute encephalopathy Is this a current diagnosis for this admission?: YesPlan: Secondary to patient's medications. Improved (4) Aspiration pneumonia Qualifiers: Aspiration pneumonia type: unspecified Laterality: left Lung location: lower lobe of lung Qualified Code(s): J69.0 - Pneumonitis due to inhalation of food and vomit Is this a current diagnosis for this admission?: YesPlan: Patient currently on Levaquin for this. Patient was recently hospitalized for very similar episode and at that time was growing out Staphylococcus aureus her sputum. Current sputum culture is negative. (5) Chronic pain Qualifiers: Chronic pain type: other chronic pain Qualified Code(s): G89.29 - Other chronic pain Is this a current diagnosis for this admission?: YesPlan: Lidoderm and Haldol when necessary encourage ambulation (6) Tobacco dependency Is this a current diagnosis for this admission?: Yes (7) Anemia Qualifiers: Anemia type: iron deficiency Iron deficiency anemia type: inadequate dietary iron intake Qualified Code(s): D50.8 - Other iron deficiency anemias Is this a current diagnosis for this admission?: Yes (8) DVT prophylaxis Is this a current diagnosis for this admission?: Yes (9) GI prophylaxis Is this a current diagnosis for this admission?: Yes (10) Obstructive sleep apnea Is this a current diagnosis for this admission?: Yes (11) Status post gastric bypass for obesity Is this a current diagnosis for this admission?: Yes (12) Bipolar affective disorder Qualifiers: Active/Remission status: currently active Current bipolar episode type : mixed Current episode severity: severe Psychotic features: without psychotic features Qualified Code(s): F31.63 - Bipolar disorder, current episode mixed, severe, without psychotic features Is this a current diagnosis for this admission?: YesPlan: Patient is currently medically stable for transfer to an inpatient psychiatric facility. At this time I feel that this patient requires inpatient IVC. Although she will state that she does not want to hurt herself, she repeatedly engages in self harm. Patient has been free of all substances for several months now. Feel that patient's underlying mental illness is source for general substance abuse issues. - Time Time Spent with patient: 35 or more minutes Medications reviewed and adjusted accordingly: Yes
[2016-09-20] MEDS: CALCIUM CARBONATE 250 MG/VITAMIN D3 125 UNIT TABLET PO SCH (17:46)
[2016-09-20] MEDS: MULTIVITAMINS W-IRON TABLET, CHEWABLE PO SCH (17:46)
[2016-09-20] MEDS ORDERED: LIDOCAINE 5% (700 MG) TRANSDERMAL ADH..PATCH TP ONE (18:00)
[2016-09-20] MEDS: PROPRANOLOL HCL 40 MG TABLET PO SCH (21:18)
[2016-09-20] MEDS ORDERED: BACLOFEN 10 MG TABLET PO SCH (22:00)
[2016-09-21] MEDS: ACETAMINOPHEN 325 MG TABLET PO PRN (02:32)
[2016-09-21 08:14] VITALS: BP 117/47
[2016-09-21] MEDS: ENOXAPARIN SODIUM INJ 40 MG/0.4 ML DISP.SYRIN SUBCUT SCH (08:15)
[2016-09-21] MEDS: IBUPROFEN 400 MG TABLET PO PRN (08:22)
[2016-09-21] MEDS ORDERED: LIDOCAINE 5% (700 MG) TRANSDERMAL ADH..PATCH TP SCH (10:00)
[2016-09-21] MEDS: PROPRANOLOL HCL 40 MG TABLET PO SCH (10:41)
[2016-09-21] MEDS: MULTIVITAMINS W-IRON TABLET, CHEWABLE PO SCH (10:41)
[2016-09-21] MEDS: LEVOFLOXACIN 750 MG TABLET PO SCH (10:42)
[2016-09-21] MEDS: FAMOTIDINE 20 MG TABLET PO SCH (10:42)
[2016-09-21] MEDS: CALCIUM CARBONATE 250 MG/VITAMIN D3 125 UNIT TABLET PO SCH (10:42)
[2016-09-21] MEDS: NICOTINE 21 MG/24 HR PATCH.TD24 TD SCH (10:43)
--- NOTE | 2016-09-21 11:38 | PDOC DISCHARGE SUMMARY ---
General - Admit/Disc Date/PCP Admission Date/Primary Care Provider: 09/13/16 13:56 Discharge Date: 09/21/16 - Discharge Diagnosis (1) Acute respiratory failure Is this a current diagnosis for this admission?: Yes (2) Baclofen overdose Is this a current diagnosis for this admission?: Yes (3) Acute encephalopathy Is this a current diagnosis for this admission?: Yes (4) Aspiration pneumonia Is this a current diagnosis for this admission?: Yes (5) Chronic pain Is this a current diagnosis for this admission?: Yes (6) Tobacco dependency Is this a current diagnosis for this admission?: Yes (7) Anemia Is this a current diagnosis for this admission?: Yes (8) DVT prophylaxis Is this a current diagnosis for this admission?: Yes (9) GI prophylaxis Is this a current diagnosis for this admission?: Yes (10) Obstructive sleep apnea Is this a current diagnosis for this admission?: Yes (11) Status post gastric bypass for obesity Is this a current diagnosis for this admission?: Yes (12) Bipolar affective disorder Is this a current diagnosis for this admission?: Yes - Additional Information Resuscitation Status: Full Code Discharge Diet: Regular Discharge Activity: Activity As Tolerated Home Medications: Duloxetine HCl [Cymbalta] 60 mg PO Q12 07/09/16 Pregabalin [Lyrica] 200 mg PO TID 09/05/16 Tizanidine HCl [Zanaflex 4 mg Tablet] 4 mg PO DAILYP PRN 09/05/16 Levofloxacin [Levaquin 750 mg Tablet] 750 mg PO DAILY #5 tablet 09/09/16 Propranolol HCl [Inderal 40 mg Tablet] 40 mg PO Q12 #30 tablet 09/09/16 Venlafaxine HCl [Effexor 25 mg Tablet] 25 mg PO Q12 #30 tablet 09/09/16 Baclofen [Baclofen 10 mg Tablet] 20 mg PO TID 09/13/16 Hydromorphone HCl 4 mg PO BID 09/13/16 Meloxicam 7.5 mg PO BID 09/13/16 Pseudoephedrine HCl [Sudafed] 30 mg PO ASDIR PRN 09/13/16 Ropinirole HCl [Requip] 1 mg PO BID 09/13/16 History of Present Illness History of Present Illness: GILBERT WANG is a 41 year old female that is well-known to our facility for frequent polysubstance overdose requiring hospitalization. Patient has history of bipolar disorder and chronic pain. It is thought she overdosed on baclofen. I cannot obtain history from patient as she is sedated and intubated the time of my evaluation. Hospital Course Hospital Course: Patient was found with decreased level of consciousness and required intubation for airway protection. Patient was extubated on 09/15/16 but developed airway stridor and required re-intubation after failing conservative management with racemic epi and decadron. patient was placed on scheduled decadron and then was extubated on 09/18/16. Patient had aspiration pneumonia on last admission and grew Staph Aureus which was treated with Levaquin. Patient is doing well and stable medically for transfer to [facility] for psychiatric services. Physical Exam Vital Signs: Temp Pulse Resp BP Pulse Ox 98.3 F 85 17 117/47 L 99 09/21/16 07:43 09/21/16 07:43 09/21/16 07:43 09/21/16 07:43 09/21/16 07:43 Intake & Output 09/20/16 09/21/16 09/22/16 06:59 06:59 06:59 Intake Total 520 1360 Output Total 1775 Balance -1255 1360 Weight 119.3 kg 119.5 kg Exam: General: Awake sleepy and oriented x3, no acute respiratory distress HEENT: AT/NC, PERRL, EOMI, oropharynx is moist, pink, no scleral icterus, no conjunctival injection Neck: No JVD, trachea midline Chest: Clear to auscultation bilaterally, no wheezes rhonchi or rales CV: Regular rate and rhythm, normal S1 and S2, no murmur, rub, or gallop Abdomen: Soft, nontender to palpation, nondistended, active bowel sounds; no rebound, rigidity, or guarding Extremities: No cyanosis, clubbing or edema Neuro: Cranial nerves II through XII are grossly intact without focal deficits; awake alert and oriented x3 Psych: Tearful, Depressed mood and affect Results Laboratory Results: 09/18/16 05:45 09/18/16 05:45 09/17/16 14:32 Blood Blood Culture - Final Staphylococcus Epidermidis 09/17/16 14:15 Barraza Catheter Urine Culture - Final NO GROWTH 2 DAYS Impressions: Abdomen/Pelvis CT 09/13/16 09:50 IMPRESSION: NO SIGNIFICANT OR ACUTE FINDING IN THE ABDOMEN OR PELVIS ON CT SCAN WITH IV CONTRAST. Chest/Abdomen CTA 09/13/16 09:50 IMPRESSION: No CT angio evidence of acute pulmonary emboli or thoracic aortic dissection. Patchy consolidation in the left lower lobe atelectasis versus pneumonia. Bandlike atelectasis right lung base. Head CT 09/13/16 09:50 IMPRESSION: NORMAL BRAIN CT WITHOUT CONTRAST. Chest X-Ray 09/17/16 06:00 IMPRESSION: Tubes and lines in good positioning. Unchanged bandlike atelectasis in the right and left mid lung Trace residual left perihilar airspace disease Qualifiers PATEINT BEING DISCHARGED WITH ANY OF THE FOLLOWING DIAGNOSIS?: No Plan Time Spent: Less than 30 Minutes
== END 2016-09-21 12:15 | DRG 917 ==
LOC: ER 08:09 → UNDOADMIN 13:35 → EH 13:35 → ICU 15:55 → 4N 09-19 16:27
PROVIDERS: ADMIT Family Medicine; ATTEND Family Medicine
PROC: 0BH17EZ Insertion of Endotracheal Airway into Trachea, Via Natural or Artificial Opening (ICD-10-PCS; principal; 2016-09-13)
PROC: 5A1955Z Respiratory Ventilation, Greater than 96 Consecutive Hours (ICD-10-PCS; 2016-09-13)
PROC: 02H633Z Insertion of Infusion Device into Right Atrium, Percutaneous Approach (ICD-10-PCS; 2016-09-13)
DX: T42.8X2A Poisoning by antiparkinsonism drugs and other central muscle-tone depressants, intentional self-harm, initial encounter (principal); J96.01 Acute respiratory failure with hypoxia; A41.9 Sepsis, unspecified organism; J69.0 Pneumonitis due to inhalation of food and vomit; F31.63 Bipolar disorder, current episode mixed, severe, without psychotic features; E87.2 Acidosis; Z68.42 Body mass index [BMI] 45.0-49.9, adult; Y92.9 Unspecified place or not applicable; I10 Essential (primary) hypertension; G89.29 Other chronic pain; R00.0 Tachycardia, unspecified; D64.9 Anemia, unspecified; E87.6 Hypokalemia; E16.2 Hypoglycemia, unspecified; E66.01 Morbid (severe) obesity due to excess calories; G47.33 Obstructive sleep apnea (adult) (pediatric); M19.90 Unspecified osteoarthritis, unspecified site; Z79.899 Other long term (current) drug therapy; Z98.84 Bariatric surgery status; Z88.8 Allergy status to other drugs, medicaments and biological substances; Z88.1 Allergy status to other antibiotic agents; I25.2 Old myocardial infarction
CPT/HCPCS: 31500; 36415; 51702; 70450; 71010; 71275; 74177; 80048; 80053; 80307; 81001; 82550; 82607; 82728; 82746; 82803; 82962; 83540; 83550; 83605; 83690; 83735; 84100; 84466; 84484; 84703; 85025; 85045; 85610; 85730; 87040; 87070; 87077; 87086; 87186; 87205; 93005; 93010; 94002; 94003; 94660; 94799; 96365; 96372; 96375; 99291; G8978-GP; G8979-GP; G8980-GP; J0330; J0692; J1100; J1170; J1200; J1630; J1642; J1650; J1956; J2060; J2250; J2704; J3480; J3490; S0028

== ENCOUNTER 2016-10-30 06:13 | Inpatient (IN) | payer MEDICARE, MEDICAID ==
--- NOTE | 2016-10-30 06:55 | ER Document Report ---
ED General - General Time seen by provider: 06:50 Mode of Arrival: Medic Information source: Emergency Med Personnel, [facility] Records TRAVEL OUTSIDE OF THE [place] IN LAST 30 DAYS: No - HPI Onset: Just prior to arrival - see HPI note Similar symptoms previously: Yes Recently seen / treated by doctor: Yes <CHANELL MARSHALL - Last Filed: 10/30/16 08:36> <NESTOR WHALEN - Last Filed: 10/30/16 15:00> - General Chief Complaint: Altered Mental Status Stated Complaint: ALTERED MENTAL STATUS Notes: Patient is a 41 year old female presenting to the emergency department for altered mental status and possible overdose. Patient was found wondering around an apartment complex. EMS brought in patient and noted that she has similar behavior when she takes baclofen. Patient has a long history of baclofen overdose and has repeatedly been treated in this emergency department for such. Patient has overdosed x1 each month since 06/30/17 as well as a few times in 2015. Patient was seen x2 in September in this emergency department for overdose and was intubated both times. Patient is awake currently and has had to be redirected by nurses multiple times. Patient has been getting out of her bed, had urinated on the floor and self. (CHANELL MARSHALL) - Related Data Allergies/Adverse Reactions: morphine [Morphine] Allergy (Severe, Verified 09/13/16 11:16) VOMITING trazodone [Trazodone] Allergy (Severe, Verified 09/13/16 11:16) codeine [Codeine] Allergy (Intermediate, Verified 09/13/16 11:16) cinnamon [Cinnamon] Allergy (Unknown, Verified 09/13/16 11:16) Swelling of Throat metformin HCl [From Glucophage] Allergy (Verified 09/13/16 11:16) Sulfa (Sulfonamide Antibiotics) Allergy (Verified 09/13/16 11:16) Past Medical History - General Information source: Emergency Med Personnel, [facility] Records Cannot obtain history due to: Altered mental status - Social History Smoking Status: Unknown if Ever Smoked Family History: None - Past Medical History Cardiac Medical History: Reports: Hx Hypertension Pulmonary Medical History: Reports: Hx Asthma, Hx Pneumonia, Hx Sleep Apnea Neurological Medical History: Reports: Hx Migraine Musculoskeltal Medical History: Reports Hx Arthritis Psychiatric Medical History: Reports: Hx Anxiety, Hx Bipolar Disorder, Hx Depression Past Surgical History: Reports: Hx Adenoidectomy - 3 TIMES REMOVED, Hx Gastric Bypass Surgery, Hx Tonsillectomy - 3 TIMES REMOVED - Immunizations Hx Diphtheria, Pertussis, Tetanus Vaccination: - unk Hx Pneumococcal Vaccination: 07/07/12 <CHANELL MARSHALL - Last Filed: 10/30/16 08:36> Review of Systems - Review of Systems -: Yes ROS unobtainable due to patient's medical condition <JOANNACHANELL - Last Filed: 10/30/16 08:36> Physical Exam - Vital signs Interpretation: Normal - General General appearance: Alert, Other - patinet in bed with siderails up In distress: Mild - HEENT Head: Normocephalic, Atraumatic Eyes: Normal Pupils: PERRL Mucous membranes: Moist - Respiratory Respiratory status: No respiratory distress Chest status: Nontender Breath sounds: Normal Chest palpation: Normal - Cardiovascular Rhythm: Regular Heart sounds: Normal auscultation Murmur: No - Abdominal Inspection: Morbidly Obese Distension: No distension Bowel sounds: Normal Tenderness: Nontender Organomegaly: No organomegaly - Back Back: Normal - Extremities General upper extremity: Normal inspection, Normal ROM, Normal strength General lower extremity: Normal inspection, Normal ROM, Normal strength - Neurological Neuro grossly intact: Yes Cognition: Normal Orientation: AAOx4 Aguirre Coma Scale Eye Opening: Spontaneous Aguirre Coma Scale Verbal: Oriented Steffanie Coma Scale Motor: Obeys Commands Aguirre Coma Scale Total: 15 Speech: Normal - Psychological Associated symptoms: Other - patient is not very responsive at time of exam - Skin Skin Temperature: Warm Skin Moisture: Dry <JOANNACHANELL - Last Filed: 10/30/16 08:36> Course <JOANNACHANELL - Last Filed: 10/30/16 08:36> - Laboratory Result Diagrams: 10/30/16 10:03 10/30/16 10:03 - EKG Interpretation by Ks EKG shows normal: Sinus rhythm, [place], Intervals, QRS Complexes, ST-T Waves Rate: Tachycardia - 105 When compared to previous EKG there are: No significant change <NESTOR WHALEN - Last Filed: 10/30/16 15:00> - Re-evaluation Re-evalutation: 10/30/16 15:00 Patient was seen by psych and they agreed with IVC placement. (NESTOR WHALEN) - Vital Signs Vital signs: Temp Pulse Resp BP Pulse Ox 98.4 F 102 H 20 133/88 H 98 10/30/16 06:28 10/30/16 06:28 10/30/16 06:28 10/30/16 06:28 10/30/16 06:28 - Laboratory Laboratory results interpreted by me: 10/30/16 10/30/16 10:03 10:03 Hgb 11.8 L MCV 78 L MCH 25.0 L RDW 17.5 H Creatinine 0.50 L Glucose 136 H Salicylates < 1.0 L Acetaminophen < 10 L Discharge <CHANELL MARSHALL - Last Filed: 10/30/16 08:36> <NESTOR WHALEN - Last Filed: 10/30/16 15:00> - Discharge Clinical Impression: Drug overdose, intentional Qualifiers: Encounter type: initial encounter Qualified Code(s): T50.902A - Poisoning by unspecified drugs, medicaments and biological substances, intentional self-harm , initial encounter Altered mental status Qualifiers: Altered mental status type: stupor Qualified Code(s): R40.1 - Stupor Condition: Stable Disposition: PSYCH HOSP/UNIT Scribe Attestation: 10/30/16 15:00 I personally performed the services described in the documentation, reviewed and edited the documentation which was dictated to the scribe in my presence, and it accurately records my words and actions. (NESTOR WHALEN) Scribe Documentation - Scribe Written by Scribe:: Chanell Marshall 10/30/16 8:50 acting as scribe for :: Collette <CHANELL MARSHALL - Last Filed: 10/30/16 08:36>
--- NOTE | 2016-10-30 07:48 | EKG REPORT ---
SEVERITY:- OTHERWISE NORMAL ECG - SINUS TACHYCARDIA : Confirmed by: Jacob Arias 30-Oct-2016 07:46:59
[2016-10-30 10:02] LABS: APPEARANCE,URINE CLEAR; BILIRUBIN,URINE NEGATIVE (NEGATIVE); GLUCOSE, URINE NEGATIVE (NEGATIVE); KETONES,URINE NEGATIVE (NEGATIVE); LEUKOCYTE ESTERASE,URINE NEGATIVE (NEGATIVE); NITRITE,URINE NEGATIVE (NEGATIVE); PROTEIN,URINE NEGATIVE (NEGATIVE); URINE SPECIFIC GRAVITY 1.017; UROBILINOGEN,URINE NEGATIVE mg/dL (<2.0)
[2016-10-30 10:18] LABS: ABSOLUTE LYMPHOCYTES (AUTO) 1.3 10^3/uL (0.5-4.7); ABSOLUTE MONOCYTES (AUTO) 0.5 10^3/uL (0.1-1.4); ABSOLUTE NEUT (AUTO) 5.9 10^3/uL (1.7-8.2); BASOPHILS % (AUTO) 0.4 % (0-2); EOSINOPHILS % (AUTO) 0.4 % (0-6); HEMOGLOBIN 11.8 g/dL (12.0-15.5); HGB HCT DIFFERENCE -1.6; LYMPHOCYTES % (AUTO) 16.1 % (13-45); MEAN CORPUSCULAR VOLUME 78 fl (80-97); MONOCYTES % (AUTO) 6.8 % (3-13); RED BLOOD COUNT 4.73 10^6/uL (3.72-5.28); RED CELL DISTRIBUTION WIDTH 17.5 % (11.5-14.0); SEGMENTED NEUTROPHILS % (AUTO) 76.3 % (42-78); WHITE BLOOD COUNT 7.8 10^3/uL (4.0-10.5)
[2016-10-30 10:27] LABS: URINE BARBITURATES SCREEN NEGATIVE; URINE METHADONE SCREEN NEGATIVE; URINE OPIATES LOW NEGATIVE; URINE PHENCYCLIDINE SCREEN NEGATIVE
[2016-10-30 10:48] LABS: ALANINE AMINOTRANSFERASE 29 U/L (9-52); ALBUMIN 4.2 g/dL (3.5-5.0); ALKALINE PHOSPHATASE 95 U/L (38-126); ANION GAP 17 (5-19); ASPARTATE AMINO TRANSFERASE 22 U/L (14-36); BILIRUBIN,DIRECT 0.2 mg/dL (0.0-0.4); BILIRUBIN,TOTAL 0.7 mg/dL (0.2-1.3); BLOOD UREA NITROGEN 17 mg/dL (7-20); CALCIUM 9.6 mg/dL (8.4-10.2); CARBON DIOXIDE 22 mmol/L (22-30); CHLORIDE 106 mmol/L (98-107); GLUCOSE 136 mg/dL (75-110); POTASSIUM 4.1 mmol/L (3.6-5.0); SODIUM 144.9 mmol/L (137-145); TOTAL PROTEIN 6.8 g/dL (6.3-8.2)
[2016-10-30 10:49] LABS: ALCOHOL < 10 mg/dL (NONE DETECTED)
--- NOTE | 2016-10-30 12:50 | PSYCHOLOGICAL NOTE ---
Psych Note - Psych Note Psych Note: Patient is a 41-year-old female who presented early this morning via EMS after she was found wandering outside disoriented. Patient is well known to both this clinician in this department for numerous prior episodes of similar etiology. Patient has a lengthy history of drug overdose, often times on her prescribed baclofen. Patient has presented 8 times since December 2015 for similar complaints. Patient historically has aspirated requiring intubation. Patient is currently being monitored medically. Patient is unable to verbally engage in conversation and presents this oriented. Patient is recommended for an involuntary commitment as she is considered a danger to herself at this time. We will attempt to evaluate patient at a later time.
[2016-10-30] MEDS ORDERED: LORAZEPAM INJ 2 MG/1 ML VIAL IM ONE ×4 (18:25→23:24)
[2016-10-31] MEDS ORDERED: LORAZEPAM INJ 2 MG/1 ML VIAL IM ONE (00:11)
--- NOTE | 2016-10-31 00:12 | ER Document Report ---
Doctor's Note Notes: 10/31/16 00:11 I did reevaluate the patient. She still agitated. She was still not verbal him make it with me. She is awake alert. She is kind of fight against the restraints on occasion. We'll re-dose her with Ativan. I did listen to her heart lungs. Her lungs are clear. Her heart sounds to be regular rate and rhythm. We will continue to closely monitor. 10/31/16 00:25 I did speak with poison control center. I did review her most recent vital signs as well as her current condition with them. They're not convinced that this is a baclofen overdose. I'm not sure myself. This could be baclofen withdrawal. It also could be an antihistamine overdose. It is not clear exactly what she overdoes being that we don't have any good history to follow with other than her previous history of baclofen overdose at previous visits. They agree with plan to place her machine sole leveler, continue benzodiazepines for agitation, and continue close monitoring. I will repeat some blood work. I will repeat an EKG. I will give her IV fluids. I will continue to monitor her closely. 10/31/16 02:44 Despite several doses of Valium patient remains tachycardic and still is trying to move around in the bed. Her CPKs elevated most likely due to her being very restless and continuing to try to move. I did review her records from her previous admissions for similar symptoms following overdose. Appears that the past she did overdose on many things including baclofen as well as Sudafed and other cough and cold medications. I think it's appropriate to admit the patient. In reviewing her previous records usually takes at least 2-3 days before she is even able to talk and respond appropriately after these overdoses. She is are been in the ER for over 20 hours. I did page the hospitalist and I am awaiting to hear back about admission. I will continue the patient's benzodiazepines to try to control her agitation. 10/31/16 03:[address] speak with Dr[address] An, hospitalist, who agrees to admit the patient. Continue to give the patient high doses of Valium to help calm down her agitation. I started IV fluids to help avoid complications from rhabdo.
[2016-10-31] MEDS ORDERED: NORMAL SALINE 1000 ML 1,000 ML IV ONE ×2 (00:20→02:22)
[2016-10-31] MEDS ORDERED: DIAZEPAM INJ 10 MG/2 ML DISP.SYRIN IV ONE ×3 (00:53→02:44)
[2016-10-31 01:42] LABS: ABSOLUTE MONOCYTES (AUTO) 1.8 10^3/uL (0.1-1.4); ABSOLUTE NEUT (AUTO) 11.5 10^3/uL (1.7-8.2); BASOPHILS % (AUTO) 0.1 % (0-2); HEMATOCRIT 34.4 % (36.0-47.0); HEMOGLOBIN 11.1 g/dL (12.0-15.5); HGB HCT DIFFERENCE -1.1; LYMPHOCYTES % (AUTO) 6.8 % (13-45); MEAN CORPUSCULAR HEMOGLOBIN 24.6 pg (27.0-33.4); MEAN CORPUSCULAR HGB CONC 32.3 g/dL (32.0-36.0); MEAN CORPUSCULAR VOLUME 76 fl (80-97); MONOCYTES % (AUTO) 12.9 % (3-13); RED BLOOD COUNT 4.51 10^6/uL (3.72-5.28); RED CELL DISTRIBUTION WIDTH 17.6 % (11.5-14.0); SEGMENTED NEUTROPHILS % (AUTO) 80.2 % (42-78); WHITE BLOOD COUNT 14.4 10^3/uL (4.0-10.5)
[2016-10-31 01:51] LABS: ALANINE AMINOTRANSFERASE 37 U/L (9-52); ALBUMIN 3.9 g/dL (3.5-5.0); ALKALINE PHOSPHATASE 93 U/L (38-126); ANION GAP 18 (5-19); ASPARTATE AMINO TRANSFERASE 95 U/L (14-36); BILIRUBIN,DIRECT 0.1 mg/dL (0.0-0.4); BILIRUBIN,TOTAL 1.2 mg/dL (0.2-1.3); BLOOD UREA NITROGEN 22 mg/dL (7-20); CALCIUM 9.3 mg/dL (8.4-10.2); CARBON DIOXIDE 19 mmol/L (22-30); CHLORIDE 113 mmol/L (98-107); CREATININE RESULT 0.55 mg/dL (0.52-1.25); GLUCOSE 123 mg/dL (75-110); POTASSIUM 3.7 mmol/L (3.6-5.0); SODIUM 149.5 mmol/L (137-145); TOTAL PROTEIN 6.4 g/dL (6.3-8.2)
[2016-10-31 02:15] LABS: CREATINE KINASE 4065 U/L (30-135)
[2016-10-31] MEDS ORDERED: METOPROLOL TARTRATE PF/INJ 5 MG/5 ML SDV IV PRN (03:49)
[2016-10-31] MEDS ORDERED: ACETAMINOPHEN 650 MG SUPP.RECT PR PRN (03:49)
[2016-10-31] MEDS ORDERED: ONDANSETRON HCL INJ/PF 4 MG/2 ML SDV IV PRN (03:49)
[2016-10-31] MEDS ORDERED: DEXTROSE 40% GEL 15 GM TUBE PO PRN ×2 (03:57)
[2016-10-31] MEDS ORDERED: INSULIN LISPRO 100 UNIT/ML 3 ML VIAL SUBCUT PRN (03:57)
[2016-10-31] MEDS ORDERED: DEXTROSE 50%-WATER 25 GM/50 ML DISP.SYRIN IV PRN ×2 (03:57)
[2016-10-31] MEDS ORDERED: GLUCAGON,HUMAN RECOMB 1 MG INJ IM PRN (03:57)
[2016-10-31] MEDS ORDERED: FOLIC ACID INJ 5 MG/1 ML 10 ML VIAL IV PRN (04:11)
[2016-10-31] MEDS ORDERED: THIAMINE HCL INJ 200 MG/2 ML VIAL IV PRN (04:11)
[2016-10-31] MEDS ORDERED: IPRATROPIUM/ALBUTEROL 0.5-2.5 MG/3 ML AMPUL NEB ONE (04:30)
[2016-10-31] MEDS: POTASSI CL 20 MEQ/D5-1/2NS 1L 1,000 ML IV SCH ×3 (05:13→15:23)
[2016-10-31] MEDS: HEPARIN SOD (PORCINE) 5,000 UNIT/ML 1 ML SYRINGE SUBCUT SCH ×2 (05:24→15:21)
--- NOTE | 2016-10-31 06:04 | PDOC H&P ---
History of Present Illness Admission Date/PCP: 10/31/16 03:49 Patient complains of: Altered mental status History of Present Illness: GILBERT WANG is a 41 year old female well known to the hospitalist service secondary to past medical history of polysubstance abuse, chronic pain, depression, gastric bypass and recurrent presentations with encephalopathy and overdose requiring critical care and at times intubation for airway protection. This is at least the eighth time in the last 10 months with similar presentations. She presents after being found disoriented outside alone, aphasic and tachycardic, she is evaluated by mental health and pending inpatient transfer but developed significant agitation and tachycardia without significant improvement after 15mg of Valium over the last 2 hours. prompting reevaluation of her labs finding rhabdomyolysis with hypernatremia and referred to the hospitalist for admission. Patient is awake and alert but unable to provide any history whatsoever. Past Medical History Cardiac Medical History: Reports: Hypertension Denies: Coronary Artery Disease, Myocardial Infarction Pulmonary Medical History: Reports: Asthma, Pneumonia, Sleep Apnea Denies: Bronchitis, Chronic Obstructive Pulmonary Disease (COPD) Neurological Medical History: Reports: Migraine Denies: Seizures GI Medical History: Denies: Hepatitis, Hiatal Hernia Musculoskeltal Medical History: Reports: Arthritis Psychiatric Medical History: Reports: Bipolar Disorder, Depression Hematology: Reports: Anemia Denies: Sickle Cell Disease Past Surgical History Past Surgical History: Reports: Adenoidectomy - 3 TIMES REMOVED, Gastric Bypass Surgery, Tonsillectomy - 3 TIMES REMOVED Denies: Amputation, Mastectomy, Pacemaker Social History Information Source: [facility] Records Smoking Status: Unknown if Ever Smoked Frequency of Alcohol Use: None Hx Recreational Drug Use: No Drugs: None, Other Hx Prescription Drug Abuse: Yes - Advance Directive Resuscitation Status: Full Code Family History Family History: Other Parental Family History Reviewed: Yes - unobtainable Children Family History Reviewed: No Sibling(s) Family History Reviewed.: No Medication/Allergy Home Medications: Duloxetine HCl [Cymbalta] 60 mg PO Q12 07/09/16 Pregabalin [Lyrica] 200 mg PO TID 09/05/16 Tizanidine HCl [Zanaflex 4 mg Tablet] 4 mg PO DAILYP PRN 09/05/16 Levofloxacin [Levaquin 750 mg Tablet] 750 mg PO DAILY #5 tablet 09/09/16 Propranolol HCl [Inderal 40 mg Tablet] 40 mg PO Q12 #30 tablet 09/09/16 Venlafaxine HCl [Effexor 25 mg Tablet] 25 mg PO Q12 #30 tablet 09/09/16 Baclofen [Baclofen 10 mg Tablet] 20 mg PO TID 09/13/16 Hydromorphone HCl 4 mg PO BID 09/13/16 Meloxicam 7.5 mg PO BID 09/13/16 Pseudoephedrine HCl [Sudafed] 30 mg PO ASDIR PRN 09/13/16 Ropinirole HCl [Requip] 1 mg PO BID 09/13/16 Allergies/Adverse Reactions: morphine [Morphine] Allergy (Severe, Verified 09/13/16 11:16) VOMITING trazodone [Trazodone] Allergy (Severe, Verified 09/13/16 11:16) codeine [Codeine] Allergy (Intermediate, Verified 09/13/16 11:16) cinnamon [Cinnamon] Allergy (Unknown, Verified 09/13/16 11:16) Swelling of Throat metformin HCl [From Glucophage] Allergy (Verified 09/13/16 11:16) Sulfa (Sulfonamide Antibiotics) Allergy (Verified 09/13/16 11:16) Review of Systems ROS unobtainable: Due to mental status Physical Exam Vital Signs: Temp Pulse Resp BP Pulse Ox 98.4 F 149 H 16 172/59 H 97 10/30/16 06:28 10/30/16 23:59 10/30/16 23:59 10/31/16 01:04 10/31/16 01:04 General appearance: PRESENT: no acute distress, disheveled, obese. ABSENT: cooperative Head exam: PRESENT: atraumatic, normocephalic Eye exam: PRESENT: conjunctiva pink, EOMI, PERRLA. ABSENT: scleral icterus Ear exam: PRESENT: normal external ear exam Mouth exam: PRESENT: moist, tongue midline Neck exam: ABSENT: carotid bruit, JVD, lymphadenopathy, thyromegaly Respiratory exam: PRESENT: clear to auscultation geetha. ABSENT: rales, rhonchi, wheezes Cardiovascular exam: PRESENT: RRR. ABSENT: diastolic murmur, rubs, systolic murmur Pulses: PRESENT: normal dorsalis pedis pul Vascular exam: PRESENT: normal capillary refill GI/Abdominal exam: PRESENT: normal bowel sounds, soft. ABSENT: distended, guarding, mass, organolmegaly, rebound, tenderness Rectal exam: PRESENT: deferred Extremities exam: PRESENT: full ROM. ABSENT: calf tenderness, clubbing, pedal edema Neurological exam: PRESENT: alert, altered, awake, aphasic Psychiatric exam: PRESENT: agitated, unusual affect Skin exam: PRESENT: abrasion, erythema, intact. ABSENT: cyanosis, jaundice Assessment & Plan - Diagnosis (1) Encephalopathy acute Is this a current diagnosis for this admission?: YesPlan: Toxic encephalopathy secondary polysubstance abuse medication also concerning for possible serotonin syndrome with Cymbalta lactoferrin Sudafed Lyrica Requip Zanaflex and Effexor. These meds obviously held supportive management when necessary benzodiazepine for sedation, reevaluation of chemistry and LFTs avoiding nephrotoxic meds and doses. She does IVC with follow-up to mental health (2) Rhabdomyolysis Qualifiers: Rhabdomyolysis type: non-traumatic Qualified Code(s): M62.82 - Rhabdomyolysis Is this a current diagnosis for this admission?: YesPlan: Likely secondary to resistance against restraints he is unable to follow commands requires rigid wrist restraints for combative behavior. Continue when necessary Valium follow-up total CK consideration of IV bicarbonate if not significantly improved (3) Morbid obesity with BMI of 45.0-49.9, adult Is this a current diagnosis for this admission?: YesPlan: Specialty bed and consideration of education and thyroid studies though multiple recent previous evaluations have been within normal limits (4) Obstructive sleep apnea Is this a current diagnosis for this admission?: YesPlan: BiPAP while sleeping (5) Polysubstance overdose Qualifiers: Encounter type: initial encounter Injury intent: undetermined intent Qualified Code(s): T50.904A - Poisoning by unspecified drugs, medicaments and biological substances, undetermined, initial encounter Is this a current diagnosis for this admission?: YesPlan: Mental health referral for recurrent polysubstance abuse reevaluation of toxicology screen (6) Sympathomimetic adverse reaction Is this a current diagnosis for this admission?: YesPlan: When necessary benzodiazepine (7) chronic opiate dependency Is this a current diagnosis for this admission?: YesPlan: Low-dose morphine avoiding opiate withdrawal (8) Bipolar affective disorder Qualifiers: Active/Remission status: currently active Current bipolar episode type : mixed Current episode severity: severe Psychotic features: without psychotic features Qualified Code(s): F31.63 - Bipolar disorder, current episode mixed, severe, without psychotic features Is this a current diagnosis for this admission?: YesPlan: Mental health consulted - Time Time Spent: 50 to 70 Minutes
[2016-10-31] MEDS: IPRATROPIUM/ALBUTEROL 0.5-2.5 MG/3 ML AMPUL NEB SCH ×2 (08:28→14:41)
[2016-10-31 08:56] LABS: TROPONIN I 1.79 ng/mL
[2016-10-31] MEDS ORDERED: ASPIRIN 81 MG TABLET, CHEWABLE PO ONE (09:31)
--- NOTE | 2016-10-31 09:43 | PSYCHOLOGICAL NOTE ---
Psych Note - Psych Note Psych Note: Patient is a 41-year-old female who presented early this morning via EMS after she was found wandering outside disoriented. Patient is well known to both this clinician in this department for numerous prior episodes of similar etiology. Patient has a lengthy history of drug overdose, often times on her prescribed baclofen. Patient has presented 8 times since December 2015 for similar complaints. Patient historically has aspirated requiring intubation. Patient is currently being monitored medically. Clinician attempted to evaluate patient; patient unable or unwilling to engage. Patient does not response verbally, does not make eye contact but is looking around the room. When asked to blink in response to determine if orientated but unable to communicate patient is unable or unwilling. Patient has been admitted , evaluation will occur at a later time.
--- NOTE | 2016-10-31 10:44 | PDOC PROGRESS REPORT ---
Subjective Progress Note for:: 10/31/16 Subjective:: Patient is moving all 4 extremities and she is in restraints. She will not answer questions. She is noted to have a positive troponin as well as positive CK-MB. Physical Exam Vital Signs: Temp Pulse Resp BP Pulse Ox 98.4 F 138 H 18 98/73 L 96 10/30/16 06:28 10/31/16 08:42 10/31/16 08:42 10/31/16 08:01 10/31/16 08:42 General appearance: PRESENT: disheveled Head exam: PRESENT: atraumatic, normocephalic Eye exam: PRESENT: conjunctiva pink. ABSENT: scleral icterus Ear exam: PRESENT: normal external ear exam Mouth exam: PRESENT: moist, tongue midline Neck exam: ABSENT: JVD Respiratory exam: PRESENT: clear to auscultation geetha. ABSENT: rales, rhonchi, wheezes Cardiovascular exam: PRESENT: RRR. ABSENT: diastolic murmur, rubs, systolic murmur GI/Abdominal exam: PRESENT: normal bowel sounds, soft. ABSENT: distended, guarding, mass, organolmegaly, rebound, tenderness Extremities exam: ABSENT: calf tenderness, clubbing, pedal edema Neurological exam: PRESENT: altered, other - Moving all 4 extremities but refuses otherwise 10 days.. ABSENT: oriented to person, oriented to place, oriented to time, oriented to situation Psychiatric exam: PRESENT: other Focused psych exam: PRESENT: restlessness Skin exam: PRESENT: dry, intact, warm. ABSENT: cyanosis, rash Results Laboratory Results: 10/31/16 10/31/16 08:09 08:09 Creatine Kinase 6465 H CK-MB (CK-2) 28.00 H Troponin I 1.790 Assessment & Plan - Diagnosis (1) Elevated troponin Is this a current diagnosis for this admission?: YesPlan: The patient is unable to give any history because of her psychosis. Patient has had previous similar psychiatric issues but has never had elevated troponins. I'm concerned about the possibility of this representing an acute intracranial event and will get a stat head CT. If her head CT is unremarkable then we will treat this as an acute non-STEMI and treat with aspirin, beta shara, Lovenox. After getting the head CT will discuss about possible transfer. (2) Encephalopathy acute Is this a current diagnosis for this admission?: YesPlan: Has a history of having drug overdoses. (3) Rhabdomyolysis Qualifiers: Rhabdomyolysis type: non-traumatic Qualified Code(s): M62.82 - Rhabdomyolysis Is this a current diagnosis for this admission?: YesPlan: Patient's elevated CK as well as troponin. Continue with IV fluids. (4) Anemia Qualifiers: Anemia type: iron deficiency Iron deficiency anemia type: inadequate dietary iron intake Qualified Code(s): D50.8 - Other iron deficiency anemias Is this a current diagnosis for this admission?: Yes (5) History of Adriana-en-Y gastric bypass Is this a current diagnosis for this admission?: Yes (6) Hypertension Qualifiers: Hypertension type: unspecified secondary hypertension Qualified Code (s): I15.9 - Secondary hypertension, unspecified; I15 - Secondary hypertension Is this a current diagnosis for this admission?: Yes (7) Morbid obesity with BMI of 45.0-49.9, adult Is this a current diagnosis for this admission?: Yes (8) Obstructive sleep apnea Is this a current diagnosis for this admission?: Yes (9) Bipolar affective disorder Qualifiers: Active/Remission status: currently active Current bipolar episode type : mixed Current episode severity: severe Psychotic features: without psychotic features Qualified Code(s): F31.63 - Bipolar disorder, current episode mixed, severe, without psychotic features Is this a current diagnosis for this admission?: Yes - Time Time Spent with patient: 25-34 minutes - Inpatient Certification Medical Necessity: Need Close Monitoring Due to Risk of Patient Decompensation, Need For IV Fluids
--- NOTE | 2016-10-31 14:27 | EKG REPORT ---
SEVERITY:- OTHERWISE NORMAL ECG - SINUS TACHYCARDIA LOW VOLTAGE IN FRONTAL LEADS : Confirmed by: Jacob Arias 31-Oct-2016 14:26:09
[2016-10-31] MEDS: THIAMINE HCL 100 MG, FOLIC ACID 1 MG in NORMAL SALINE 50 ML IV SCH (15:27)
[2016-10-31] MEDS ORDERED: HEPARIN SOD (PORCINE) 1,000 UNIT/ML 10 ML VIAL IV PRN (15:38)
[2016-10-31] MEDS ORDERED: HEPARIN SOD (PORCINE) 1,000 UNIT/ML 10 ML VIAL IV ONE (15:38)
[2016-10-31 15:59] LABS: CREATINE KINASE MB 32.8 ng/mL (<4.55)
[2016-10-31 16:03] LABS: TROPONIN I 1.75 ng/mL
[2016-10-31] MEDS: METOPROLOL TARTRATE PF/INJ 5 MG/5 ML SDV IV SCH ×3 (16:15→16:54)
[2016-10-31] MEDS ORDERED: IPRATROPIUM/ALBUTEROL 0.5-2.5 MG/3 ML AMPUL NEB PRN (16:22)
[2016-10-31 16:31] LABS: ABSOLUTE BASOPHILS # (AUTO) 0.1 10^3/uL (0.0-0.2); ABSOLUTE LYMPHOCYTES (AUTO) 1.7 10^3/uL (0.5-4.7); ABSOLUTE MONOCYTES (AUTO) 1.4 10^3/uL (0.1-1.4); ABSOLUTE NEUT (AUTO) 9.6 10^3/uL (1.7-8.2); BASOPHILS % (AUTO) 0.4 % (0-2); EOSINOPHILS % (AUTO) 0.1 % (0-6); HEMATOCRIT 35.2 % (36.0-47.0); HEMOGLOBIN 11.1 g/dL (12.0-15.5); HGB HCT DIFFERENCE -1.9; MEAN CORPUSCULAR HEMOGLOBIN 24.3 pg (27.0-33.4); MEAN CORPUSCULAR HGB CONC 31.7 g/dL (32.0-36.0); MEAN CORPUSCULAR VOLUME 77 fl (80-97); MONOCYTES % (AUTO) 11.3 % (3-13); RED BLOOD COUNT 4.59 10^6/uL (3.72-5.28); RED CELL DISTRIBUTION WIDTH 17.7 % (11.5-14.0); SEGMENTED NEUTROPHILS % (AUTO) 75.2 % (42-78); WHITE BLOOD COUNT 12.8 10^3/uL (4.0-10.5)
[2016-10-31 16:38] LABS: PROTHROMBIN TIME 15.2 SEC (11.4-15.4)
[2016-10-31 16:39] LABS: PARTIAL THROMBOPLASTIN TIME 34.4 SEC (23.5-35.8)
--- NOTE | 2016-10-31 17:26 | PDOC TRANSFER SUMMARY ---
General Admission Date/PCP: 10/31/16 03:49 Transfer Date: 10/31/16 Accepting Facility: [facility] Accepting Physician: Dr. parra Resuscitation Status: Full Code - Transfer Diagnosis (1) Elevated troponin Is this a current diagnosis for this admission?: YesDiagnosis Summary: Probably represents a non-STEMI. The patient is agitated and is unable to complain of pain (2) Encephalopathy acute Is this a current diagnosis for this admission?: YesDiagnosis Summary: Most likely secondary to baclofen ingestion. (3) Rhabdomyolysis Is this a current diagnosis for this admission?: Yes (4) Anemia Is this a current diagnosis for this admission?: Yes (5) History of Adriana-en-Y gastric bypass Is this a current diagnosis for this admission?: Yes (6) Hypertension Is this a current diagnosis for this admission?: Yes (7) Morbid obesity with BMI of 45.0-49.9, adult Is this a current diagnosis for this admission?: Yes (8) Obstructive sleep apnea Is this a current diagnosis for this admission?: Yes (9) Bipolar affective disorder Is this a current diagnosis for this admission?: Yes - Transfer Medications Home Medications: Aripiprazole [Abilify 2 mg Tablet] 2 mg PO DAILY 10/31/16 Baclofen [Baclofen 20 Mg Tablet] 20 mg PO TID 10/31/16 Desvenlafaxine Succinate [Pristiq ER] 50 mg PO DAILY 10/31/16 Eszopiclone [Lunesta] 6 mg PO QHS 10/31/16 Ondansetron HCl [Zofran 4 mg Tablet] 1 tab PO Q8HP PRN 10/31/16 Pregabalin [Lyrica] 200 mg PO Q8 10/31/16 Tizanidine HCl [Zanaflex 4 Mg Tablet] 4 mg PO Q8HP PRN 10/31/16 Transfer Medications: Current Medications Acetaminophen (Tylenol 650 Mg Supp) 650 mg MO Q4HP PRN PRN Reason: FEVER >101 Stop: 11/30/16 03:48 Albuterol/Ipratropium (Duoneb 3 Ml Ampul) 3 ml NEB RTQ6HP PRN Stop: 11/30/16 16:21 Dextrose (Dextrose Inj 50% Syringe (25 Gm/50 Ml)) 12.5 gm IV PRN PRN; Protocol PRN Reason: FOR BG 50-69 IN ALERT PATIENT Stop: 11/30/16 03:56 Dextrose (Dextrose Inj 50% Syringe (25 Gm/50 Ml)) 25 gm IV PRN PRN PRN Reason: Protocol Stop: 11/30/16 03:56 Glucagon (Glucagen Inj 1 Mg Vial) 1 mg IM PRN PRN; Protocol PRN Reason: Evaluate for BG < 70 Stop: 11/30/16 03:56 Glucose (Glutose 40% Gel 15 Gm Tube) 15 gm PO PRN PRN; Protocol PRN Reason: FOR BG 50-69 IN ALERT PATIENT Stop: 11/30/16 03:56 Glucose (Glutose 40% Gel 15 Gm Tube) 30 gm PO PRN PRN; Protocol PRN Reason: FOR BG < 50 IN ALERT PATIENT Stop: 11/30/16 03:56 Heparin Sodium (Porcine) (Heparin Inj 1,000 Unit/Ml 10 Ml Vial) 0 - 12,000 unit IV .BOLUS PER PROTOCOL PRN; Protocol PRN Reason: RESPOND TO aPTT VALUE Stop: 11/30/16 15:37 Thiamine HCl 100 mg/ Folic (Acid 1 mg/ Sodium Chloride) 51.2 mls @ 100 mls/hr IV DAILY BERE Stop: 11/30/16 03:59 Last Admin: 10/31/16 15:27 Dose: Not Given Heparin Sodium/Dextrose (Heparin Rtu 25,000 Unit/250 Ml D5w Premix) 250 mls @ 0 mls/hr IV CONTINUOUS PRN; Protocol; Titrate PRN Reason: THIS MED IS NOT "PRN" Stop: 11/30/16 15:37 Insulin Human Lispro (Humalog Insulin 100 Unit/1 Ml 3 Ml Vial) 0 - 12 unit SUBCUT Q6HP PRN PRN Reason: Protocol Stop: 11/30/16 03:56 Metoprolol Tartrate (Lopressor Inj/Pf 5 Mg/5 Ml Sdv) 5 mg IV Q6HP PRN PRN Reason: sbp>160 Stop: 11/30/16 03:48 Ondansetron HCl (Zofran Inj/Pf 4 Mg/2 Ml Sdv) 4 mg IV Q8HP PRN PRN Reason: FOR NAUSEA/VOMITING Stop: 11/30/16 03:48 - Allergies Allergies/Adverse Reactions: morphine [Morphine] Allergy (Severe, Verified 09/13/16 11:16) VOMITING trazodone [Trazodone] Allergy (Severe, Verified 09/13/16 11:16) codeine [Codeine] Allergy (Intermediate, Verified 09/13/16 11:16) cinnamon [Cinnamon] Allergy (Unknown, Verified 09/13/16 11:16) Swelling of Throat metformin HCl [From Glucophage] Allergy (Verified 09/13/16 11:16) Sulfa (Sulfonamide Antibiotics) Allergy (Verified 09/13/16 11:16) - Diet/Activity Discharge Diet: Other (Comments) - Nothing by mouth Discharge Activity: Bedrest Hospital Course Hospital Course: 41-year-old female with bipolar disorder and has had multiple episodes of admissions for overdose of medications usually baclofen. She becomes agitated when this happens. Patient has in the past also required intubation because of this. She's had multiple inpatient psychiatric admissions. The patient when she presented was noted have an elevated CK. Troponins were drawn and she is noted have an elevated MB along with an elevated troponin. I was initially concerned that this may represent an intracranial event and head CT was done which showed no evidence for any type of abnormalities. It's most likely felt to represent an acute non-STEMI. She was started on aspirin, Lopressor IV, heparin drip. I discussed the case with Dr. Parra, hospitalist at [facility] who graciously agrees to accept the patient transfer. When her mental status improves she would benefit from a cardiac catheterization to define whether or not she has any coronary artery disease as cause for her elevated troponins. The patient has required restraints because of her agitation. Physical Exam Vital Signs: Temp Pulse Resp BP Pulse Ox 98.4 F 138 H 24 H 116/92 H 98 10/30/16 06:28 10/31/16 08:42 10/31/16 12:49 10/31/16 12:49 10/31/16 12:01 General appearance: PRESENT: mild distress Eye exam: PRESENT: conjunctiva pink. ABSENT: scleral icterus Ear exam: PRESENT: normal external ear exam Mouth exam: PRESENT: moist, tongue midline Neck exam: ABSENT: JVD Respiratory exam: PRESENT: clear to auscultation geetha. ABSENT: rales, rhonchi, wheezes Cardiovascular exam: PRESENT: RRR. ABSENT: diastolic murmur, rubs, systolic murmur Pulses: PRESENT: normal dorsalis pedis pul Vascular exam: PRESENT: normal capillary refill GI/Abdominal exam: PRESENT: normal bowel sounds, soft. ABSENT: distended, guarding, mass, organolmegaly, rebound, tenderness Extremities exam: PRESENT: full ROM. ABSENT: calf tenderness, clubbing, pedal edema Neurological exam: PRESENT: other - Agitated but moving all 4 extremity. She will not cooperate for a neurological exam Psychiatric exam: PRESENT: agitated Skin exam: PRESENT: dry, intact, warm. ABSENT: cyanosis, rash Results Laboratory Results: 10/31/16 16:25 10/31/16 16:25 WBC 12.8 H RBC 4.59 Hgb 11.1 L Hct 35.2 L MCV 77 L MCH 24.3 L MCHC 31.7 L RDW 17.7 H Plt Count 195 Seg Neutrophils % 75.2 Lymphocytes % 13.0 Monocytes % 11.3 Eosinophils % 0.1 Basophils % 0.4 Absolute Neutrophils 9.6 H Absolute Lymphocytes 1.7 Absolute Monocytes 1.4 Absolute Eosinophils 0.0 Absolute Basophils 0.1 10/31/16 10/31/16 10/31/16 08:09 08:09 15:10 Creatine Kinase 6465 H 7273 H CK-MB (CK-2) 28.00 H Troponin I 1.790 10/31/16 15:10 Creatine Kinase CK-MB (CK-2) 32.80 H Troponin I 1.750 Impressions: Head CT 10/31/16 00:00 IMPRESSION: No acute intracranial abnormality identified. No significant change. Plan Discharge Plan: Patient will be discharged [facility] for further evaluation including probable cardiac catheterization when a bed becomes available. Dr. Parra is the accepting physician. Time Spent: Greater than 30 Minutes
[2016-10-31] MEDS: HEPARIN SODIUM,PORCINE/D5W 250 ML IV PRN (18:00)
[2016-10-31 22:10] LABS: CREATINE KINASE MB 37.3 ng/mL (<4.55)
[2016-10-31 22:15] LABS: TROPONIN I 1.64 ng/mL
[2016-11-01 01:26] LABS: APPEARANCE,URINE CLOUDY; BILIRUBIN,URINE NEGATIVE (NEGATIVE); GLUCOSE, URINE NEGATIVE (NEGATIVE); KETONES,URINE 20 mg/dL (NEGATIVE); LEUKOCYTE ESTERASE,URINE LARGE (NEGATIVE); NITRITE,URINE NEGATIVE (NEGATIVE); PROTEIN,URINE 30 mg/dL (NEGATIVE); URINE SPECIFIC GRAVITY 1.025; UROBILINOGEN,URINE NEGATIVE mg/dL (<2.0)
[2016-11-01 01:50] LABS: URINE BARBITURATES SCREEN NEGATIVE; URINE METHADONE SCREEN NEGATIVE; URINE OPIATES LOW NEGATIVE; URINE PHENCYCLIDINE SCREEN NEGATIVE
[2016-11-01 08:29] LABS: ALANINE AMINOTRANSFERASE 82 U/L (9-52); ALBUMIN 3.2 g/dL (3.5-5.0); ALKALINE PHOSPHATASE 76 U/L (38-126); ANION GAP 10 (5-19); ASPARTATE AMINO TRANSFERASE 321 U/L (14-36); BILIRUBIN,TOTAL 0.8 mg/dL (0.2-1.3); BLOOD UREA NITROGEN 11 mg/dL (7-20); CALCIUM 8.7 mg/dL (8.4-10.2); CARBON DIOXIDE 24 mmol/L (22-30); CHLORIDE 109 mmol/L (98-107); CREATININE RESULT 0.45 mg/dL (0.52-1.25); GLUCOSE 80 mg/dL (75-110); POTASSIUM 3.5 mmol/L (3.6-5.0); SODIUM 143.4 mmol/L (137-145); TOTAL PROTEIN 5.6 g/dL (6.3-8.2)
[2016-11-01 08:44] LABS: HEMATOCRIT 35.4 % (36.0-47.0); HEMOGLOBIN 11.3 g/dL (12.0-15.5); HGB HCT DIFFERENCE -1.5; MEAN CORPUSCULAR HEMOGLOBIN 24.7 pg (27.0-33.4); MEAN CORPUSCULAR HGB CONC 32.1 g/dL (32.0-36.0); MEAN CORPUSCULAR VOLUME 77 fl (80-97); RED BLOOD COUNT 4.58 10^6/uL (3.72-5.28); RED CELL DISTRIBUTION WIDTH 17.7 % (11.5-14.0); WHITE BLOOD COUNT 8.2 10^3/uL (4.0-10.5)
[2016-11-01 08:59] LABS: PROTHROMBIN TIME 14.5 SEC (11.4-15.4)
[2016-11-01 09:00] LABS: PARTIAL THROMBOPLASTIN TIME 61.2 SEC (23.5-35.8)
[2016-11-01] MEDS: THIAMINE HCL 100 MG, FOLIC ACID 1 MG in NORMAL SALINE 50 ML IV SCH (09:45)
--- NOTE | 2016-11-01 09:52 | PDOC PROGRESS REPORT ---
Subjective Progress Note for:: 11/01/16 Subjective:: Patient is more alert this morning. She is able to answer questions. She reports that she took extra Lunesta which is the cause for her altered mental status. She denies have any chest pain. She asked if she can have breakfast. Physical Exam Vital Signs: Temp Pulse Resp BP Pulse Ox 97.5 F 98 20 112/69 98 11/01/16 07:57 11/01/16 07:57 11/01/16 07:57 11/01/16 07:57 11/01/16 07:57 Intake & Output 10/31/16 11/01/16 11/02/16 06:59 06:59 06:59 Intake Total 996 Output Total 200 Balance 796 Weight 117.6 kg General appearance: PRESENT: no acute distress Eye exam: PRESENT: conjunctiva pink. ABSENT: scleral icterus Mouth exam: PRESENT: moist, tongue midline Neck exam: PRESENT: JVD Respiratory exam: PRESENT: clear to auscultation geetha. ABSENT: rales, rhonchi, wheezes Cardiovascular exam: PRESENT: tachycardia. ABSENT: diastolic murmur, rubs, systolic murmur Vascular exam: PRESENT: normal capillary refill GI/Abdominal exam: PRESENT: normal bowel sounds, soft. ABSENT: distended, guarding, mass, organolmegaly, rebound, tenderness Extremities exam: ABSENT: calf tenderness, clubbing, pedal edema Neurological exam: PRESENT: alert, awake, oriented to person, oriented to place , oriented to time, oriented to situation, CN II-XII grossly intact. ABSENT: motor sensory deficit Psychiatric exam: PRESENT: flat affect Skin exam: PRESENT: dry, intact, warm. ABSENT: cyanosis, rash Results Laboratory Results: 11/01/16 08:26 11/01/16 07:53 10/31/16 11/01/16 11/01/16 16:25 01:05 07:53 WBC 12.8 H RBC 4.59 Hgb 11.1 L Hct 35.2 L MCV 77 L MCH 24.3 L MCHC 31.7 L RDW 17.7 H Plt Count 195 Seg Neutrophils % 75.2 Lymphocytes % 13.0 Monocytes % 11.3 Eosinophils % 0.1 Basophils % 0.4 Absolute Neutrophils 9.6 H Absolute Lymphocytes 1.7 Absolute Monocytes 1.4 Absolute Eosinophils 0.0 Absolute Basophils 0.1 Sodium 143.4 Potassium 3.5 L Chloride 109 H Carbon Dioxide 24 Anion Gap 10 BUN 11 Creatinine 0.45 L Est GFR ( Amer) > 60 Est GFR (Non-Af Amer) > 60 Glucose 80 Calcium 8.7 Total Bilirubin 0.8 AST 321 H ALT 82 H Alkaline Phosphatase 76 Total Protein 5.6 L Albumin 3.2 L Urine Color YELLOW Urine Appearance CLOUDY Urine pH 5.0 Ur Specific [place] 1.025 Urine Protein 30 H Urine Glucose (UA) NEGATIVE Urine Ketones 20 H Urine Blood MODERATE H Urine Nitrite NEGATIVE Ur Leukocyte Esterase LARGE H Urine WBC (Auto) >182 Urine RBC (Auto) 32 11/01/16 08:26 WBC 8.2 RBC 4.58 Hgb 11.3 L Hct 35.4 L MCV 77 L MCH 24.7 L MCHC 32.1 RDW 17.7 H Plt Count 179 Seg Neutrophils % Lymphocytes % Monocytes % Eosinophils % Basophils % Absolute Neutrophils Absolute Lymphocytes Absolute Monocytes Absolute Eosinophils Absolute Basophils Sodium Potassium Chloride Carbon Dioxide Anion Gap BUN Creatinine Est GFR ( Amer) Est GFR (Non-Af Amer) Glucose Calcium Total Bilirubin AST ALT Alkaline Phosphatase Total Protein Albumin Urine Color Urine Appearance Urine pH Ur Specific [place] Urine Protein Urine Glucose (UA) Urine Ketones Urine Blood Urine Nitrite Ur Leukocyte Esterase Urine WBC (Auto) Urine RBC (Auto) 10/31/16 10/31/16 10/31/16 08:09 08:09 15:10 Creatine Kinase 6465 H 7273 H CK-MB (CK-2) 28.00 H Troponin I 1.790 10/31/16 10/31/16 10/31/16 15:10 21:22 21:22 Creatine Kinase 6452 H CK-MB (CK-2) 32.80 H 37.30 H Troponin I 1.750 1.640 Impressions: Head CT 10/31/16 00:00 IMPRESSION: No acute intracranial abnormality identified. No significant change. Assessment & Plan - Diagnosis (1) Elevated troponin Is this a current diagnosis for this admission?: YesPlan: The patient is more alert today and she denies ever having any chest pain. She reports that she took extra Lunesta the cause for her psychiatric issues. The patient denies any chest pain this morning. We are waiting transfer to [facility] for further cardiac evaluation. Given the positive troponins this patient would benefit from a cardiac catheterization. (2) Encephalopathy acute Is this a current diagnosis for this admission?: YesPlan: Has a history of having drug overdoses. Patient this morning is awake and alert and able to report that she took extra Lunesta as the cause for her symptoms. (3) Rhabdomyolysis Qualifiers: Rhabdomyolysis type: non-traumatic Qualified Code(s): M62.82 - Rhabdomyolysis Is this a current diagnosis for this admission?: YesPlan: Patient's elevated CK as well as troponin. Continue with IV fluids. (4) Anemia Qualifiers: Anemia type: iron deficiency Iron deficiency anemia type: inadequate dietary iron intake Qualified Code(s): D50.8 - Other iron deficiency anemias Is this a current diagnosis for this admission?: Yes (5) History of Adriana-en-Y gastric bypass Is this a current diagnosis for this admission?: Yes (6) Hypertension Qualifiers: Hypertension type: unspecified secondary hypertension Qualified Code (s): I15.9 - Secondary hypertension, unspecified; I15 - Secondary hypertension Is this a current diagnosis for this admission?: Yes (7) Morbid obesity with BMI of 45.0-49.9, adult Is this a current diagnosis for this admission?: Yes (8) Obstructive sleep apnea Is this a current diagnosis for this admission?: Yes (9) Bipolar affective disorder Qualifiers: Active/Remission status: currently active Current bipolar episode type : mixed Current episode severity: severe Psychotic features: without psychotic features Qualified Code(s): F31.63 - Bipolar disorder, current episode mixed, severe, without psychotic features Is this a current diagnosis for this admission?: Yes (10) Sinus tachycardia Is this a current diagnosis for this admission?: YesPlan: We'll start the patient on scheduled Lopressor by mouth. (11) UTI (urinary tract infection) Qualifiers: Urinary tract infection type: acute cystitis Hematuria presence: without hematuria Qualified Code(s): N30.00 - Acute cystitis without hematuria Is this a current diagnosis for this admission?: YesPlan: We'll start on Rocephin. - Time Time Spent with patient: 25-34 minutes - Inpatient Certification Medical Necessity: Need Close Monitoring Due to Risk of Patient Decompensation, Need For IV Fluids - Plan Summary Plan Summary: Awaiting on transferred to [facility] for further cardiac evaluation.
[2016-11-01] MEDS ORDERED: CEFTRIAXONE 1 GM/D5W RTU 50 ML IV SCH (10:00)
[2016-11-01] MEDS ORDERED: METOPROLOL TARTRATE 50 MG TABLET PO SCH (10:00)
[2016-11-01] MEDS ORDERED: ACETAMINOPHEN 325 MG TABLET ONE (16:58)
[2016-11-01] MEDS: HEPARIN SODIUM,PORCINE/D5W 250 ML IV PRN (17:02)
[2016-11-01 17:52] VITALS: BP 102/54
== END 2016-11-01 20:08 | disposition short-term general hospital (02) | DRG 91 ==
LOC: ER 06:13 → EH 10-31 03:49 → UNDOADMIN 10-31 03:56 → 3W 10-31 14:06
PROVIDERS: ADMIT Internal Medicine; ATTEND Internal Medicine
PROC: 3E0F73Z Introduction of Anti-inflammatory into Respiratory Tract, Via Natural or Artificial Opening (ICD-10-PCS; principal; 2016-10-31)
DX: G92 Toxic encephalopathy (principal); I21.4 Non-ST elevation (NSTEMI) myocardial infarction; M62.82 Rhabdomyolysis; E87.0 Hyperosmolality and hypernatremia; Z68.42 Body mass index [BMI] 45.0-49.9, adult; F31.63 Bipolar disorder, current episode mixed, severe, without psychotic features; N30.00 Acute cystitis without hematuria; T50.904A Poisoning by unspecified drugs, medicaments and biological substances, undetermined, initial encounter; I10 Essential (primary) hypertension; E66.01 Morbid (severe) obesity due to excess calories; G47.33 Obstructive sleep apnea (adult) (pediatric); G89.29 Other chronic pain; J45.909 Unspecified asthma, uncomplicated; M19.90 Unspecified osteoarthritis, unspecified site; G43.909 Migraine, unspecified, not intractable, without status migrainosus; D50.8 Other iron deficiency anemias; Z78.1 Physical restraint status; Z98.84 Bariatric surgery status; Z79.899 Other long term (current) drug therapy; Z88.6 Allergy status to analgesic agent; Z88.8 Allergy status to other drugs, medicaments and biological substances; Z88.2 Allergy status to sulfonamides
CPT/HCPCS: 36415; 70450; 80053; 80307; 81001; 82550; 82553; 82962; 83036; 84100; 84484; 84703; 85025; 85027; 85610; 85730; 93005; 93010; 94640; 96361; 96372; 96374; 96376; 99285; J0696; J1644; J2060; J3360; J3411; J3480; J3490; J7030; J7620

== ENCOUNTER → 2017-04-16 | Day surgery (SDC) | payer MEDICARE, MEDICAID ==
--- NOTE | 2017-04-16 11:58 | RADIOLOGY REPORT (SQ) ---
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 A ti meout was performed to confirm the procedure and patient's identity. The skin of the neck was preppe d and draped in sterile fashion and 1 mL of 1% lidocaineadministered for local anesthesia. Under son ographic guidance, fine needle aspiration biopsy was performed of the mass in the left lobe of the th yroid. Two separate aspirations were performed. Specimens were received by Marielena from cytology. She state d that 2 passes were adequate. Hemostasis was obtained with direct manual compression. There were n o immediate complications. LIMITATIONS: None. FINDINGS: PATHOLOGY: Pending. IMPRESSION: ULTRASOUND-GUIDED BIOPSY PERFORMED OF A MASS IN THE LEFT LOBE OF THE THYROID. PATHOLOGY PENDING AT THE TIME OF DICTATION. COMMENT: Patient medication list reviewed: Yes- Quality ID# [id number]:Eligible professional attests to doc umenting in the medical record they obtained, updated, or reviewed the patient's current medications. TECHNICAL DOCUMENTATION: JOB ID: [id number] [employer]- All Rights Reserved
== END ==
LOC: RAD 08:38
PROVIDERS: ATTEND Otolaryngology
PROC: 0GBG3ZX Excision of Left Thyroid Gland Lobe, Percutaneous Approach, Diagnostic (ICD-10-PCS; principal; 2017-04-16)
DX: E04.1 Nontoxic single thyroid nodule (principal)
CPT/HCPCS: 60100; 88173

== ENCOUNTER 2018-02-13 11:40 | Inpatient (IN) | payer MEDICAID, MEDICARE ==
[2018-02-13] MEDS ORDERED: ONDANSETRON 4 MG TAB.RAPDIS PO ONE (12:25)
[2018-02-13] MEDS ORDERED: NORMAL SALINE 1000 ML 1,000 ML IV ONE ×2 (12:25→15:23)
--- NOTE | 2018-02-13 12:27 | ER Document Report ---
ED Medical Screen (RME) - General Chief Complaint: Nausea/Vomiting Stated Complaint: NUMBNESS Time Seen by Provider: 02/13/18 12:24 Mode of Arrival: Wheelchair Information source: Patient, Relative TRAVEL OUTSIDE OF THE [place] IN LAST 30 DAYS: No - HPI Patient complains to provider of: facial numbness, dehydration, vomiting Onset: Yesterday - pt with onset of N/V with facial and L arm numbness starting earlier today. Also feels dehydrated. - Related Data Allergies/Adverse Reactions: morphine [Morphine] Allergy (Severe, Verified 02/13/18 11:58) VOMITING trazodone [Trazodone] Allergy (Severe, Verified 02/13/18 11:58) codeine [Codeine] Allergy (Intermediate, Verified 02/13/18 11:58) cinnamon [Cinnamon] Allergy (Unknown, Verified 02/13/18 11:58) Swelling of Throat metformin HCl [From Glucophage] Allergy (Verified 02/13/18 11:58) Sulfa (Sulfonamide Antibiotics) Allergy (Verified 02/13/18 11:58) Past Medical History - Social History Chew tobacco use (# tins/day): No Frequency of alcohol use: Occasional Drug Abuse: None - Past Medical History Cardiac Medical History: Reports: Hx Hypertension Denies: Hx Coronary Artery Disease, Hx Heart Attack Pulmonary Medical History: Reports: Hx Asthma, Hx Pneumonia, Hx Sleep Apnea Denies: Hx Bronchitis, Hx COPD Neurological Medical History: Reports: Hx Migraine. Denies: Hx Cerebrovascular Accident, Hx Seizures Renal/ Medical History: Denies: Hx Peritoneal Dialysis GI Medical History: Denies: Hx Hepatitis, Hx Hiatal Hernia, Hx Ulcer Musculoskeltal Medical History: Reports Hx Arthritis Psychiatric Medical History: Reports: Hx Anxiety, Hx Bipolar Disorder, Hx Depression Infectious Medical History: Denies: Hx Hepatitis Past Surgical History: Reports: Hx Abdominal Surgery - GBP, Hx Adenoidectomy - 3 TIMES REMOVED, Hx Gastric Bypass Surgery, Hx Tonsillectomy - 3 TIMES REMOVED. Denies: Hx Mastectomy, Hx Open Heart Surgery, Hx Pacemaker - Immunizations Hx Diphtheria, Pertussis, Tetanus Vaccination: - unk Physical Exam - Vital signs Vitals: Temp Pulse Resp BP Pulse Ox 98.3 F 116 H 22 H 147/99 H 98 02/13/18 11:56 02/13/18 11:56 02/13/18 11:56 08/10/18 11:56 02/13/18 11:56 Course - Vital Signs Vital signs: Temp Pulse Resp BP Pulse Ox 98.3 F 116 H 22 H 147/99 H 98 02/13/18 11:56 02/13/18 11:56 02/13/18 11:56 02/13/18 11:56 02/13/18 11:56
[2018-02-13 13:04] LABS: ABSOLUTE LYMPHOCYTES (AUTO) 0.3 10^3/uL (0.5-4.7); ABSOLUTE MONOCYTES (AUTO) 0.3 10^3/uL (0.1-1.4); ABSOLUTE NEUT (AUTO) 3.5 10^3/uL (1.7-8.2); BASOPHILS % (AUTO) 0.3 % (0-2); EOSINOPHILS % (AUTO) 0.8 % (0-6); HEMATOCRIT 32.1 % (36.0-47.0); HEMOGLOBIN 9.8 g/dL (12.0-15.5); MEAN CORPUSCULAR HEMOGLOBIN 21.9 pg (27.0-33.4); MEAN CORPUSCULAR HGB CONC 30.5 g/dL (32.0-36.0); MEAN CORPUSCULAR VOLUME 72 fl (80-97); MONOCYTES % (AUTO) 7.3 % (3-13); PLATELET COUNT 137 10^3/uL (150-450); RED BLOOD COUNT 4.48 10^6/uL (3.72-5.28); RED CELL DISTRIBUTION WIDTH 22.5 % (11.5-14.0); SEGMENTED NEUTROPHILS % (AUTO) 83.6 % (42-78); TOTAL CELLS COUNTED % (AUTO) 100 %; WHITE BLOOD COUNT 4.2 10^3/uL (4.0-10.5)
--- NOTE | 2018-02-13 13:24 | RADIOLOGY REPORT (SQ) ---
EXAM DESCRIPTION: CT HEAD WITHOUT COMPLETED DATE/TIME: 02/13/2018 1:03 pm REASON FOR STUDY: facial numbness COMPARISON: 10/31/2016. TECHNIQUE: Axial images acquired through the brain without intravenous contrast. Images reviewed wi th bone, brain and subdural windows. Additional sagittal and coronal reconstructions were generated. Images stored on PACS. All CT scanners at this facility use dose modulation, iterative reconstruction, and/or weight based d osing when appropriate to reduce radiation dose to as low as reasonably achievable (ALARA). [facility]: Dose Right [facility]: CareDose [facility]: Dose Right [facility]: Teradose 4D [facility]: Fanatics RADIATION DOSE: CT Rad equipment meets quality standard of care and radiation dose reduction techniq ues were employed. CTDIvol: 53.2 mGy. DLP: 1070 mGy-cm. mGy. LIMITATIONS: None. FINDINGS: VENTRICLES: Normal size and contour. CEREBRUM: No masses. No hemorrhage. No midline shift. No evidence for acute infarction. Normal gra y/white matter differentiation. No areas of low density in the white matter. CEREBELLUM: No masses. No hemorrhage. No alteration of density. No evidence for acute infarction. EXTRAAXIAL SPACES: No fluid collections. No masses. ORBITS AND GLOBE: No intra- or extraconal masses. Normal contour of globe without masses. CALVARIUM: No fracture. PARANASAL SINUSES: No fluid or mucosal thickening. SOFT TISSUES: No mass or hematoma. OTHER: No other significant finding. IMPRESSION: NORMAL BRAIN CT WITHOUT CONTRAST. EVIDENCE OF ACUTE STROKE: NO. COMMENT: Quality ID # [id number]: Final reports with documentation of one or more dose reduction techniques (e.g., Automated exposure control, adjustment of the mA and/or kV according to patient size, use of iterative reconstruction technique) TECHNICAL DOCUMENTATION: JOB ID: [id number] [employer]- All Rights Reserved Reading location - IP/workstation name: [email or web address]
[2018-02-13 13:27] LABS: ALANINE AMINOTRANSFERASE 81 U/L (9-52); ALKALINE PHOSPHATASE 116 U/L (38-126); ANION GAP 14 (5-19); ASPARTATE AMINO TRANSFERASE 131 U/L (14-36); BILIRUBIN,DIRECT 0.4 mg/dL (0.0-0.4); BILIRUBIN,TOTAL 1.6 mg/dL (0.2-1.3); BLOOD UREA NITROGEN 11 mg/dL (7-20); CARBON DIOXIDE 28 mmol/L (22-30); CHLORIDE 95 mmol/L (98-107); GLUCOSE 99 mg/dL (75-110); POTASSIUM 3.4 mmol/L (3.6-5.0); TOTAL PROTEIN 7.1 g/dL (6.3-8.2)
[2018-02-13 14:41] LABS: APPEARANCE,URINE CLOUDY; BILIRUBIN,URINE SMALL (NEGATIVE); GLUCOSE, URINE NEGATIVE (NEGATIVE); KETONES,URINE 20 mg/dL (NEGATIVE); LEUKOCYTE ESTERASE,URINE LARGE (NEGATIVE); NITRITE,URINE NEGATIVE (NEGATIVE); PROTEIN,URINE 100 mg/dL (NEGATIVE); URINE SPECIFIC GRAVITY 1.029
[2018-02-13 14:42] LABS: COLOR,URINE DARK YELLOW
[2018-02-13 15:04] LABS: LIPASE 1064.1 U/L (23-300)
[2018-02-13] MEDS ORDERED: ACETAMINOPHEN 325 MG TABLET PO ONE (15:42)
[2018-02-13] MEDS ORDERED: ONDANSETRON HCL INJ/PF 4 MG/2 ML SDV IV ONE (15:42)
--- NOTE | 2018-02-13 17:19 | RADIOLOGY REPORT (SQ) ---
EXAM DESCRIPTION: U/S ABDOMEN LIMITED W/O DOP COMPLETED DATE/TIME: 02/13/2018 5:03 pm REASON FOR STUDY: vomiting, elevated lipase COMPARISON: None. TECHNIQUE: Dynamic and static grayscale images acquired of the abdomen and recorded on PACS. Chono yunior selected color Doppler and spectral images recorded. LIMITATIONS: None. FINDINGS: PANCREAS: Poorly seen. LIVER: 18.1 cm. Increased echogenicity. LIVER VASCULATURE: Normal directional flow of the main portal vein and hepatic veins. GALLBLADDER: No stones. ULTRASOUND-DETECTED DESAI'S SIGN: Positive. INTRAHEPATIC DUCTS AND COMMON DUCT: CBD and intrahepatic ducts normal caliber. No filling defects. INFERIOR VENA CAVA: Not imaged. AORTA: No aneurysm. The distal aorta could not be seen. RIGHT KIDNEY: Normal size, 10.4 cm. Normal echogenicity. No solid or suspicious masses. No hydroneph rosis. No calcifications. PERITONEAL AND RIGHT PLEURAL SPACE: No ascites or effusions. OTHER: No other significant findings. IMPRESSION: Hepatomegaly. Fatty infiltration of the liver. Positive sonographic Desai sign. No g allstones. TECHNICAL DOCUMENTATION: JOB ID: [id number] [employer]- All Rights Reserved Reading location - IP/workstation name: [email or web address]
[2018-02-13] MEDS ORDERED: NORMAL SALINE 1000 ML 1,000 ML IV PRN (17:58)
--- NOTE | 2018-02-13 17:58 | ER Document Report ---
ED General - General Chief Complaint: Nausea/Vomiting Stated Complaint: NUMBNESS Time Seen by Provider: 02/13/18 12:24 Mode of Arrival: Wheelchair Information source: Patient Notes: Patient states that yesterday she developed a headache around 2 PM. Patient reports that she has had nausea and vomiting for the past 4 days. Patient reports intermittent right upper quadrant abdominal pain off and on chronically that she attributes to her gastric bypass although symptoms seem to worsen over the past several months. Patient states that she had some left arm numbness and tingling sensation that went to her left side of her head and neck. Patient states she did have some spots to her vision although her vision has now cleared. Patient states that she had the arm and facial paresthesia start today around 930 and has been intermittent. Patient states that she did drink alcohol prior to the onset of the vomiting symptoms. When she started to have vomiting with abdominal tenderness she stopped drinking alcohol. Patient does wear corrective contact lenses and had a recent visual acuity exam about 3 months ago. TRAVEL OUTSIDE OF THE [place] IN LAST 30 DAYS: No - HPI Onset: Other Onset/Duration: Waxing and waning Quality of pain: Achy Pain Level: 3 Associated symptoms: Headache, Nausea, Vomiting. denies: Chest pain, Nonproductive cough, Productive cough, Fever, Shortness of breath Exacerbated by: Denies Relieved by: Denies Similar symptoms previously: No Recently seen / treated by doctor: No - Related Data Allergies/Adverse Reactions: morphine [Morphine] Allergy (Severe, Verified 02/13/18 11:58) VOMITING trazodone [Trazodone] Allergy (Severe, Verified 02/13/18 11:58) codeine [Codeine] Allergy (Intermediate, Verified 02/13/18 11:58) cinnamon [Cinnamon] Allergy (Unknown, Verified 02/13/18 11:58) Swelling of Throat metformin HCl [From Glucophage] Allergy (Verified 02/13/18 11:58) Sulfa (Sulfonamide Antibiotics) Allergy (Verified 02/13/18 11:58) Past Medical History - General Information source: Patient, Relative - Social History Smoking Status: Former Smoker Chew tobacco use (# tins/day): No Frequency of alcohol use: Occasional Drug Abuse: None Occupation: None Lives with: Family Family History: Reviewed & Not Pertinent, Other Patient has suicidal ideation: No Patient has homicidal ideation: No - Past Medical History Cardiac Medical History: Reports: Hx Hypertension Denies: Hx Coronary Artery Disease, Hx Heart Attack Pulmonary Medical History: Reports: Hx Asthma, Hx Pneumonia, Hx Sleep Apnea Denies: Hx Bronchitis, Hx COPD Neurological Medical History: Reports: Hx Migraine. Denies: Hx Cerebrovascular Accident, Hx Seizures Renal/ Medical History: Denies: Hx Peritoneal Dialysis GI Medical History: Denies: Hx Hepatitis, Hx Hiatal Hernia, Hx Ulcer Musculoskeletal Medical History: Reports Hx Arthritis Psychiatric Medical History: Reports: Hx Anxiety, Hx Bipolar Disorder, Hx Depression Infectious Medical History: Denies: Hx Hepatitis Past Surgical History: Reports: Hx Abdominal Surgery - GBP, Hx Adenoidectomy - 3 TIMES REMOVED, Hx Gastric Bypass Surgery, Hx Tonsillectomy - 3 TIMES REMOVED. Denies: Hx Mastectomy, Hx Open Heart Surgery, Hx Pacemaker - Immunizations Hx Diphtheria, Pertussis, Tetanus Vaccination: - unk Hx Pneumococcal Vaccination: 07/07/12 Review of Systems - Review of Systems Constitutional: No symptoms reported. denies: Fever EENT: Blurred vision - Spots in vision at 930 today now resolved Cardiovascular: No symptoms reported. denies: Chest pain Respiratory: No symptoms reported. denies: Cough, Short of breath Gastrointestinal: Abdominal pain, Nausea, Vomiting. denies: Diarrhea Genitourinary: No symptoms reported. denies: Dysuria, Flank pain, Hematuria Female Genitourinary: No symptoms reported. denies: Musculoskeletal: No symptoms reported. denies: Back pain, Joint pain, Neck pain Skin: No symptoms reported. denies: Rash Hematologic/Lymphatic: No symptoms reported Neurological/Psychological: Headaches, Other - Paresthesia to the left side of face, neck and upper extremity intermittently since 930 today Physical Exam - Vital signs Vitals: Temp Pulse Resp BP Pulse Ox 98.3 F 116 H 22 H 147/99 H 98 02/13/18 11:56 02/13/18 11:56 02/13/18 11:56 02/13/18 11:56 02/13/18 11:56 - General General appearance: Appears well, Alert In distress: None - HEENT Head: Normocephalic, Atraumatic Eyes: Normal Conjunctiva: Normal Extraocular movements intact: Yes Eyelashes: Normal Pupils: PERRL Ears: Normal External canal: Normal Tympanic membrane: Other - right TM sclerotic Nasal: Normal Pharynx: Normal Neck: Normal, Supple. No: Lymphadenopathy, Meningismus - Respiratory Respiratory status: No respiratory distress Chest status: Nontender Breath sounds: Normal. No: Rales, Rhonchi, Stridor, Wheezing Chest palpation: Normal - Cardiovascular Rhythm: Regular Heart sounds: S1 appreciated, S2 appreciated Murmur: No - Abdominal Inspection: Morbidly Obese Distension: No distension Bowel sounds: Normal Tenderness: Tender - RUQ Organomegaly: Hepatomegaly - Back Back: Normal, Nontender. No: CVA tenderness, Vertebra tenderness - Extremities General upper extremity: Normal inspection, Nontender, Normal ROM General lower extremity: Normal inspection, Nontender, Normal ROM - Neurological Neuro grossly intact: Yes Cognition: Normal Orientation: AAOx4 Antlers Coma Scale Eye Opening: Spontaneous Antlers Coma Scale Verbal: Oriented Steffanie Coma Scale Motor: Obeys Commands Antlers Coma Scale Total: 15 Speech: Normal. No: Dysarthria Cranial nerves: Normal. No: Facial palsy, Tongue deviation Cerebellar coordination: Rapid alt. 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 No: Involuntary movements, Weakness , Hemiplegia Sensory: Normal. No: Altered light touch - Psychological Associated symptoms: Normal affect, Normal mood - Skin Skin Temperature: Warm Skin Moisture: Dry Skin Color: Normal Course - Re-evaluation Re-evalutation: 02/13/18 17:54 Patient denies any headache symptoms or paresthesia symptoms at this time. Discuss results of patient's ultrasound with her. Patient states nausea symptoms have improved. Patient is requesting oral fluids at this time. Consulted with Dr. rodríguez regarding patient presentation. Advises consultation with surgeon. Spoke with Dr. Betancourt who agrees to evaluate patient and advises having medicine admit for pancreatitis at this time. 02/13/18 17:[address] Corbin who agrees to accept patient for admission - Vital Signs Vital signs: Temp Pulse Resp BP Pulse Ox 98.4 F 102 H 19 130/70 H 98 02/13/18 18:28 02/13/18 18:28 02/13/18 18:28 02/13/18 19:28 02/13/18 18:28 - Laboratory Result Diagrams: 02/13/18 12:48 02/13/18 12:48 Laboratory results interpreted by me: 02/13/18 02/13/1802/13/18 12:48 12:48 12:48 Hgb 9.8 L Hct 32.1 L MCV 72 L MCH 21.9 L MCHC 30.5 L RDW 22.5 H Plt Count 137 L Seg Neutrophils % 83.6 H Lymphocytes % 8.0 L Absolute Lymphocytes 0.3 L Potassium 3.4 L Chloride 95 L Total Bilirubin 1.6 H AST 131 H ALT 81 H Lipase 1064.1 H Urine Protein Urine Ketones Urine Bilirubin Urine Urobilinogen Ur Leukocyte Esterase 02/13/18 13:56 Hgb Hct MCV MCH MCHC RDW Plt Count Seg Neutrophils % Lymphocytes % Absolute Lymphocytes Potassium Chloride Total Bilirubin AST ALT Lipase Urine Protein 100 H Urine Ketones 20 H Urine Bilirubin SMALL H Urine Urobilinogen 4.0 H Ur Leukocyte Esterase LARGE H 02/13/18 17:58 Labs- Entire Visit 02/13/18 02/13/18 02/13/18 12:48 12:48 12:48 WBC 4.2 RBC 4.48 Hgb 9.8 L Hct 32.1 L MCV 72 L MCH 21.9 L MCHC 30.5 L RDW 22.5 H Plt Count 137 L Seg Neutrophils % 83.6 H Lymphocytes % 8.0 L Monocytes % 7.3 Eosinophils % 0.8 Basophils % 0.3 Absolute Neutrophils 3.5 Absolute Lymphocytes 0.3 L Absolute Monocytes 0.3 Absolute Eosinophils 0.0 Absolute Basophils 0.0 Sodium 137.0 Potassium 3.4 L Chloride 95 L Carbon Dioxide 28 Anion Gap 14 BUN 11 Creatinine 0.62 Est GFR ( Amer) > 60 Est GFR (Non-Af Amer) > 60 Glucose 99 Calcium 9.0 Magnesium 1.8 Total Bilirubin 1.6 H Direct Bilirubin 0.4 Neonat Total Bilirubin Not Reportable Neonat Direct Bilirubin Not Reportable Neonat Indirect Bili Not Reportable AST 131 H ALT 81 H Alkaline Phosphatase 116 Total Protein 7.1 Albumin 4.0 Lipase 1064.1 H Urine Color Urine Appearance Urine pH Ur Specific [place] Urine Protein Urine Glucose (UA) Urine Ketones Urine Blood Urine Nitrite Urine Bilirubin Urine Urobilinogen Ur Leukocyte Esterase Urine WBC (Auto) Urine RBC (Auto) U Hyaline Cast (Auto) Urine Bacteria (Auto) Squamous Epi Cells Auto Urine Mucus (Auto) Urine Ascorbic Acid Urine HCG, Qual 02/13/18 02/13/18 13:56 13:56 WBC RBC Hgb Hct MCV MCH MCHC RDW Plt Count Seg Neutrophils % Lymphocytes % Monocytes % Eosinophils % Basophils % Absolute Neutrophils Absolute Lymphocytes Absolute Monocytes Absolute Eosinophils Absolute Basophils Sodium Potassium Chloride Carbon Dioxide Anion Gap BUN Creatinine Est GFR ( Amer) Est GFR (Non-Af Amer) Glucose Calcium Magnesium Total Bilirubin Direct Bilirubin Neonat Total Bilirubin Neonat Direct Bilirubin Neonat Indirect Bili AST ALT Alkaline Phosphatase Total Protein Albumin Lipase Urine Color DARK YELLOW Urine Appearance CLOUDY Urine pH 5.0 Ur Specific [place] 1.029 Urine Protein 100 H Urine Glucose (UA) NEGATIVE Urine Ketones 20 H Urine Blood NEGATIVE Urine Nitrite NEGATIVE Urine Bilirubin SMALL H Urine Urobilinogen 4.0 H Ur Leukocyte Esterase LARGE H Urine WBC (Auto) 6 Urine RBC (Auto) 4 U Hyaline Cast (Auto) 10 Urine Bacteria (Auto) TRACE Squamous Epi Cells Auto 28 Urine Mucus (Auto) MANY Urine Ascorbic Acid NEGATIVE Urine HCG, Qual NEGATIVE - Diagnostic Test Radiology reviewed: Reports reviewed Discharge - Discharge Clinical Impression: Hypokalemia, headache, resolved Pancreatitis Qualifiers: Chronicity: acute Pancreatitis type: unspecified pancreatitis type Acute pancreatitis complication: unspecified Qualified Code(s): K85.90 - Acute pancreatitis without necrosis or infection, unspecified Abdominal pain Qualifiers: Abdominal location: right upper quadrant Qualified Code(s): R10.11 - Right upper quadrant pain Nausea & vomiting Qualifiers: Vomiting type: unspecified Vomiting Intractability: non-intractable Qualified Code(s): R11.2 - Nausea with vomiting, unspecified Disposition: ADMITTED INPATIENT Admitting Provider: Hospitalist
[2018-02-13] MEDS ORDERED: POTASSIUM CHLORIDE 10 MEQ CAPSULE.ER PO ONE (17:59)
--- NOTE | 2018-02-13 18:54 | PDOC H&P ---
History of Present Illness Patient complains of: Nausea, vomiting, diarrhea, and abdominal pain. History of Present Illness: GILBERT WANG is a 42 year old female Past Medical History Cardiac Medical History: Reports: Hypertension Denies: Coronary Artery Disease, Myocardial Infarction Pulmonary Medical History: Reports: Asthma, Pneumonia, Sleep Apnea Denies: Bronchitis, Chronic Obstructive Pulmonary Disease (COPD) Neurological Medical History: Reports: Migraine Denies: Seizures GI Medical History: Denies: Hepatitis, Hiatal Hernia Musculoskeltal Medical History: Reports: Arthritis Psychiatric Medical History: Reports: Bipolar Disorder, Depression Hematology: Reports: Anemia Denies: Sickle Cell Disease Past Surgical History Past Surgical History: Reports: Adenoidectomy - 3 TIMES REMOVED, Gastric Bypass Surgery, Tonsillectomy - 3 TIMES REMOVED Denies: Amputation, Mastectomy, Pacemaker Social History Smoking Status: Former Smoker Frequency of Alcohol Use: None Hx Recreational Drug Use: No Drugs: None, Other Hx Prescription Drug Abuse: Yes Family History Family History: Other Parental Family History Reviewed: Yes Children Family History Reviewed: Yes Sibling(s) Family History Reviewed.: Yes Medication/Allergy Home Medications: No Home Medications 02/13/18 Allergies/Adverse Reactions: morphine [Morphine] Allergy (Severe, Verified 02/13/18 11:58) VOMITING trazodone [Trazodone] Allergy (Severe, Verified 02/13/18 11:58) codeine [Codeine] Allergy (Intermediate, Verified 02/13/18 11:58) cinnamon [Cinnamon] Allergy (Unknown, Verified 02/13/18 11:58) Swelling of Throat metformin HCl [From Glucophage] Allergy (Verified 02/13/18 11:58) Sulfa (Sulfonamide Antibiotics) Allergy (Verified 02/13/18 11:58) Review of Systems Constitutional: PRESENT: weakness. ABSENT: chills, fever(s) Eyes: ABSENT: visual disturbances Ears: ABSENT: hearing changes Nose, Mouth, and Throat: ABSENT: mouth pain, sore throat, vertigo Cardiovascular: ABSENT: chest pain, dyspnea on exertion, orthropnea, palpitations Respiratory: ABSENT: cough, dyspnea, hemoptysis, sputum Gastrointestinal: PRESENT: abdominal pain - Right upper quadrant., diarrhea, nausea, vomiting Neurological: ABSENT: abnormal gait, confusion, dizziness, syncope Psychiatric: PRESENT: anxiety Endocrine: ABSENT: cold intolerance, polydipsia, polyphagia, polyuria Hematologic/Lymphatic: ABSENT: easy bleeding, easy bruising, lymphadenopathy Physical Exam Vital Signs: Temp Pulse Resp BP Pulse Ox 98.4 F 102 H 19 147/99 H 98 02/13/18 18:28 02/13/18 18:28 02/13/18 18:28 02/13/18 11:56 02/13/18 18:28 Intake & Output 02/12/18 02/13/18 02/14/18 06:59 06:59 06:59 Intake Total 1000 Balance 1000 Weight 160.8 kg General appearance: PRESENT: no acute distress, cooperative, morbidly obese Eye exam: PRESENT: EOMI, PERRLA, other - No scleral injection.. ABSENT: scleral icterus Neck exam: ABSENT: carotid bruit, JVD, lymphadenopathy, thyromegaly Respiratory exam: PRESENT: other - Lung sounds are distant. I am unable to auscultate wheezes, rales, or rhonchi. Cardiovascular exam: PRESENT: other - Heart sounds are distant. I do not appreciate murmurs, ectopy, or gallups. Pulses: PRESENT: normal carotid pulses, normal dorsalis pedis pul GI/Abdominal exam: PRESENT: tenderness - Right upper quadrant tenderness., other - Morbidly obese. Bowel sounds are distant. I am unable to evaluate the abdomen for organomegaly, masses, or hernias du to the patient's body habitus. Rectal exam: PRESENT: deferred Musculoskeletal exam: PRESENT: other - Brawny edema Neurological exam: PRESENT: alert, awake, oriented to person, oriented to place , oriented to time, oriented to situation, CN II-XII grossly intact, motor sensory deficit Psychiatric exam: PRESENT: anxious, unusual affect Skin exam: PRESENT: dry, intact, warm Results Laboratory Results: 02/13/18 12:48 02/13/18 12:48 02/13/18 02/13/18 02/13/18 12:48 12:48 12:48 WBC 4.2 RBC 4.48 Hgb 9.8 L Hct 32.1 L MCV 72 L MCH 21.9 L MCHC 30.5 L RDW 22.5 H Plt Count 137 L Seg Neutrophils % 83.6 H Lymphocytes % 8.0 L Monocytes % 7.3 Eosinophils % 0.8 Basophils % 0.3 Absolute Neutrophils 3.5 Absolute Lymphocytes 0.3 L Absolute Monocytes 0.3 Absolute Eosinophils 0.0 Absolute Basophils 0.0 Sodium 137.0 Potassium 3.4 L Chloride 95 L Carbon Dioxide 28 Anion Gap 14 BUN 11 Creatinine 0.62 Est GFR ( Amer) > 60 Est GFR (Non-Af Amer) > 60 Glucose 99 Calcium 9.0 Magnesium 1.8 Total Bilirubin 1.6 H AST 131 H ALT 81 H Alkaline Phosphatase 116 Total Protein 7.1 Albumin 4.0 Lipase 1064.1 H Urine Color Urine Appearance Urine pH Ur Specific [place] Urine Protein Urine Glucose (UA) Urine Ketones Urine Blood Urine Nitrite Ur Leukocyte Esterase Urine WBC (Auto) Urine RBC (Auto) 02/13/18 13:56 WBC RBC Hgb Hct MCV MCH MCHC RDW Plt Count Seg Neutrophils % Lymphocytes % Monocytes % Eosinophils % Basophils % Absolute Neutrophils Absolute Lymphocytes Absolute Monocytes Absolute Eosinophils Absolute Basophils Sodium Potassium Chloride Carbon Dioxide Anion Gap BUN Creatinine Est GFR ( Amer) Est GFR (Non-Af Amer) Glucose Calcium Magnesium Total Bilirubin AST ALT Alkaline Phosphatase Total Protein Albumin Lipase Urine Color DARK YELLOW Urine Appearance CLOUDY Urine pH 5.0 Ur Specific [place] 1.029 Urine Protein 100 H Urine Glucose (UA) NEGATIVE Urine Ketones 20 H Urine Blood NEGATIVE Urine Nitrite NEGATIVE Ur Leukocyte Esterase LARGE H Urine WBC (Auto) 6 Urine RBC (Auto) 4 02/13/18 02/13/18 02/13/18 12:48 12:48 12:48 WBC 4.2 RBC 4.48 Hgb 9.8 L Hct 32.1 L MCV 72 L MCH 21.9 L MCHC 30.5 L RDW 22.5 H Plt Count 137 L Seg Neutrophils % 83.6 H Lymphocytes % 8.0 L Sodium 137.0 Potassium 3.4 L Chloride 95 L Carbon Dioxide 28 Anion Gap 14 BUN 11 Creatinine 0.62 Glucose 99 Calcium 9.0 Magnesium 1.8 Total Bilirubin 1.6 H Direct Bilirubin 0.4 AST 131 H ALT 81 H Alkaline Phosphatase 116 Total Protein 7.1 Albumin 4.0 Lipase 1064.1 H Impressions: Head CT 02/13/18 12:25 IMPRESSION: NORMAL BRAIN CT WITHOUT CONTRAST. EVIDENCE OF ACUTE STROKE: NO. Abdomen Ultrasound 02/13/18 15:29 IMPRESSION: Hepatomegaly. Fatty infiltration of the liver. Positive sonographic Desai sign. No gallstones. Assessment & Plan - Diagnosis (1) Hyperbilirubinemia Is this a current diagnosis for this admission?: Yes Plan: Consult general surgery to evaluate the patient for cholecystitis. (2) Morbid obesity with BMI of 50.0-59.9, adult Is this a current diagnosis for this admission?: Yes Plan: The patient is s/p gastric bypass surgery several years ago. She states that for the past 6 months she has again begun to have issues due to her bypass. She has not been back to see her surgeon about these problems. Her morbid obesity complicates all cares. (3) Abdominal pain Qualifiers: Abdominal location: right upper quadrant Qualified Code(s): R10.11 - Right upper quadrant pain Is this a current diagnosis for this admission?: Yes Plan: NPO, antiemetics, and pain control (4) Hypokalemia Is this a current diagnosis for this admission?: Yes Plan: Supplement and monitor. (5) Nausea & vomiting Qualifiers: Vomiting type: unspecified Vomiting Intractability: non-intractable Qualified Code(s): R11.2 - Nausea with vomiting, unspecified Is this a current diagnosis for this admission?: Yes Plan: NPO, IV fluids, and antiemetics. (6) Pancreatitis Qualifiers: Chronicity: acute Pancreatitis type: unspecified pancreatitis type Acute pancreatitis complication: unspecified Qualified Code(s): K85.90 - Acute pancreatitis without necrosis or infection, unspecified Is this a current diagnosis for this admission?: Yes Plan: NPO, pain control, and antiemetics. Possibly secondary to a biliary cause. I will check triglycerides. - Time Time Spent: Greater than 70 Minutes Medications reviewed and adjusted accordingly: Yes - Inpatient Certification Based on my medical assessment, after consideration of the patient's comorbidities, presenting symptoms, or acuity I expect that the services needed warrant INPATIENT care.: Yes I certify that my determination is in accordance with my understanding of Medicare's requirements for reasonable and necessary INPATIENT services [42 CFR 412.3e].: Yes Medical Necessity: Significant Comorbidiites Make Outpatient Treatment Too Risky , Need For IV Fluids, Need for Pain Control, Need for Surgery, Risk of Complication if Not Cared For in Hospital
[2018-02-13] MEDS ORDERED: ENOXAPARIN SODIUM INJ 60 MG/0.6 ML DISP.SYRIN SUBCUT ONE (19:30)
[2018-02-13 21:17] LABS: URINE AMPHETAMINES SCREEN NEGATIVE; URINE BARBITURATES SCREEN NEGATIVE; URINE BENZODIAZEPINES SCREEN NEGATIVE; URINE COCAINE SCREEN NEGATIVE; URINE MARIJUANA (THC) SCREEN NEGATIVE; URINE METHADONE SCREEN NEGATIVE; URINE PHENCYCLIDINE SCREEN NEGATIVE
--- NOTE | 2018-02-13 21:49 | PDOC CONSULTATION ---
Consultation Consult Date: 02/13/18 Consult reason:: abdominal pains History of Present Illness Admission Date/PCP: 02/13/18 18:22 Patient complains of: abdominal pains History of Present Illness: GILBERT WANG is a 42 year old female who is 6 years post gastric bypass c/o N/V and abdominal pains past 4 days. Noted to have elevated lipase in ED. US gallbladder showed no stones or cholecystitis. Patient claims she has been drinking almost every day with 1-2 glasses of mixed Vodka but stopped 3 days ago. Past Medical History Cardiac Medical History: Reports: Hypertension Denies: Coronary Artery Disease, Myocardial Infarction Pulmonary Medical History: Reports: Asthma, Pneumonia, Sleep Apnea Denies: Bronchitis, Chronic Obstructive Pulmonary Disease (COPD) Neurological Medical History: Reports: Migraine Denies: Seizures GI Medical History: Denies: Hepatitis, Hiatal Hernia Musculoskeltal Medical History: Reports: Arthritis Psychiatric Medical History: Reports: Bipolar Disorder, Depression Hematology: Reports: Anemia Denies: Sickle Cell Disease Past Surgical History Past Surgical History: Reports: Adenoidectomy - 3 TIMES REMOVED, Gastric Bypass Surgery, Tonsillectomy - 3 TIMES REMOVED Denies: Amputation, Mastectomy, Pacemaker Social History Lives with: Family Smoking Status: Former Smoker Frequency of Alcohol Use: Occasional Hx Recreational Drug Use: No Drugs: None, Other Hx Prescription Drug Abuse: Yes - Advance Directive Resuscitation Status: Full Code Family History Family History: Reviewed & Not Pertinent, Other Parental Family History Reviewed: Yes Children Family History Reviewed: No Sibling(s) Family History Reviewed.: No Medication/Allergy Home Medications: No Home Medications 02/13/18 Allergies/Adverse Reactions: morphine [Morphine] Allergy (Severe, Verified 02/13/18 11:58) VOMITING trazodone [Trazodone] Allergy (Severe, Verified 02/13/18 11:58) codeine [Codeine] Allergy (Intermediate, Verified 02/13/18 11:58) cinnamon [Cinnamon] Allergy (Unknown, Verified 02/13/18 11:58) Swelling of Throat metformin HCl [From Glucophage] Allergy (Verified 02/13/18 11:58) Sulfa (Sulfonamide Antibiotics) Allergy (Verified 02/13/18 11:58) Review of Systems Constitutional: PRESENT: other - no fever/choills Eyes: PRESENT: other - no visual/hearing changes Cardiovascular: PRESENT: other - no cough/chest pains Gastrointestinal: PRESENT: abdominal pain, diarrhea, nausea, vomiting Genitourinary: PRESENT: other - no dysuria Hematologic/Lymphatic: PRESENT: other - no easy bruising Physical Exam Vital Signs: Temp Pulse Resp BP Pulse Ox 98.4 F 102 H 19 130/70 H 98 02/13/18 18:28 02/13/18 18:28 02/13/18 18:28 02/13/18 19:28 02/13/18 18:28 Intake & Output 02/12/18 02/13/18 02/14/18 06:59 06:59 06:59 Intake Total 1000 Balance 1000 General appearance: PRESENT: no acute distress Head exam: PRESENT: atraumatic Eye exam: PRESENT: conjunctiva pink Mouth exam: PRESENT: moist Neck exam: PRESENT: full ROM Respiratory exam: PRESENT: clear to auscultation geetha Cardiovascular exam: PRESENT: RRR Pulses: PRESENT: normal radial pulses Vascular exam: PRESENT: normal capillary refill GI/Abdominal exam: PRESENT: soft, tenderness - mild epigastric and RUQ tenderness Extremities exam: PRESENT: full ROM Musculoskeletal exam: PRESENT: ambulatory Neurological exam: PRESENT: alert, oriented to person, oriented to place, oriented to time, oriented to situation Psychiatric exam: PRESENT: appropriate affect Skin exam: PRESENT: normal color, warm Results Impressions: Head CT 02/13/18 12:25 IMPRESSION: NORMAL BRAIN CT WITHOUT CONTRAST. EVIDENCE OF ACUTE STROKE: NO. Abdomen Ultrasound 02/13/18 15:29 IMPRESSION: Hepatomegaly. Fatty infiltration of the liver. Positive sonographic Desai sign. No gallstones. Assessment & Plan - Diagnosis (1) Abdominal pain Qualifiers: Abdominal location: right upper quadrant Qualified Code(s): R10.11 - Right upper quadrant pain Is this a current diagnosis for this admission?: Yes (2) Morbid obesity with BMI of 50.0-59.9, adult Is this a current diagnosis for this admission?: Yes (3) Pancreatitis Qualifiers: Chronicity: acute Pancreatitis type: unspecified pancreatitis type Acute pancreatitis complication: unspecified Qualified Code(s): K85.90 - Acute pancreatitis without necrosis or infection, unspecified Is this a current diagnosis for this admission?: Yes - Time Time Spent: 30 to 50 Minutes - Inpatient Certification Medical Necessity: Need For IV Fluids, Need for Pain Control, Risk of Complication if Not Cared For in Hospital - Plan Summary Plan Summary: Keep NPO Hydrate Monitor LFTs and lipase
[2018-02-13] MEDS: RINGERS SOLUTION,LACTATED 1,000 ML IV PRN (22:23)
[2018-02-13] MEDS: ONDANSETRON HCL INJ/PF 4 MG/2 ML SDV IV PRN (22:23)
[2018-02-13] MEDS: HYDROMORPHONE HCL INJ/PF 2 MG/ML AMPULE IV PRN (23:35)
[2018-02-14] MEDS ORDERED: ENOXAPARIN SODIUM INJ 60 MG/0.6 ML DISP.SYRIN SUBCUT ONE (00:45)
[2018-02-14] MEDS: ONDANSETRON HCL INJ/PF 4 MG/2 ML SDV IV PRN ×3 (04:34→15:32)
[2018-02-14] MEDS: HYDROMORPHONE HCL INJ/PF 2 MG/ML AMPULE IV PRN ×5 (04:34→22:20)
[2018-02-14 07:26] LABS: ALANINE AMINOTRANSFERASE 84 U/L (9-52); ALBUMIN 3.4 g/dL (3.5-5.0); ALKALINE PHOSPHATASE 91 U/L (38-126); ANION GAP 13 (5-19); ASPARTATE AMINO TRANSFERASE 152 U/L (14-36); BILIRUBIN,DIRECT 0.4 mg/dL (0.0-0.4); BILIRUBIN,TOTAL 1.2 mg/dL (0.2-1.3); BLOOD UREA NITROGEN 10 mg/dL (7-20); CALCIUM 8.4 mg/dL (8.4-10.2); CARBON DIOXIDE 24 mmol/L (22-30); CHLORIDE 102 mmol/L (98-107); GLUCOSE 73 mg/dL (75-110); LIPASE 939.4 U/L (23-300); POTASSIUM 3.3 mmol/L (3.6-5.0); TOTAL PROTEIN 6.1 g/dL (6.3-8.2)
[2018-02-14] MEDS: RINGERS SOLUTION,LACTATED 1,000 ML IV PRN ×2 (08:25→15:33)
--- NOTE | 2018-02-14 08:46 | PDOC PROGRESS REPORT ---
Subjective Progress Note for:: 02/14/18 Subjective:: abdominal pains Reason For Visit: PANCREATITIS Physical Exam Vital Signs: Temp Pulse Resp BP Pulse Ox 98.1 F 108 H 20 114/92 H 96 02/14/18 07:22 02/14/18 07:22 02/14/18 07:22 02/14/18 07:22 02/14/18 07:22 Intake & Output 02/13/18 02/14/18 02/15/18 06:59 06:59 06:59 Intake Total 1000 1000 Balance 1000 1000 Exam: abdomen is soft with mild RUQ tenderness Results Laboratory Results: 02/14/18 06:05 02/14/18 06:05 Sodium 139.0 Potassium 3.3 L Chloride 102 Carbon Dioxide 24 Anion Gap 13 BUN 10 Creatinine 0.56 Est GFR ( Amer) > 60 Est GFR (Non-Af Amer) > 60 Glucose 73 L Calcium 8.4 Total Bilirubin 1.2 AST 152 H ALT 84 H Alkaline Phosphatase 91 Total Protein 6.1 L Albumin 3.4 L Lipase 939.4 H Impressions: Head CT 02/13/18 12:25 IMPRESSION: NORMAL BRAIN CT WITHOUT CONTRAST. EVIDENCE OF ACUTE STROKE: NO. Abdomen Ultrasound 02/13/18 15:29 IMPRESSION: Hepatomegaly. Fatty infiltration of the liver. Positive sonographic Desai sign. No gallstones. Assessment & Plan - Diagnosis (1) Abdominal pain Qualifiers: Abdominal location: right upper quadrant Qualified Code(s): R10.11 - Right upper quadrant pain Is this a current diagnosis for this admission?: Yes (2) Morbid obesity with BMI of 50.0-59.9, adult Is this a current diagnosis for this admission?: Yes (3) Pancreatitis Qualifiers: Chronicity: acute Pancreatitis type: unspecified pancreatitis type Acute pancreatitis complication: unspecified Qualified Code(s): K85.90 - Acute pancreatitis without necrosis or infection, unspecified Is this a current diagnosis for this admission?: Yes - Time Time Spent with patient: 15-24 minutes - Plan Summary Plan Summary: Start clears continue check lipase
[2018-02-14] MEDS ORDERED: ENOXAPARIN SODIUM INJ 60 MG/0.6 ML DISP.SYRIN SUBCUT SCH (10:00)
[2018-02-14] MEDS ORDERED: ENOXAPARIN SODIUM INJ 40 MG/0.4 ML DISP.SYRIN SUBCUT SCH (10:00)
[2018-02-14] MEDS: POTASSI CL 20 MEQ/50 ML RIDER 20 MEQ/50 ML RTUPB IV SCH ×2 (10:27→12:40)
--- NOTE | 2018-02-14 13:38 | PDOC PROGRESS REPORT ---
Subjective Progress Note for:: 02/14/18 Subjective:: The patient states that she is feeling better this morning. She is interested in her clear liquid diet. No new complaints. Reason For Visit: PANCREATITIS Physical Exam Vital Signs: Temp Pulse Resp BP Pulse Ox 98.1 F 108 H 20 114/92 H 96 02/14/18 07:22 02/14/18 07:22 02/14/18 07:22 02/14/18 07:22 02/14/18 07:22 Intake & Output 02/13/18 02/14/18 02/15/18 06:59 06:59 06:59 Intake Total 1000 2010 Balance 1000 2009 General appearance: PRESENT: no acute distress, morbidly obese Respiratory exam: PRESENT: other - No increased work of breathing. Lung sounds are distant. No wheezes, rales, or rhonchi are appreciated. No tactile fremitus. Cardiovascular exam: PRESENT: RRR, other - Heart sounds are distant. I do not auscultate murmurs, ectopy, or gallups. No lateral PMI. No thrills. GI/Abdominal exam: PRESENT: soft, other - The abdomen is morbidly obese. Bowel sounds are distant. I am unable to evaluate the abdomen for hernias, masses, or organomegaly.. ABSENT: tenderness Extremities exam: ABSENT: clubbing, joint swelling, tenderness Musculoskeletal exam: PRESENT: normal inspection. ABSENT: deformity, dislocation Neurological exam: PRESENT: alert, awake, oriented to person, oriented to place , oriented to time, oriented to situation, CN II-XII grossly intact. ABSENT: motor sensory deficit Psychiatric exam: PRESENT: unusual affect Skin exam: PRESENT: dry, intact, warm Results Laboratory Results: 02/14/18 06:05 02/14/18 06:05 Sodium 139.0 Potassium 3.3 L Chloride 102 Carbon Dioxide 24 Anion Gap 13 BUN 10 Creatinine 0.56 Est GFR ( Amer) > 60 Est GFR (Non-Af Amer) > 60 Glucose 73 L Calcium 8.4 Total Bilirubin 1.2 AST 152 H ALT 84 H Alkaline Phosphatase 91 Total Protein 6.1 L Albumin 3.4 L Lipase 939.4 H Impressions: Head CT 02/13/18 12:25 IMPRESSION: NORMAL BRAIN CT WITHOUT CONTRAST. EVIDENCE OF ACUTE STROKE: NO. Abdomen Ultrasound 02/13/18 15:29 IMPRESSION: Hepatomegaly. Fatty infiltration of the liver. Positive sonographic Desai sign. No gallstones. Assessment & Plan - Diagnosis (1) Hyperbilirubinemia Is this a current diagnosis for this admission?: Yes Plan: Consult general surgery to evaluate the patient for cholecystitis. I appreciate Dr. Betancourt's assistance. (2) Morbid obesity with BMI of 50.0-59.9, adult Is this a current diagnosis for this admission?: Yes Plan: The patient is s/p gastric bypass surgery several years ago. She states that for the past 6 months she has again begun to have issues due to her bypass. She has not been back to see her surgeon about these problems. Her morbid obesity complicates all cares. (3) Abdominal pain Qualifiers: Abdominal location: right upper quadrant Qualified Code(s): R10.11 - Right upper quadrant pain Is this a current diagnosis for this admission?: Yes Plan: Improved. Clear liquid diet has been initiated. (4) Hypokalemia Is this a current diagnosis for this admission?: Yes Plan: Supplement and monitor. (5) Nausea & vomiting Qualifiers: Vomiting type: unspecified Vomiting Intractability: non-intractable Qualified Code(s): R11.2 - Nausea with vomiting, unspecified Is this a current diagnosis for this admission?: Yes Plan: NPO, IV fluids, and antiemetics. (6) Pancreatitis Qualifiers: Chronicity: acute Pancreatitis type: unspecified pancreatitis type Acute pancreatitis complication: unspecified Qualified Code(s): K85.90 - Acute pancreatitis without necrosis or infection, unspecified Is this a current diagnosis for this admission?: Yes Plan: Likely due to alcohol as per Dr. Betancourt. No biliary obstruction. - Time Time Spent with patient: 35 or more minutes Medications reviewed and adjusted accordingly: Yes
[2018-02-14] MEDS ORDERED: CEFTRIAXONE INJ 1000 MG VIAL IV PRN (22:05)
[2018-02-14] MEDS: ENOXAPARIN SODIUM INJ 60 MG/0.6 ML DISP.SYRIN SUBCUT SCH (22:21)
[2018-02-14] MEDS ORDERED: CEFTRIAXONE 1 GM/D5W RTU 1 GM/50 ML RTUPB IV ONE (23:00)
[2018-02-15] MEDS: HYDROMORPHONE HCL INJ/PF 2 MG/ML AMPULE IV PRN ×5 (02:09→21:56)
[2018-02-15] MEDS: ONDANSETRON HCL INJ/PF 4 MG/2 ML SDV IV PRN ×4 (02:11→23:59)
[2018-02-15 07:42] LABS: ALANINE AMINOTRANSFERASE 76 U/L (9-52); ALBUMIN 3.1 g/dL (3.5-5.0); ALKALINE PHOSPHATASE 74 U/L (38-126); ANION GAP 8 (5-19); ASPARTATE AMINO TRANSFERASE 112 U/L (14-36); BILIRUBIN,DIRECT 0.4 mg/dL (0.0-0.4); BILIRUBIN,TOTAL 0.6 mg/dL (0.2-1.3); BLOOD UREA NITROGEN 8 mg/dL (7-20); CALCIUM 8.6 mg/dL (8.4-10.2); CARBON DIOXIDE 29 mmol/L (22-30); CHLORIDE 100 mmol/L (98-107); GLUCOSE 92 mg/dL (75-110); POTASSIUM 3.9 mmol/L (3.6-5.0); SODIUM 136.7 mmol/L (137-145); TOTAL PROTEIN 5.7 g/dL (6.3-8.2)
[2018-02-15] MEDS: RINGERS SOLUTION,LACTATED 1,000 ML IV PRN ×3 (07:45→15:23)
[2018-02-15] MEDS ORDERED: SUMATRIPTAN SUCCINATE 6 MG SQ PRN (12:18)
--- NOTE | 2018-02-15 12:27 | PDOC PROGRESS REPORT ---
Subjective Progress Note for:: 02/15/18 Subjective:: The patient is tolerating a clear liquid diet well. No new complaints. Reason For Visit: PANCREATITIS Physical Exam Vital Signs: Temp Pulse Resp BP Pulse Ox 97.5 F 100 18 114/69 98 02/15/18 11:32 02/15/18 11:32 02/15/18 11:32 02/15/18 11:32 02/15/18 11:32 Intake & Output 02/14/18 02/15/18 02/16/18 06:59 06:59 06:59 Intake Total 1000 5852 1449 Output Total 1000 700 Balance 1000 4852 749 General appearance: PRESENT: no acute distress, cooperative, morbidly obese Respiratory exam: PRESENT: other - No increased work of breathing. No wheezes, rales, or rhonchi. No tactile fremitus. Cardiovascular exam: PRESENT: RRR, other - No lateral PMI. No thrills. No tactile fremitus.. ABSENT: gallop, systolic murmur GI/Abdominal exam: PRESENT: soft, other - Abdomen is morbidly obese. Bowel sounds are distant. I am unable to evaluate the abdomen for organomegaly, masses , or hernias.. ABSENT: tenderness Rectal exam: PRESENT: deferred Extremities exam: ABSENT: clubbing, joint swelling, tenderness Musculoskeletal exam: PRESENT: normal inspection. ABSENT: deformity, dislocation, tenderness Neurological exam: PRESENT: alert, awake, oriented to person, oriented to place , oriented to time, oriented to situation, CN II-XII grossly intact. ABSENT: motor sensory deficit Psychiatric exam: PRESENT: appropriate affect, normal mood Skin exam: PRESENT: dry, intact, warm Results Laboratory Results: 02/15/18 07:13 02/15/18 07:13 Sodium 136.7 L Potassium 3.9 Chloride 100 Carbon Dioxide 29 Anion Gap 8 BUN 8 Creatinine 0.53 Est GFR ( Amer) > 60 Est GFR (Non-Af Amer) > 60 Glucose 92 Calcium 8.6 Total Bilirubin 0.6 AST 112 H ALT 76 H Alkaline Phosphatase 74 Total Protein 5.7 L Albumin 3.1 L Lipase 713.0 H Impressions: Head CT 02/13/18 12:25 IMPRESSION: NORMAL BRAIN CT WITHOUT CONTRAST. EVIDENCE OF ACUTE STROKE: NO. Abdomen Ultrasound 02/13/18 15:29 IMPRESSION: Hepatomegaly. Fatty infiltration of the liver. Positive sonographic Desai sign. No gallstones. Assessment & Plan - Diagnosis (1) Hyperbilirubinemia Is this a current diagnosis for this admission?: Yes Plan: Resolved. (2) Morbid obesity with BMI of 50.0-59.9, adult Is this a current diagnosis for this admission?: Yes Plan: The patient is s/p gastric bypass surgery several years ago. She states that for the past 6 months she has again begun to have issues due to her bypass. She has not been back to see her surgeon about these problems. Her morbid obesity complicates all cares. (3) Abdominal pain Qualifiers: Abdominal location: right upper quadrant Qualified Code(s): R10.11 - Right upper quadrant pain Is this a current diagnosis for this admission?: Yes (4) Hypokalemia Is this a current diagnosis for this admission?: Yes Plan: Supplement and monitor. (5) Nausea & vomiting Qualifiers: Vomiting type: unspecified Vomiting Intractability: non-intractable Qualified Code(s): R11.2 - Nausea with vomiting, unspecified Is this a current diagnosis for this admission?: Yes Plan: Resolved. The patient is tolerating a clear liquid diet well. (6) Pancreatitis Qualifiers: Chronicity: acute Pancreatitis type: unspecified pancreatitis type Acute pancreatitis complication: unspecified Qualified Code(s): K85.90 - Acute pancreatitis without necrosis or infection, unspecified Is this a current diagnosis for this admission?: Yes Plan: Likely due to alcohol as per Dr. Betancourt. No biliary obstruction. Lipase is slow to resolve. (7) Gram-negative bacteremia Is this a current diagnosis for this admission?: Yes Plan: Nursing has documented that they received a call this morning reporting the growth of GNR from 1/2 blood cultures from this patient. I contacted micro, because we do not have blood cultures on this patient. Micro denies the existence of any blood cultures, much less growth of GNR from blood cultures on this patient. - Time Time Spent with patient: 35 or more minutes Medications reviewed and adjusted accordingly: Yes Anticipated discharge: Home
[2018-02-15] MEDS ORDERED: SUMATRIPTAN SUCCINATE INJ/PF 6 MG/0.5 ML SDV SUBCUT PRN (12:28)
[2018-02-15] MEDS ORDERED: CEFTRIAXONE 1 GM/D5W RTU 1 GM/50 ML RTUPB IV SCH (22:00)
[2018-02-15] MEDS ORDERED: CEFTRIAXONE SODIUM 1,000 MG in NORMAL SALINE 50 ML IV SCH (22:00)
--- NOTE | 2018-02-15 22:46 | PDOC PROGRESS REPORT ---
Subjective Progress Note for:: 02/15/18 Subjective:: Less pains. +Flatus biut no BM yet. Reason For Visit: PANCREATITIS Physical Exam Vital Signs: Temp Pulse Resp BP Pulse Ox 98.0 F 114 H 18 144/85 H 100 02/15/18 20:00 02/15/18 20:00 02/15/18 20:00 02/15/18 20:00 02/15/18 20:00 Intake & Output 02/14/18 02/15/18 02/16/18 06:59 06:59 06:59 Intake Total 1000 5852 3123 Output Total 1000 700 Balance 1000 4852 2423 Exam: abd is soft with mild epigasytric and RUQ tenderness Results Laboratory Results: 02/15/18 07:13 02/15/18 07:13 Sodium 136.7 L Potassium 3.9 Chloride 100 Carbon Dioxide 29 Anion Gap 8 BUN 8 Creatinine 0.53 Est GFR ( Amer) > 60 Est GFR (Non-Af Amer) > 60 Glucose 92 Calcium 8.6 Total Bilirubin 0.6 AST 112 H ALT 76 H Alkaline Phosphatase 74 Total Protein 5.7 L Albumin 3.1 L Lipase 713.0 H Impressions: Head CT 02/13/18 12:25 IMPRESSION: NORMAL BRAIN CT WITHOUT CONTRAST. EVIDENCE OF ACUTE STROKE: NO. Abdomen Ultrasound 02/13/18 15:29 IMPRESSION: Hepatomegaly. Fatty infiltration of the liver. Positive sonographic Desai sign. No gallstones. Assessment & Plan - Diagnosis (1) Abdominal pain Qualifiers: Abdominal location: right upper quadrant Qualified Code(s): R10.11 - Right upper quadrant pain Is this a current diagnosis for this admission?: Yes (2) Morbid obesity with BMI of 50.0-59.9, adult Is this a current diagnosis for this admission?: Yes (3) Pancreatitis Qualifiers: Chronicity: acute Pancreatitis type: unspecified pancreatitis type Acute pancreatitis complication: unspecified Qualified Code(s): K85.90 - Acute pancreatitis without necrosis or infection, unspecified Is this a current diagnosis for this admission?: Yes - Time Time Spent with patient: 15-24 minutes - Inpatient Certification Medical Necessity: Need For IV Fluids, Need for Pain Control, Risk of Complication if Not Cared For in Hospital - Plan Summary Plan Summary: OK to start Full lquids Continue monitor Lipase
[2018-02-15] MEDS: ENOXAPARIN SODIUM INJ 60 MG/0.6 ML DISP.SYRIN SUBCUT SCH (23:58)
[2018-02-16] MEDS: RINGERS SOLUTION,LACTATED 1,000 ML IV PRN ×3 (00:13→18:17)
[2018-02-16] MEDS: HYDROMORPHONE HCL INJ/PF 2 MG/ML AMPULE IV PRN ×5 (01:27→21:04)
[2018-02-16] MEDS: ONDANSETRON HCL INJ/PF 4 MG/2 ML SDV IV PRN ×2 (07:14→17:33)
[2018-02-16 09:56] LABS: ALANINE AMINOTRANSFERASE 89 U/L (9-52); ALKALINE PHOSPHATASE 78 U/L (38-126); ANION GAP 8 (5-19); ASPARTATE AMINO TRANSFERASE 114 U/L (14-36); BILIRUBIN,DIRECT 0.3 mg/dL (0.0-0.4); BILIRUBIN,TOTAL 0.6 mg/dL (0.2-1.3); BLOOD UREA NITROGEN 6 mg/dL (7-20); CALCIUM 8.3 mg/dL (8.4-10.2); CARBON DIOXIDE 28 mmol/L (22-30); CHLORIDE 101 mmol/L (98-107); GLUCOSE 104 mg/dL (75-110); LIPASE 564.2 U/L (23-300); POTASSIUM 3.1 mmol/L (3.6-5.0); SODIUM 137.1 mmol/L (137-145); TOTAL PROTEIN 5.7 g/dL (6.3-8.2)
[2018-02-16] MEDS ORDERED: LEVOFLOXACIN 750 MG/D5W RTU 750 MG/150 ML RTUPB IV SCH (10:00)
--- NOTE | 2018-02-16 15:54 | PDOC PROGRESS REPORT ---
Subjective Progress Note for:: 02/16/18 Subjective:: The patient has been advanced to a full liquid diet, but is still primarily taking in full liquids. The patient fears return of her symptoms. Reason For Visit: PANCREATITIS,OBSTRUCTION,GRAM NEGATIVE BACTEREMIA Physical Exam Vital Signs: Temp Pulse Resp BP Pulse Ox 98 F 99 18 107/59 L 98 02/16/18 15:40 02/16/18 15:40 02/16/18 15:40 02/16/18 15:40 02/16/18 15:40 Results Impressions: Head CT 02/13/18 12:25 IMPRESSION: NORMAL BRAIN CT WITHOUT CONTRAST. EVIDENCE OF ACUTE STROKE: NO. Abdomen Ultrasound 02/13/18 15:29 IMPRESSION: Hepatomegaly. Fatty infiltration of the liver. Positive sonographic Desai sign. No gallstones. Assessment & Plan - Diagnosis (1) Hyperbilirubinemia Is this a current diagnosis for this admission?: Yes Plan: Resolved. (2) Morbid obesity with BMI of 50.0-59.9, adult Is this a current diagnosis for this admission?: Yes Plan: The patient is s/p gastric bypass surgery several years ago. She states that for the past 6 months she has again begun to have issues due to her bypass. She has not been back to see her surgeon about these problems. Her morbid obesity complicates all cares. (3) Abdominal pain Qualifiers: Abdominal location: right upper quadrant Qualified Code(s): R10.11 - Right upper quadrant pain Is this a current diagnosis for this admission?: Yes Plan: Improved. Clear liquid diet has been initiated. Stop IV narcotics. (4) Hypokalemia Is this a current diagnosis for this admission?: Yes Plan: Supplement and monitor. 3.1 this am. (5) Nausea & vomiting Qualifiers: Vomiting type: unspecified Vomiting Intractability: non-intractable Qualified Code(s): R11.2 - Nausea with vomiting, unspecified Is this a current diagnosis for this admission?: Yes Plan: Resolved. The patient is tolerating a clear liquid diet well and is starting to take some full liquids. (6) Pancreatitis Qualifiers: Chronicity: acute Pancreatitis type: unspecified pancreatitis type Acute pancreatitis complication: unspecified Qualified Code(s): K85.90 - Acute pancreatitis without necrosis or infection, unspecified Is this a current diagnosis for this admission?: Yes Plan: Likely due to alcohol as per Dr. Betancourt. No biliary obstruction. Lipase is slow to resolve. (7) Gram-negative bacteremia Is this a current diagnosis for this admission?: Yes Plan: Nursing has documented that they received a call this morning reporting the growth of GNR from 1/2 blood cultures from this patient. I contacted [facility], because we do not have blood cultures on this patient. Micro denies the existence of any blood cultures, much less growth of GNR from blood cultures on this patient. (8) UTI (urinary tract infection) Qualifiers: Urinary tract infection type: acute cystitis Hematuria presence: with hematuria Qualified Code(s): N30.01 - Acute cystitis with hematuria Is this a current diagnosis for this admission?: Yes Plan: Due to E. coli. Sensitive to all but ampicillin and nitrofurantoin. - Time Time Spent with patient: 25-34 minutes - Inpatient Certification Based on my medical assessment, after consideration of the patient's comorbidities, presenting symptoms, or acuity I expect that the services needed warrant INPATIENT care.: Yes I certify that my determination is in accordance with my understanding of Medicare's requirements for reasonable and necessary INPATIENT services [42 CFR 412.3e].: Yes Medical Necessity: Significant Comorbidiites Make Outpatient Treatment Too Risky , Need For IV Fluids, Need for IV Antibiotics
[2018-02-16] MEDS: POTASSI CL 20 MEQ/50 ML RIDER 20 MEQ/50 ML RTUPB IV SCH ×2 (18:03→21:02)
[2018-02-16] MEDS: ENOXAPARIN SODIUM INJ 60 MG/0.6 ML DISP.SYRIN SUBCUT SCH (22:20)
[2018-02-17] MEDS: HYDROMORPHONE HCL INJ/PF 2 MG/ML AMPULE IV PRN ×3 (00:54→07:42)
[2018-02-17] MEDS: POTASSI CL 20 MEQ/50 ML RIDER 20 MEQ/50 ML RTUPB IV SCH ×3 (01:45→23:33)
[2018-02-17] MEDS: RINGERS SOLUTION,LACTATED 1,000 ML IV PRN (04:06)
[2018-02-17] MEDS: ONDANSETRON HCL INJ/PF 4 MG/2 ML SDV IV PRN ×3 (04:07→22:46)
[2018-02-17] MEDS: HYDROCODONE/ACETAMINOPHEN 10-325 MG TABLET PO PRN ×3 (11:16→22:27)
--- NOTE | 2018-02-17 16:53 | PDOC PROGRESS REPORT ---
Subjective Progress Note for:: 02/17/18 Subjective:: This is 42 years old female patient admitted with chief complaint of abdominal pain, nausea and vomiting. Her initial blood work shows markedly elevated lipase of 1064. And her potassium is also low 3.1. Patient is being managed with IV fluid hydration and pain management. Currently her abdominal pain has been improving her diet is also being advised that she is potential discharge for tomorrow. Reason For Visit: PANCREATITIS,OBSTRUCTION,GRAM NEGATIVE BACTEREMIA Physical Exam Vital Signs: Temp Pulse Resp BP Pulse Ox 97.7 F 86 20 110/61 96 02/17/18 14:59 02/17/18 14:59 02/17/18 14:59 02/17/18 14:59 02/17/18 14:59 Intake & Output 02/16/18 02/17/18 02/18/18 06:59 06:59 06:59 Intake Total 2987 960 Output Total 2900 200 Balance 87 760 Weight 173.7 kg General appearance: PRESENT: no acute distress, well-developed, well-nourished Head exam: PRESENT: atraumatic, normocephalic Eye exam: PRESENT: conjunctiva pink, EOMI, PERRLA. ABSENT: scleral icterus Ear exam: PRESENT: normal external ear exam Mouth exam: PRESENT: moist, tongue midline Neck exam: ABSENT: carotid bruit, JVD, lymphadenopathy, thyromegaly Respiratory exam: PRESENT: clear to auscultation geetha. ABSENT: rales, rhonchi, wheezes Cardiovascular exam: PRESENT: RRR. ABSENT: diastolic murmur, rubs, systolic murmur Pulses: PRESENT: normal dorsalis pedis pul Vascular exam: PRESENT: normal capillary refill GI/Abdominal exam: PRESENT: normal bowel sounds, soft. ABSENT: distended, guarding, mass, organolmegaly, rebound, tenderness Rectal exam: PRESENT: deferred Extremities exam: PRESENT: full ROM. ABSENT: calf tenderness, clubbing, pedal edema Neurological exam: PRESENT: alert, awake, oriented to person, oriented to place , oriented to time, oriented to situation, CN II-XII grossly intact. ABSENT: motor sensory deficit Psychiatric exam: PRESENT: appropriate affect, normal mood. ABSENT: homicidal ideation, suicidal ideation Skin exam: PRESENT: dry, intact, warm. ABSENT: cyanosis, rash Results Impressions: Head CT 02/13/18 12:25 IMPRESSION: NORMAL BRAIN CT WITHOUT CONTRAST. EVIDENCE OF ACUTE STROKE: NO. Abdomen Ultrasound 02/13/18 15:29 IMPRESSION: Hepatomegaly. Fatty infiltration of the liver. Positive sonographic Desai sign. No gallstones. Assessment & Plan - Diagnosis (1) Acute on chronic pancreatitis Is this a current diagnosis for this admission?: Yes Plan: Continue hydration and pain management. (2) Hypokalemia Is this a current diagnosis for this admission?: Yes Plan: We will replete (3) Elevated liver chemistry Is this a current diagnosis for this admission?: Yes Plan: Most probably related to her acute pancreatitis. (4) UTI (urinary tract infection) Is this a current diagnosis for this admission?: Yes Plan: Urine culture grew E. coli. Continue current antibiotic regimen. (5) Morbid obesity with BMI of 50.0-59.9, adult Is this a current diagnosis for this admission?: Yes Plan: Patient is status post gastric bypass surgery. Lifestyle modification advised.
--- NOTE | 2018-02-17 17:23 | PDOC PROGRESS REPORT ---
Subjective Progress Note for:: 02/17/18 Subjective:: Less abdominal pains Reason For Visit: PANCREATITIS,OBSTRUCTION,GRAM NEGATIVE BACTEREMIA Physical Exam Vital Signs: Temp Pulse Resp BP Pulse Ox 97.7 F 86 20 110/61 96 02/17/18 14:59 02/17/18 14:59 02/17/18 14:59 02/17/18 14:59 02/17/18 14:59 Intake & Output 02/16/18 02/17/18 02/18/18 06:59 06:59 06:59 Intake Total 2987 960 Output Total 2900 200 Balance 87 760 Weight 173.7 kg Exam: abd is soft with minimal tenderness RUQ and epigastric areas Results Impressions: Head CT 02/13/18 12:25 IMPRESSION: NORMAL BRAIN CT WITHOUT CONTRAST. EVIDENCE OF ACUTE STROKE: NO. Abdomen Ultrasound 02/13/18 15:29 IMPRESSION: Hepatomegaly. Fatty infiltration of the liver. Positive sonographic Desai sign. No gallstones. Assessment & Plan - Diagnosis (1) Abdominal pain Qualifiers: Abdominal location: right upper quadrant Qualified Code(s): R10.11 - Right upper quadrant pain Is this a current diagnosis for this admission?: Yes (2) Morbid obesity with BMI of 50.0-59.9, adult Is this a current diagnosis for this admission?: Yes (3) Pancreatitis Qualifiers: Chronicity: acute Pancreatitis type: unspecified pancreatitis type Acute pancreatitis complication: unspecified Qualified Code(s): K85.90 - Acute pancreatitis without necrosis or infection, unspecified Is this a current diagnosis for this admission?: Yes - Time Time Spent with patient: 15-24 minutes - Plan Summary Plan Summary: OK to increase diet. Lipase continues to go down. OK to discharge when lipase almost normal We can follow her at the surgical clinic
[2018-02-17] MEDS ORDERED: ENOXAPARIN SODIUM INJ 60 MG/0.6 ML DISP.SYRIN SUBCUT ONE (23:57)
[2018-02-18] MEDS: ENOXAPARIN SODIUM INJ 60 MG/0.6 ML DISP.SYRIN SUBCUT SCH ×2 (00:22→22:42)
[2018-02-18] MEDS: RINGERS SOLUTION,LACTATED 1,000 ML IV PRN ×3 (03:06→20:16)
[2018-02-18] MEDS: HYDROCODONE/ACETAMINOPHEN 10-325 MG TABLET PO PRN ×2 (05:37→17:22)
[2018-02-18 07:19] LABS: ALANINE AMINOTRANSFERASE 103 U/L (9-52); ALBUMIN 3.1 g/dL (3.5-5.0); ALKALINE PHOSPHATASE 74 U/L (38-126); ANION GAP 9 (5-19); ASPARTATE AMINO TRANSFERASE 115 U/L (14-36); BILIRUBIN,DIRECT 0.3 mg/dL (0.0-0.4); BILIRUBIN,TOTAL 0.6 mg/dL (0.2-1.3); BLOOD UREA NITROGEN 5 mg/dL (7-20); CALCIUM 8.2 mg/dL (8.4-10.2); CARBON DIOXIDE 27 mmol/L (22-30); CHLORIDE 105 mmol/L (98-107); GLUCOSE 81 mg/dL (75-110); LIPASE 806.8 U/L (23-300); POTASSIUM 3.5 mmol/L (3.6-5.0); SODIUM 141.4 mmol/L (137-145); TOTAL PROTEIN 5.4 g/dL (6.3-8.2)
[2018-02-18] MEDS: ONDANSETRON HCL INJ/PF 4 MG/2 ML SDV IV PRN ×2 (09:13→22:36)
[2018-02-18] MEDS: HYDROMORPHONE HCL INJ/PF 2 MG/ML AMPULE IV PRN ×2 (09:21→13:40)
--- NOTE | 2018-02-18 14:20 | PDOC PROGRESS REPORT ---
Subjective Progress Note for:: 02/18/18 Subjective:: I seen patient resting in bed. She complains of epigastric abdominal pain. Her lipase has been trending down but this morning it started to creep up from 564.2 trended up 806. If patient tolerates solid food and her lipase trended down she might be discharged tomorrow Reason For Visit: PANCREATITIS,OBSTRUCTION,GRAM NEGATIVE BACTEREMIA Physical Exam Vital Signs: Temp Pulse Resp BP Pulse Ox 98.1 F 116 H 18 151/92 H 99 02/18/18 11:28 02/18/18 11:28 02/18/18 11:28 02/18/18 11:28 02/18/18 11:28 Intake & Output 02/17/18 02/18/18 02/19/18 06:59 06:59 06:59 Intake Total 2987 2510 2048 Output Total 2900 1400 1000 Balance 87 1110 1048 Weight 173.7 kg 173.4 kg General appearance: PRESENT: no acute distress, well-developed, well-nourished Head exam: PRESENT: atraumatic, normocephalic Eye exam: PRESENT: conjunctiva pink, EOMI, PERRLA. ABSENT: scleral icterus Ear exam: PRESENT: normal external ear exam Mouth exam: PRESENT: moist, tongue midline Neck exam: ABSENT: carotid bruit, JVD, lymphadenopathy, thyromegaly Respiratory exam: PRESENT: clear to auscultation geetha. ABSENT: rales, rhonchi, wheezes Cardiovascular exam: PRESENT: RRR. ABSENT: diastolic murmur, rubs, systolic murmur GI/Abdominal exam: PRESENT: normal bowel sounds, soft. ABSENT: distended, guarding, mass, organolmegaly, rebound, tenderness Rectal exam: PRESENT: deferred Extremities exam: PRESENT: full ROM. ABSENT: calf tenderness, clubbing, pedal edema Neurological exam: PRESENT: alert, awake, oriented to person, oriented to place , oriented to time, oriented to situation. ABSENT: motor sensory deficit Psychiatric exam: PRESENT: appropriate affect, normal mood. ABSENT: homicidal ideation, suicidal ideation Skin exam: PRESENT: dry, intact, warm. ABSENT: cyanosis, rash Results Laboratory Results: 02/18/18 06:14 02/18/18 06:14 Sodium 141.4 Potassium 3.5 L Chloride 105 Carbon Dioxide 27 Anion Gap 9 BUN 5 L Creatinine 0.47 L Est GFR ( Amer) > 60 Est GFR (Non-Af Amer) > 60 Glucose 81 Calcium 8.2 L Total Bilirubin 0.6 AST 115 H ALT 103 H Alkaline Phosphatase 74 Total Protein 5.4 L Albumin 3.1 L Lipase 806.8 H Impressions: Head CT 02/13/18 12:25 IMPRESSION: NORMAL BRAIN CT WITHOUT CONTRAST. EVIDENCE OF ACUTE STROKE: NO. Abdomen Ultrasound 02/13/18 15:29 IMPRESSION: Hepatomegaly. Fatty infiltration of the liver. Positive sonographic Desai sign. No gallstones. Assessment & Plan - Diagnosis (1) Acute on chronic pancreatitis Is this a current diagnosis for this admission?: Yes Plan: Continue hydration and pain management. (2) Hypokalemia Is this a current diagnosis for this admission?: Yes Plan: We will replete (3) Elevated liver chemistry Is this a current diagnosis for this admission?: Yes Plan: Most probably related to her acute pancreatitis. (4) UTI (urinary tract infection) Is this a current diagnosis for this admission?: Yes Plan: Urine culture grew E. coli. Continue current antibiotic regimen. (5) Morbid obesity with BMI of 50.0-59.9, adult Is this a current diagnosis for this admission?: Yes Plan: Patient is status post gastric bypass surgery. Lifestyle modification advised.
[2018-02-19] MEDS: ONDANSETRON HCL INJ/PF 4 MG/2 ML SDV IV PRN (04:19)
[2018-02-19] MEDS: RINGERS SOLUTION,LACTATED 1,000 ML IV PRN (04:23)
[2018-02-19] MEDS: HYDROCODONE/ACETAMINOPHEN 10-325 MG TABLET PO PRN (05:27)
--- NOTE | 2018-02-19 10:02 | PDOC DISCHARGE SUMMARY ---
General - Admit/Disc Date/PCP Admission Date/Primary Care Provider: 02/16/18 13:44 Discharge Date: 02/19/18 - Discharge Diagnosis (1) Acute on chronic pancreatitis Is this a current diagnosis for this admission?: Yes (2) Hypokalemia Is this a current diagnosis for this admission?: Yes (3) Elevated liver chemistry Is this a current diagnosis for this admission?: Yes (4) UTI (urinary tract infection) Is this a current diagnosis for this admission?: Yes (5) Morbid obesity with BMI of 50.0-59.9, adult Is this a current diagnosis for this admission?: Yes - Additional Information Resuscitation Status: Full Code Home Medications: Acetaminophen [Tylenol 325 mg Tablet] 650 mg PO Q6HP PRN 02/14/18 Ibuprofen/Diphenhydramine HCl [Advil Pm Liqui-Gels] 2 each PO QHS PRN 02/14/18 Sumatriptan Succinate [Imitrex] 6 mg SQ Q2HP PRN MDD 2 doses in 24 hours History of Present Illness History of Present Illness: GILBERT WANG is a 42 year old female patient presented with nausea vomiting and abdominal pain.Patient states that yesterday she developed a headache around 2 PM. Patient reports that she has had nausea and vomiting for the past 4 days. Patient reports intermittent right upper quadrant abdominal pain off and on chronically that she attributes to her gastric bypass although symptoms seem to worsen over the past several months. Patient states that she had some left arm numbness and tingling sensation that went to her left side of her head and neck. Patient states she did have some spots to her vision although her vision has now cleared. Patient states that she had the arm and facial paresthesia start today around 930 and has been intermittent. Patient states that she did drink alcohol prior to the onset of the vomiting symptoms. When she started to have vomiting with abdominal tenderness she stopped drinking alcohol. Patient does wear corrective contact lenses and had a recent visual acuity exam about 3 months ago. Hospital Course Hospital Course: his is 42 years old female patient admitted with chief complaint of abdominal pain, nausea and vomiting. Her initial blood work shows markedly elevated lipase of 1064. And her potassium is also low 3.1. Patient is being managed with IV fluid hydration and pain management her potassium also repleted. Currently her abdominal pain has subsided. Her diet advanced at to solid food and patient able to eat well and tolerates well. Her lipase has been trending down. Her vital signs and her blood works are stable and patient is good to go. Physical Exam Vital Signs: Temp Pulse Resp BP Pulse Ox 98.4 F 89 17 144/87 H 100 02/19/18 08:14 02/19/18 08:14 02/19/18 08:14 02/19/18 08:14 02/19/18 08:14 Intake & Output 02/18/18 02/19/18 02/20/18 06:59 06:59 06:59 Intake Total 2510 5308 Output Total 1400 1700 600 Balance 1110 3608 -600 Weight 173.4 kg 174.3 kg General appearance: PRESENT: no acute distress, well-developed, well-nourished Head exam: PRESENT: atraumatic, normocephalic Eye exam: PRESENT: conjunctiva pink, EOMI, PERRLA. ABSENT: scleral icterus Ear exam: PRESENT: normal external ear exam Mouth exam: PRESENT: moist, tongue midline Neck exam: ABSENT: carotid bruit, JVD, lymphadenopathy, thyromegaly Respiratory exam: PRESENT: clear to auscultation geetha. ABSENT: rales, rhonchi, wheezes Cardiovascular exam: PRESENT: RRR. ABSENT: diastolic murmur, rubs, systolic murmur Pulses: PRESENT: normal dorsalis pedis pul Vascular exam: PRESENT: normal capillary refill GI/Abdominal exam: PRESENT: normal bowel sounds, soft. ABSENT: distended, guarding, mass, organolmegaly, rebound, tenderness Rectal exam: PRESENT: deferred Extremities exam: PRESENT: full ROM. ABSENT: calf tenderness, clubbing, pedal edema Neurological exam: PRESENT: alert, awake, oriented to person, oriented to place , oriented to time, oriented to situation, CN II-XII grossly intact. ABSENT: motor sensory deficit Psychiatric exam: PRESENT: appropriate affect, normal mood. ABSENT: homicidal ideation, suicidal ideation Skin exam: PRESENT: dry, intact, warm. ABSENT: cyanosis, rash Results Laboratory Results: 02/18/18 06:14 Impressions: Head CT 02/13/18 12:25 IMPRESSION: NORMAL BRAIN CT WITHOUT CONTRAST. EVIDENCE OF ACUTE STROKE: NO. Abdomen Ultrasound 02/13/18 15:29 IMPRESSION: Hepatomegaly. Fatty infiltration of the liver. Positive sonographic Desai sign. No gallstones. Qualifiers - * PATIENT BEING DISCHARGED WITH ANY OF THE FOLLOWING DIAGNOSIS: No
[2018-02-19 12:11] VITALS: BP 127/78
== END 2018-02-19 13:50 | disposition home or self-care (01) | DRG 439 ==
LOC: ER 11:40 → EH 18:22 → INTOOBSV 18:22 → 2N 20:40 → OBSVTOIN 02-16 13:44
PROVIDERS: ADMIT Internal Medicine; ATTEND Internal Medicine
DX: K85.90 Acute pancreatitis without necrosis or infection, unspecified (principal); N39.0 Urinary tract infection, site not specified; Z68.43 Body mass index [BMI] 50.0-59.9, adult; B96.20 Unspecified Escherichia coli [E. coli] as the cause of diseases classified elsewhere; K86.1 Other chronic pancreatitis; E66.01 Morbid (severe) obesity due to excess calories; G43.909 Migraine, unspecified, not intractable, without status migrainosus; E87.6 Hypokalemia; I10 Essential (primary) hypertension; R94.5 Abnormal results of liver function studies; Z98.84 Bariatric surgery status; Z87.891 Personal history of nicotine dependence; Z88.6 Allergy status to analgesic agent; Z88.2 Allergy status to sulfonamides; Z88.8 Allergy status to other drugs, medicaments and biological substances; Z90.89 Acquired absence of other organs
CPT/HCPCS: 36415; 70450; 76705; 80053; 80307; 81001; 81025; 83690; 83735; 85025; 87086; 87088; 87186; 96361; 96374; 99285; G0378; J0696; J1170; J1650; J1956; J2405; J3030; J3480; J7030; J7120; S0119

== ENCOUNTER → 2018-05-04 | Outpatient (CLI) | payer MEDICAID, MEDICARE ==
[2018-05-04 11:32] LABS: ALANINE AMINOTRANSFERASE 17 U/L (9-52); ALBUMIN 3.7 g/dL (3.5-5.0); ALKALINE PHOSPHATASE 70 U/L (38-126); AMYLASE 35 U/L (30-110); ANION GAP 11 (5-19); ASPARTATE AMINO TRANSFERASE 21 U/L (14-36); BILIRUBIN,DIRECT 0.2 mg/dL (0.0-0.4); BILIRUBIN,TOTAL 0.6 mg/dL (0.2-1.3); BLOOD UREA NITROGEN 10 mg/dL (7-20); CARBON DIOXIDE 26 mmol/L (22-30); CHLORIDE 106 mmol/L (98-107); GLUCOSE 92 mg/dL (75-110); LIPASE 154.9 U/L (23-300); POTASSIUM 3.4 mmol/L (3.6-5.0); SODIUM 143.2 mmol/L (137-145); TOTAL PROTEIN 6.6 g/dL (6.3-8.2)
== END ==
LOC: OD 10:09
PROVIDERS: ATTEND Family Medicine
DX: K85.90 Acute pancreatitis without necrosis or infection, unspecified (principal)
CPT/HCPCS: 36415; 80053; 82150; 83690